=== PATIENT | female | born 1960 | race Two or more races ===

== ENCOUNTER 2024-03-20 10:26 | Outpatient (AMB) | payer OTHER, SELFPAY ==
[2024-03-20 10:27] VITALS: BP 114/70; PULSE 92; O2SAT 97; BMI 27.8
--- NOTE | 2024-03-20 10:27 | A.OFFPC_ITS ---
Vital Signs 03/20/24 10:27 Height 5 ft 2 in Weight 152 lb BMI 27.8 BP 114/70 Blood Pressure Location Lt brachial Position Sitting Pulse 92 Pulse Source Pulse Oximeter Pulse Oximetry (%) 97 Oxygen Delivery Method Room Air Intake Visit Reasons: New Patient Religion Teacher Required: Yes Religion Teacher Language: Malian Allergies aspirin Allergy (Mild, Verified 03/20/24 10:43) Hives Medication List - Last Reconciled 03/20/24 by Arlene Castro PA-C No Known Home Meds Tobacco use date assessed: 03/20/24 Dental Screening Dental Screen Date: 03/20/24 Did you have a dental visit in the last 12 months?: No Did you have a dental problem in the last 6 months where you did not have access to dental care?: No Was dental information given to patient?: Patient has dentist HPI New Patient HPI Details 63-year-old female with no documented pa st medical history coming to the office for the 1st time.? She is not known to [facility]. spanish interpreter was used for the duration of this appointment. She was previously seen by PCP over 2 years ago and is not up-to-date on most routine screenings. She does have some concerns today the 1st being occasionally when she has certain foods she will get rashes all over her body and her lips get swollen but she can not pinpoint a single irritant. Symptoms typically self resolve and she has never been hospitalized for these. She also mentions when she goes from sitting to standing or other positional changes she will occasionally get lightheaded and denies vertigo symptoms. Typically when she has these episodes she is able to sit and take some deep breaths and it self resolves. She has been having occasional shortness of breath and chest tightness and uses her 's albuterol pump which improves her symptoms. No previous history of asthma and no triggers identified. Lastly she is having right lower side pain for about 6 months and does not identify any irritating or relieving factors. [facility] Family History (Updated 03/20/24 @ 10:45 by Arlene Castro PA-C) Brother Prostate cancer Mother Colon cancer Social History Housing: Apartment Patient Tobacco Use Status: Never used Tobacco service: No Cognitive needs: No Hearing needs: No Vision needs: No Questionnaire PHQ-9 Over the last 2 weeks, how often have you been bothered by any of the following problems? 1. Little interest or pleasure in doing things: not at all 2. Feeling down, depressed, or hopeless: not at all 3. Trouble falling or staying asleep, or sleeping too much: not at all 4. Feeling tired or having little energy: not at all 5. Poor appetite or overeating: not at all 6. Feeling bad about yourself - or that you are a failure or have let yourself or your family down: not at all 7. Trouble concentrating on things, such as reading the newspaper or watching television: not at all 8. Moving or speaking so slowly that other people could have noticed. Or the opposite - being so fidgety or restless that you have been moving around a lot more than usual: not at all 9. Thoughts that you would be better off or of hurting yourself in some way: not at all Total score: 0 Depression Screening Interpretation: Negative Depression Screening Done: Yes 98665 - PHQ-9 Billing: Yes Source: Developed by Drs. Wiliam Strickland, Cheri Moreno, Brandon Pruitt and colleagues, with an educational pedro from [employer]. Thrive Questionnaire Date Thrive assessed: 03/20/24 I am a: Patient What is your living situation today?: I have a steady place to live Within the past 12 months, did the food you bought not last and you didn't have the money to get more?: Never true Within the past 12 months, did you worry whether your food would run out before you got money to buy more?: Never true Do you have trouble paying for medicines?: No Do you have trouble getting transportation to medical appointments?: No Do you have trouble paying your heating and electricity bill?: No Do you have trouble taking care of your child, family member or friend?: No Do you have trouble with day-to-day activities such as bathing, preparing meals, shopping, managing finances, etc.?: No Are you currently unemployed and looking for a job?: No Are you interested in more education?: No Please select the resources that you would like help with: None Currently or been in a relationship where the following occur: No concerns reported THRIVE Score: 0 AUDIT C Alcohol Use Questionnaire (AUDIT-C) 1. How often do you have a drink containing alcohol?: Never 2. How many drinks containing alcohol do you have on a typical day when you are drinking?: 1 or 2 (0) 3. How often do you have six or more drinks on one occasion?: Never Total Score: 0 JOSE CARLOS-7 AMB Questionnaire JOSE CARLOS-7 Date JOSE CARLOS - 7 assessed: 03/20/24 Feeling nervous, anxious, or on edge: 0 = Not at all Not being able to stop or control worryin = Not at all Worrying too much about different things: 0 = Not at all Trouble relaxin = Not at all Being so restless that it is hard to sit still: 0 = Not at all Becoming easily annoyed or irritable: 0 = Not at all Feeling afraid as if something awful might happen: 0 = Not at all Total JOSE CARLOS-7 score (0-4 normal; 5-9 mild; 10-14 moderate; 15-21 severe): 0 Source: Developed by Drs. Wiliam Strickland, Cheri Moreno, Brandon Pruitt and colleagues, with an educational pedro from [employer]. JOSE CARLOS-7 Assessment Billing JOSE CARLOS-7 Assessment Tool: JOSE CARLOS-7 Assessment 54408 Review of Systems Const Denies body aches, Denies fatigue, Denies fever(s), Denies frequent falls, Denies headache(s) and Denies weakness Eyes Reports no additional complaints and Denies change in vision ENT Denies dysphagia, Denies dizziness, Denies facial pain, Denies headache(s), Denies nasal congestion and Denies odynophagia Card Denies chest pain, Denies syncope, Denies irregular heart rhythm, Denies leg edema, Reports lightheadedness and Reports dyspnea (Occasional) Resp Reports cough (Occasional) and Reports dyspnea (Occasional) GI Reports constipation, Denies dysphagia, Denies dyspepsia, Denies diarrhea, Denies nausea, Denies odynophagia and Denies vomiting Details: Does mentioned some time she has a funny feeling with urination Denies urinary frequency, Denies dysuria, Denies urinary hesitancy and Denies urinary urgency Musc Denies back pain and Denies myalgias Skin/Breast Reports as per HPI Neuro Denies dizziness, Denies syncope, Denies frequent falls, Denies headache(s) and Denies weakness Psych Reports no additional complaints Endo Denies fatigue Physical exam (Primary Care) Vital Signs: Last Vital Signs Pulse 92 03/20/24 10:27 BP 114/70 03/20/24 10:27 Pulse Ox 97 03/20/24 10:27 Oxygen Delivery Method Room Air 03/20/24 10:27 BMI result Body Mass Index 27.8 Tobacco/Smoking Status: Tobacco use Status Tobacco use date assessed 03/20/24 03/20/24 10:28 Patient Tobacco Use Status Never used Tobacco 03/20/24 10:37 PHQ-9: PHQ-9 Score PHQ-9: Total score 0 03/20/24 10:37 Depression Screening Interpretation: Negative Thrive Assessment: Date of Thrive Assessment Date Thrive assessed 03/20/24 03/20/24 10:28 Currently or been in a relationship where the following occur: No concerns reported Const General: cooperative, healthy appearing, comfortable and no acute distress Orientation/consciousness: patient oriented x3 HENMT Head: Yes normocephalic Ears: hearing grossly normal bilaterally General nose exam: Normal external nose present Eyes General: appearance normal, both eyes and all related structures Conjunctivae: conjunctivae normal Neck Neck: Yes full ROM and Yes no lymphadenopathy Resp Effort & Inspection: normal respiratory effort Auscultation: clear to auscultation bilaterally, no crackles, no rales, no rhonchi and no wheezes Cardio Rate: regular rate Rhythm: regular rhythm GI Palpation (GI): Soft to palpation, not firm, nontender, no guarding, not rigid and no masses General: Yes no CVA tenderness Back/Spine/Pelvis Back: no CVA tenderness Skin General skin exam: no rashes or lesions noted Neuro General: patient oriented x3 Gait exam (Neuro): Normal gait present Extrem General: Yes normal to inspection, Yes full ROM and No edema Psych Affect: normal affect Attitude: cooperative Insight: Good insight present (Psych) Judgement: Good judgement present (Psych) Assessment and Plan Assessment & Plan (1) Cough: Code(s): R05.9 - Cough, unspecified Plan: Patient states she will occasionally have cough and shortness of breath and uses her 's albuterol inhaler with good relief. She has never been diagnosed with asthma in the past and does not identify any triggers to her symptoms. Ordered for pulmonary function testing for further evaluation. (2) Hives: Code(s): L50.9 - Urticaria, unspecified Plan: She has been having hives and lip swelling with food but is unsure of exact irritant. Advised patient to have liquid Benadryl on hand at all times in the event her symptoms do not self resolve. Also reviewed red flag symptoms of anaphylaxis and when to presents to the ER. Referral placed for cash shortage investigator today. (3) Impaired glucose tolerance: Code(s): R73.02 - Impaired glucose tolerance (oral) Plan: Patient states in the past she has been diagnosed with sugar problems but is unsure of what. Ordered for A1c for further evaluation. (4) Right lower quadrant pain: Code(s): R10.31 - Right lower quadrant pain Plan: Patient reports right lower quadrant tenderness however no tenderness on exam to right lower quadrant or right flank. Ordered for blood work and urinalysis for further evaluation. No indication of acute abdomen at this time. (5) Lightheadedness: Code(s): R42 - Dizziness and giddiness Plan: Based on history patient most likely has some aspect of orthostatic hypotension as most of her symptoms come from positional changes. Advised patient to stay well hydrated and added electrolytes with Gatorade or liquid IV. Also recommended trial of compression stockings and advised patient to moves slowly when moving from sitting to standing. Ordered blood work for further evaluation as well. (6) Constipation: Code(s): K59.00 - Constipation, unspecified Plan: Advised patient to increase water intake as well as vegetable and fruit intake. Prescription for senna sent to pharmacy. Plan Patient is not up-to-date on routine annual mammograms and referral was placed today. Her last colonoscopy was over 10 years ago and referral placed to gastroenterology today. Updated blood work ordered. This note was constructed using voice recognition software. While every effort has been made to ensure accuracy and property man, still areas may have been included sometimes these areas may affect the content or meeting of the given symptoms. Total time spent caring for the patient today was 30 minutes. This includes time spent before the visit reviewing the chart, time spent during the visit, and time spent after the visit and documentation. Orders: Orders MM tomosynthesis screening BI Today Z12.31 - Encounter for screening mammogram for malignant neoplasm of breast Hemoglobin A1c Today Z00.00 - Encounter for general adult medical examination without abnormal findings Vitamin B12 and Folate Today Z00.00 - Encounter for general adult medical exami [facility] without abnormal findings PFT pulmonary function test Today R05.9 - Cough, unspecified Complete Blood Count Auto Diff Today Z00.00 - Encounter for general adult medical examination without abnormal findings Comprehensive Met. Panel Today Z00.00 - Encounter for general adult medical examination without abnormal findings Free T4 (Free Thyroxine) Today Z00.00 - Encounter for general adult medical examination without abnormal findings Lipid Panel Today Z00.00 - Encounter for general adult medical examination without abnormal findings TSH reflex Free T4 Today Z00.00 - Encounter for general adult medical examination without abnormal findings Vitamin D 25-OH (D2 and D3) Today Z00.00 - Encounter for general adult medical examination without abnormal findings UA CC w/rflx Micro + Cult Today R35.89 - Other polyuria Referrals Allergy & Immunology Referral L50.9 - Urticaria, unspecified Gastroenterology Referral Z12.11 - Encounter for screening for malignant neoplasm of colon Medications: New sennosides (senna) 8.6 mg PO BEDTIME 20 caps 0RF Coding Level of Care Code New Pt Level 4 (43161) Diagnoses Cough R05.9 Hives L50.9 Impaired glucose tolerance R73.02 Right lower quadrant pain R10.31 Lightheadedness R42 Constipation K59.00 Additional Codes JOSE CARLOS-7 Assessment Billing - JOSE CARLOS-7 Assessment Tool: JOSE CARLOS-7 Assessment 19717 ([id number])
== END 2024-03-20 11:09 | disposition home or self-care (01) ==
DX: R05.9 Cough, unspecified (principal); L50.9 Urticaria, unspecified; R73.02 Impaired glucose tolerance (oral); R10.31 Right lower quadrant pain; R42 Dizziness and giddiness; K59.00 Constipation, unspecified

== ENCOUNTER → 2024-03-20 10:26 | Outpatient (BNVA) | payer OTHER, SELFPAY | DX: R05.9 Cough, unspecified (principal); L50.9 Urticaria, unspecified; R73.02 Impaired glucose tolerance (oral); R10.31 Right lower quadrant pain; R42 Dizziness and giddiness; K59.00 Constipation, unspecified | CPT/HCPCS: 96127; 99202 ==

== ENCOUNTER 2024-04-30 13:11 | Outpatient (REF) | payer OTHER, SELFPAY ==
--- NOTE | ~2024-04-30 | MM_ITS ---
EXAMINATION: MM SCREENING DIGITAL BREAST TOMOSYNTHESIS, BILATERAL CLINICAL INFORMATION: Screening. Asymptomatic. COMPARISON: Mammography: Baseline. TECHNIQUE: Digital breast mammography with tomosynthesis is performed in both the craniocaudal and mediolateral oblique views along with computer-aided detection (CAD). FINDINGS: There are scattered areas of fibroglandular density (ACR BI-RADS breast composition Category b). There are no significant masses, abnormal calcifications, or other abnormalities. MM/MM tomosynthesis screening BI IMPRESSION: No mammographic evidence of malignancy. ASSESSMENT: BI-RADS BI-RADS 1 - Negative RECOMMENDATION: Routine annual mammography screening. 1 year F/U This examination should not preclude the clinical evaluation of a suspicious palpable abnormality. This patient's information was entered into a reminder system with a target due date for their next mammogram. Electronically signed by: Beverly Sevilla DO 05/09/2024 01:40 PM [facility]
[2024-04-30 08:35] VITALS: PULSE 88; RESP 16; O2SAT 97
--- NOTE | 2024-04-30 13:47 | PFT_ITS ---
Flows: FEV1: 92 % of predicted at 2.05 L FVC: 80 % of predicted at 2.25 L FEV1/FVC: 91 % Bronchodilator response: Not performed Volumes: Total lung capacity: 84 % of predicted at 3.95 L Residual volume: 78 % of predicted at 1.31 L Slow vital capacity: 87 % of predicted at 2.64 L Expiratory reserve volume: 119 % of predicted at 0.86 L Diffusion capacity: Normal Impression: No obstructive or restrictive ventilatory defect. No bronchodilator response. Normal pulmonary function test. MTDD
== END 2024-04-30 13:12 | disposition home or self-care (01) ==
LOC: HO.RESP 13:11
DX: Z12.31 Encounter for screening mammogram for malignant neoplasm of breast (principal); R05.9 Cough, unspecified
CPT/HCPCS: 77063; 77067; 94010; 94640; 94727; 94729

== ENCOUNTER → 2024-04-30 13:47 | Outpatient (BNV) | payer OTHER, SELFPAY | PROVIDERS: Visit Provider Internal Medicine Pulmonary Disease | DX: R05.9 Cough, unspecified (principal) | CPT/HCPCS: 94060; 94727; 94729 ==

== ENCOUNTER → 2024-04-30 15:00 | Outpatient (BNV) | payer OTHER, SELFPAY | PROVIDERS: Visit Provider Internal Medicine | DX: Z12.31 Encounter for screening mammogram for malignant neoplasm of breast (principal) | CPT/HCPCS: 77063; 77067 ==

== ENCOUNTER 2024-05-15 11:21 | Emergency (ER) | payer OTHER, SELFPAY ==
[2024-05-15 11:22] VITALS: BP 97/61; PULSE 101; RESP 18; TEMP 36.6; O2SAT 96; BMI 28.3
--- NOTE | 2024-05-15 11:27 | ED_ITS ---
HPI - Female Genitourinary General Chief complaint: Urogenital-Female Stated complaint: uti Time Seen by Provider: 05/15/24 12:07 Source: patient Mode of arrival: ambulatory Limitations: no limitations History of Present Illness ED Provider: Dylon Frederick HPI Narrative: 64-year-old female presents to ED for diverticulosis, presents to ED for dysuria and increased urinary frequency. Patient denies any calf pain, abdominal pain, nausea, vomiting, fever, or chills. Related Data Previous Rx's ?Medication ?Instructions ?Recorded sennosides 8.6 mg capsule (senna) 8.6 mg PO BEDTIME #20 caps 03/20/24 cephalexin 500 mg capsule 500 mg PO Q12H 7 days #14 caps 05/15/24 Allergies Allergy/AdvReac Type Severity Reaction Status Date / Time aspirin Allergy Mild Hives Verified 05/15/24 11:25 Review of Systems Review of Systems: dysuria and increase urinary frequiency Yes all other systems are reviewed and are negative [facility] Family History Family History (Updated 03/20/24 @ 10:45 by Arlene Castro PA-C) Brother Prostate cancer Mother Colon cancer Social History Social History Housing: Apartment Patient Tobacco Use Status: Never used Tobacco Advance Directives: No Advance Directives Information Provided: Yes Do you have a plan to hurt others: No Plan service: No Cognitive needs: No Hearing needs: No Vision needs: No Physical Exam Vital Signs: Vital Signs: Last Vital Signs Temp 97.9 F 05/15/24 12:55 Pulse 93 05/15/24 12:55 Resp 18 05/15/24 12:55 BP 123/80 05/15/24 12:55 Pulse Ox 97 05/15/24 12:55 O2 Del Method Room Air 05/15/24 12:55 BMI result Body Mass Index 28.3 Const: General: cooperative, healthy appearing, comfortable, no acute distr ess, well developed, alert, awake and Physically active Orientation/consciousness: patient oriented x3 HEENT: Head: Yes normal to inspection, Yes No palpable skull fracture present, Yes normocephalic and Yes atraumatic Eyes: General: appearance normal, both eyes and all related structures Neck: Neck: Yes normal visual inspection, Yes full ROM, Yes no lymphadenopathy, Yes no meningeal signs, Yes trachea midline, Yes supple, No anterior neck swelling and No tender Chest: Chest palpation & inspection: normal inspection of the chest and normal palpation of entire chest wall Resp: Effort & Inspection: normal respiratory effort and able to speak in complete sentences Auscultation: clear to auscultation bilaterally Cardio: Jugular venous distension: no JVD Heart sounds: S1 normal heart sound present and S2 normal heart sound present GI: Inspection: Yes normal to inspection Palpation (GI): Soft to palpation, not firm, nontender, no guarding and not rigid : General: No CVA tenderness and Yes no CVA tenderness Back/Spine/Pelvis: Back: no CVA tenderness, No CVA tenderness and No back tenderness Skin: General skin exam: no rashes or lesions noted, elasticity normal and turgor normal Neuro: General: patient oriented x3, gait normal, tone normal, moves all extremities, Normal light touch and pain sensation, no meningeal signs, no focal motor deficits, CN's II-XI intact bilaterally and normal sensation to monofilament Extrem: General: Yes normal to inspection, Yes full ROM and Yes capillary refill normal Psych: Appearance: grossly normal, well kempt and not disheveled Course Course Course Narrative: RME: 54-year-old female presents to ED for urinary symptoms for 1 week described as dysuria and increased urinary frequency. UA ordered Medical Decision Making Medical Decision Making [facility] Narrative: 64 yold yold female presents to the ED for dysuria and increase Urinary frequency. Not suspecting kidney stones, pyelonephritis, urosepsis, hydronephrosis, or STI. Patient explained worrisome signs and informed to return to the ED immediately. Differential Diagnosis Differential Diagnoses: The differential diagnosis associated with the presentation includes (UTI) Admission/Observation Consideration of admission/observation: Escalation of care including admission/observation considered Lab Data [facility] Lab Attestation statement: I reviewed the patient's lab results. Labs: Lab Results 05/15/24 Range/Units 11:48 Urine Color Yellow Urine Appearance Clear Urine pH 7.0 (5.0-9.0) Ur Specific [place] 1.010 (1.005-1.025) Urine Protein Negative (Neg-Trace) mg/dL Urine Glucose (UA) Negative (Negative) mg/dL Urine Ketones Negative (Negative) mg/dL Urine Blood Negative (Negative) Urine Nitrite Positive H (Negative) Ur Leukocyte Esterase Small (1+) H (Negative) Urine RBC 0-2 (0-2) /HPF Urine WBC 21-50 H (0-5) /HPF Ur Squamous Epith Cells 0-2 (0-2) /HPF Urine Bacteria 4+ (None Seen) Hyaline Casts 0-2 (0-2) /LPF Independent Historian Clinical information obtained from an independent historian. History obtained from or confirmed by: Other (patinet) External Record Review External record reviewed: Other (Prior visit) Discharge Plan Discharge Clinical Impression: UTI (urinary tract infection) Patient Disposition: Home, Self-Care Instructions: Urinary Tract Infection in Men (ED) Additional Instructions: You tested positive for a urinary tract infection. you will be discharged with antibiotics. Recommend follow up with PCP. Return to the ED immediately for abdominal pain, flank pain, fever, chills, dysuria, hematuria, nausea, vomiting, or any other concerning symptoms. Prescriptions: New cephalexin 500 mg capsule 500 mg PO Q12H 7 Days Qty: 14 0RF No Action senna 8.6 mg capsule 8.6 mg PO BEDTIME Qty: 20 0RF Interventions: ED Discharge Assessment Last Done: 05/15/24 12:55 Discharge Date/Time: 05/15/24 12:55 Print Language: Puerto [place]ican
[2024-05-15 11:56] LABS: Appearance Urine Clear; Color Urine Yellow; Glucose Urine UA Negative (Negative); Leukocyte Esterase Urine Small (1+) (Negative); Nitrite Urine Positive (Negative); UMIC TRIGGER UACC YES; Urine Blood Negative (Negative); Urine Ketones Negative (Negative); Urine Protein Negative (Neg-Trace)
[2024-05-15 11:59] LABS: Bacteria Urine 4+ (None Seen); Hyaline Casts Urine 0-2 /LPF (0-2); RBC Urine 0-2 /HPF (0-2); Squamous Epithelial Cell Urine 0-2 /HPF (0-2); UACC Culture Trigger YES; WBC Urine 21-50 /HPF (0-5)
[2024-05-15 12:28] VITALS: BP 123/80; PULSE 93; RESP 18; TEMP 36.6; O2SAT 97
[2024-05-15 12:55] VITALS: BP 123/80; PULSE 93; RESP 18; TEMP 36.6; O2SAT 97
== END 2024-05-15 12:55 | disposition home or self-care (01) ==
PROVIDERS: Physician Assistant; Emergency Provider Emergency Medicine
DX: N39.0 Urinary tract infection, site not specified (principal); R30.0 Dysuria; Z79.899 Other long term (current) drug therapy
CPT/HCPCS: 81001; 87086; 87088; 87186; 99283

== ENCOUNTER 2024-06-30 09:23 | Outpatient (REF) | payer OTHER, SELFPAY ==
[2024-06-30 10:01] LABS: MANUAL DIFF FLAG NO
[2024-06-30 10:46] LABS: Basophils Percent Auto 0.8 % (0-2); Eosinophils Absolute Auto 0.2 X10*3/uL (0.0-0.4); Eosinophils Percent Auto 3.1 % (0-4); Hematocrit 41.9 % (37.0-47.0); Hemoglobin 13.5 g/dl (12.0-16.0); Imm Gran Abs Auto 0.04 X10*3/uL (0.00-0.03); Imm Gran Pct Auto 0.8 % (0.0-0.4); Lymphocytes Absolute Auto 1.8 X10*3/uL (1.2-4.9); Lymphocytes Percent Auto 34.4 % (20-40); Mean Corpuscular HGB Conc 32.2 g/dl (31.0-35.0); Mean Corpuscular Hemoglobin 25.4 pg (27.0-33.0); Mean Corpuscular Volume 78.9 fL (80.0-98.0); Mean Platelet Volume 10.6 fL (9.4-12.3); Monocytes Absolute Auto 0.5 X10*3/uL (0.1-1.2); Monocytes Percent Auto 8.7 % (2-11); Neutrophils Absolute Auto 2.7 x10*3/uL (2.0-8.3); Neutrophils Percent Auto 52.2 % (45-73); Platelet Count 232 X10*3/uL (160-400); Red Blood Count 5.31 X10*6/uL (4.20-5.50); Red Cell Distribution Width 14.4 % (11.0-16.0); White Blood Count 5.2 X10*3/uL (4.8-10.8)
[2024-06-30 11:21] LABS: Estimated Average Glucose 120 mg/dL; Hemoglobin A1C 135.5873 umol/L; Hemoglobin A1c % 5.8 % (<6.0); Total Hemoglobin (HGBA1C) 3389.2449 umol/L
[2024-06-30 11:53] LABS: Folate 10.5 ng/mL (> or = 4.0); Vitamin B12 484 pg/mL (200-900)
[2024-06-30 12:25] LABS: Free T4 (Free Thyroxine) 0.98 ng/dL (0.71-1.85); TSH reflex Free T4 1.74 uIU/mL (0.32-4.0)
[2024-06-30 12:26] LABS: Alanine Aminotransferase 16 U/L (0-31); Albumin Level 3.9 g/dL (3.5-5.0); Alkaline Phosphatase 67 U/L (39-117); Anion Gap 9 (12-20); Aspartate Amino Transferase 19 U/L (5-31); Bilirubin Total 0.6 mg/dL (0.0-1.0); Blood Urea Nitrogen 9 mg/dL (9-16); Calcium 9.7 mg/dL (8.4-10.2); Carbon Dioxide 25 mmol/L (22-29); Chloride 111 mmol/L (96-108); Cholesterol 217 mg/dL (<200); Estimated Glomerular Filt Rate > 60; Glucose Random 98 mg/dL (60-115); HDL Cholesterol 48 mg/dL (>40); LDL Cholesterol Calculated 144 mg/dL (<100); Potassium 3.6 mmol/L (3.3-5.1); Sodium 141 mmol/L (135-145); Total Protein 6.9 g/dL (6.5-8.0); Triglycerides 128 mg/dL (<150)
[2024-06-30 12:27] LABS: Appearance Urine Clear; Color Urine Yellow; Glucose Urine UA Negative (Negative); Leukocyte Esterase Urine Large (3+) (Negative); Nitrite Urine Positive (Negative); PH 5.5 (5.0-9.0); UMIC TRIGGER UACC YES; Urine Blood Negative (Negative); Urine Ketones Negative (Negative); Urine Protein Negative (Neg-Trace)
[2024-06-30 12:30] LABS: Bacteria Urine 4+ (None Seen); Hyaline Casts Urine 0-2 /LPF (0-2); RBC Urine 0-2 /HPF (0-2); UACC Culture Trigger YES; WBC Urine >50 /HPF (0-5)
[2024-07-03 14:33] LABS: Vitamin D 25-OH, D2 10 ng/mL; Vitamin D 25-OH, D3 21 ng/mL; Vitamin D 25-OH, Total 31 ng/mL (30-100)
== END 2024-06-30 09:24 | disposition home or self-care (01) ==
LOC: HO.LAB 09:23
DX: Z00.00 Encounter for general adult medical examination without abnormal findings (principal)
CPT/HCPCS: 36415; 80053; 80061; 81001; 82306; 82607; 82746; 83036; 84439; 84443; 85025; 87086; 87088; 87186

== ENCOUNTER 2024-07-01 07:45 | Outpatient (AMB) | payer OTHER, SELFPAY ==
[2024-07-01 08:00] VITALS: BP 114/62; PULSE 85; O2SAT 97; BMI 28.2
--- NOTE | 2024-07-01 08:00 | A.OFFPC_ITS ---
Vital Signs 07/01/24 08:00 Height 5 ft 2 in Weight 154 lb BMI 28.2 BP 114/62 Blood Pressure Location Lt brachial Position Sitting Pulse 85 Pulse Source Pulse Oximeter Pulse Oximetry (%) 97 Oxygen Delivery Method Room Air Intake Visit Reasons: annual exam Plate Painter Required: Yes Plate Painter Language: [place] Allergies aspirin Allergy (Mild, Verified 07/01/24 08:15) Hives Medication List - Last Reconciled 07/01/24 by Arlene Castro PA-C albuterol sulfate 90 mcg/actuation 1 puff inhalation QID hydroxyzine HCl 25 mg PO BID PRN sennosides (senna) 8.6 mg PO BEDTIME Tobacco use date assessed: 07/01/24 Fall risk assessment: No Falls in past year Last assessed Fall Risk: 07/01/24 Dental Screening Dental Screen Date: 07/01/24 Did you have a dental visit in the last 12 months?: Yes Did you have a dental problem in the last 6 months where you did not have access to dental care?: No Was dental information given to patient?: Patient has dentist HPI annual exam HPI Details 64 year old female with past history of impaired glucose tolerance and constipation last seen February 2024 coming in for annual exam.? In review of the notes, patient was seen in emergency department for urinary tract infection April 2024.? Patient completed pulmonary function testing which was normal and mammogram completed April 2024 BI-RADS 1 follow up in [address] commissioner used for the duration of this visit ID [id number]. [id number]. Patient has an appointment on July 23 with the retail pricing coordinator for her chronic hives. Kingsley lujan still has occasional cough and has been using nebulized albuterol that was previously given by a different PCP. She is having lower pelvic pain and frequent urination and urinalysis positive for UTI. Patient tells us today for the last several months she has been having sharp left-sided headache that lasts about 2 minutes in his followed by numbness and tingling that takes hours to resolve. Denies any weakness or pain with the numbness and tingling. Has not had this in the past and states she will pinch her face and can not feel anything. PFSH Family History Brother Prostate cancer Mother Colon cancer Social History Housing: Apartment Patient Tobacco Use Status: Never used Tobacco Tobacco use type: Cigarette e-Cigarette/Vaping Use: Never Used Second Hand Smoke Exposure: No service: No Cognitive needs: No Hearing needs: No Vision needs: No Questionnaire PHQ-9 Over the last 2 weeks, how often have you been bothered by any of the following problems? 1. Little interest or pleasure in doing things: not at all 2. Feeling down, depressed, or hopeless: not at all 3. Trouble falling or staying asleep, or sleeping too much: not at all 4. Feeling tired or having little energy: not at all 5. Poor appetite or overeating: not at all 6. Feeling bad about yourself - or that you are a failure or have let yourself or your family down: not at all 7. Trouble concentrating on things, such as reading the newspaper or watching television: not at all 8. Moving or speaking so slowly that other people could have noticed. Or the opposite - being so fidgety or restless that you have been moving around a lot more than usual: not at all 9. Thoughts that you would be better off or of hurting yourself in some way: not at all Total score: 0 Source: Developed by Drs. Wiliam Strickland, Cheri Moreno, Brandon Pruitt and colleagues, with an educational pedro from [employer]. Thrive Questionnaire Date Thrive assessed: 07/01/24 I am a: Patient What is your living situation today?: I have a steady place to live Within the past 12 months, did the food you bought not last and you didn't have the money to get more?: Sometimes True Within the past 12 months, did you worry whether your food would run out before you got money to buy more?: Sometimes True Do you have trouble paying for medicines?: No Do you have trouble getting transportation to medical appointments?: No Do you have trouble paying your heating and electricity bill?: I choose not to answer this question Do you have trouble taking care of your child, family member or friend?: I choose not to answer this question Do you have trouble with day-to-day activities such as bathing, preparing meals, shopping, managing finances, etc.?: No Are you currently unemployed and looking for a job?: No Are you interested in more education?: I choose not to answer this question Please select the resources that you would like help with: Housing/[facility] THRIVE Score: 2 AUDIT C Alcohol Use Questionnaire (AUDIT-C) 1. How often do you have a drink containing alcohol?: Never Total Score: 0 JOSE CARLOS-7 AMB Questionnaire JOSE CARLOS-7 Date JOSE CARLOS - 7 assessed: 07/01/24 Feeling nervous, anxious, or on edge: 0 = Not at all Not being able to stop or control worryin = Several days Worrying too much about different things: 1 = Several days Trouble relaxin = Several days Being so restless that it is hard to sit still: 0 = Not at all Becoming easily annoyed or irritable: 0 = Not at all Feeling afraid as if something awful might happen: 0 = Not at all Total JOSE CARLOS-7 score (0-4 normal; 5-9 mild; 10-14 moderate; 15-21 severe): 3 Source: Developed by Drs. Wiliam Strickland, Cheri Moreno, Brandon Pruitt and colleagues, with an educational pedro from [employer]. Review of Systems Const Denies body aches, Denies fatigue, Denies fever(s), Denies frequent falls, Reports headache(s) and Denies weakness Eyes Reports no additional complaints and Denies change in vision ENT Details: Facial tingling Denies dysphagia, Denies dizziness, Denies facial pain, Reports headache(s), Denies nasal congestion and Denies odynophagia Card Denies chest pain, Denies syncope, Denies irregular heart rhythm, Denies leg edema, Denies lightheadedness and Denies dyspnea Resp Reports cough (occasional) and Denies dyspnea GI Denies abdominal pain, Reports constipation, Denies dysphagia, Denies dyspepsia, Denies diarrhea, Denies nausea, Denies odynophagia and Denies vomiting Details: low pelvic pain and frequent urination Denies urinary frequency, Denies dysuria, Denies urinary hesitancy and Denies urinary urgency Musc Denies back pain and Denies myalgias Skin/Breast Reports system reviewed and no additional complaints, except as documented Neuro Denies dizziness, Denies syncope, Denies frequent falls, Reports headache(s) and Denies weakness Psych Reports no additional complaints Endo Denies fatigue Physical exam (Primary Care) Vital Signs: Last Vital Signs Pulse 85 07/01/24 08:00 BP 114/62 07/01/24 08:00 Pulse Ox 97 07/01/24 08:00 Oxygen Delivery Method Room Air 07/01/24 08:00 BMI result Body Mass Index 28.2 Tobacco/Smoking Status: Tobacco use Status Tobacco use date assessed 07/01/24 07/01/24 08:04 Patient Tobacco Use Status Never used Tobacco 07/01/24 08:04 Tobacco use type Cigarette 07/01/24 08:04 e-Cigarette/Vaping Use Never Used 07/01/24 08:04 PHQ-9: PHQ-9 Score PHQ-9: Total score 0 07/01/24 10:34 Thrive Assessment: Date of Thrive Assessment Date Thrive assessed 07/01/24 07/01/24 08:04 Const General: cooperative, healthy appearing, comfortable and no acute distress Orientation/consciousness: patient oriented x3 HENMT Head: Yes normocephalic Ears: hearing grossly normal bilaterally General nose exam: Normal external nose present Eyes General: appearance normal, both eyes and all related structures Conjunctivae: conjunctivae normal Pupils: Equal, round and reactive pupils present EOM: No Nystagmus present Neck Neck: Yes full ROM and Yes no lymphadenopathy Resp Effort & Inspection: normal respiratory effort Auscultation: clear to auscultation bilaterally, no crackles, no rales, no rhonchi and no wheezes Cardio Rate: regular rate Rhythm: regular rhythm GI Palpation (GI): Soft to palpation, not firm, nontender, no guarding and not rigid General: Yes no CVA tenderness Back/Spine/Pelvis Back: no CVA tenderness Skin Other: scattered hives on arms and abdomen Neuro Other: Facial sensation intact bilaterally General: patient oriented x3 Cranial nerves: Yes CN's II-XII intact bilaterally, Yes Equal, round and reactive pupils present, Yes Normal facial strength present, Yes Ability to bilaterally elevate shoulders present and No Nystagmus present Gait exam (Neuro): Normal gait present Extrem General: Yes normal to inspection, Yes full ROM and No edema Psych Affect: normal affect Attitude: cooperative Insight: Good insight present (Psych) Judgement: Good judgement present (Psych) Coding Level of Care Code Est Pt Level 4 (82559) Est Pt Prev Care 40-64y(95640) Diagnoses Hypercholesterolemia E78.00 Constipation K59.00 Impaired glucose tolerance R73.02 Overweight (BMI 25.0-29.9) E66.3 Asthma J45.909 Cystitis N30.90 Facial numbness R20.0 Assessment & Plan Assessment & Plan (1) Hypercholesterolemia: Code(s): E78.00 - Pure hypercholesterolemia, unspecified Category: Medical Plan: Avoid foods that are high in cholesterol such as red meat, fried foods, eggs and baked goods. Triglyceride goal of less than 150 and LDL goal of less than 130. Cholesterol elevated at 144 on last labs discussed with patient she will work on dietary modification and follow up in 3 months. (2) Constipation: Code(s): K59.00 - Constipation, unspecified Category: Medical Plan: Currently on senna and has seen little improvement. Will give patient Dulolax to use for two days and then transition back to Senna for maintenance. Encouraged to drink plenty of water and increase fiber intake. (3) Impaired glucose tolerance: Code(s): R73.02 - Impaired glucose tolerance (oral) Category: Medical Plan: Decrease the amount of carbohydrates such as pasta, bread, rice, and potatoes and limit the amount of sweets. Although fruits are generally healthy they should be eaten in moderation as they are still high in sugar. A1c 5.8% on last labs (4) Overweight (BMI 25.0-29.9): Code(s): E66.3 - Overweight Category: Medical Plan: Healthy diet and regular exercise is encouraged. (5) Asthma: Code(s): J45.909 - Unspecified asthma, uncomplicated Category: Medical Plan: Asthma currently controlled on present medications. Continue on albuterol as needed.? Avoid triggers such as allergies. Previous diagnosis but PFT was normal. (6) Cystitis: Code(s): N30.90 - Cystitis, unspecified without hematuria Category: Medical Plan: Patient having frequent urination and lower pelvic pain previously treated in ED in April with Keflex. Will treat with Nitrofurantoin for 7 days and have patient repeat urinalysis to ensure infection has cleared. Reviewed red flag symptoms and when to present for re-evaluation. (7) Facial numbness: Code(s): R20.0 - Anesthesia of skin Category: Medical Plan: We will order for head CT for further evaluation. Reviewed red flag symptoms and when to follow up for re-evaluation. Can consider referral to Neurology. Denies any change in vision but we will order for ESR and CRP to evaluate for possible trigeminal neuralgia. Plan This note was constructed using voice recognition software. While every effort has been made to ensure accuracy and soil checker, still areas may have been included sometimes these areas may affect the content or meeting of the given symptoms. Total time spent caring for the patient today was 30 minutes. This includes time spent before the visit reviewing the chart, time spent during the visit, and time spent after the visit and documentation. Orders: Orders Lipid Panel 3 Months E78.00 - Pure hypercholesterolemia, unspecified UA CC w/rflx Micro + Cult 7 Days R35.89 - Other polyuria XR DEXA axial skeleton Today Z78.0 - Asymptomatic menopausal state CT head/brain wo IV con Today R20.0 - Anesthesia of skin Medications: New hydroxyzine HCl 25 mg PO BID PRN 30 tabs 0RF itching nitrofurantoin monohyd/m-cryst 100 mg must administer with a meal/food 100 mg PO Q12H 14 caps 0RF 7 days bisacodyl (Dulcolax (bisacodyl)) 5 mg PO BEDTIME 2 tabs 0RF 2 days albuterol sulfate 0.63 mg (3 mL) inhalation QID PRN 75 mL 0RF shortness of breath or wheezing Refilled sennosides (senna) 8.6 mg PO BEDTIME 20 caps 0RF sennosides (senna) 8.6 mg PO BEDTIME 30 caps 0RF
== END 2024-07-01 08:52 | disposition home or self-care (01) ==
DX: Z00.00 Encounter for general adult medical examination without abnormal findings (principal); E78.00 Pure hypercholesterolemia, unspecified; K59.00 Constipation, unspecified; R73.02 Impaired glucose tolerance (oral); E66.3 Overweight; J45.909 Unspecified asthma, uncomplicated; N30.90 Cystitis, unspecified without hematuria; R20.0 Anesthesia of skin

== ENCOUNTER → 2024-07-01 07:45 | Outpatient (BNVA) | payer OTHER, SELFPAY | DX: Z00.00 Encounter for general adult medical examination without abnormal findings (principal); K59.00 Constipation, unspecified; E78.00 Pure hypercholesterolemia, unspecified; R73.02 Impaired glucose tolerance (oral); E66.3 Overweight; J45.909 Unspecified asthma, uncomplicated; N30.90 Cystitis, unspecified without hematuria; R20.0 Anesthesia of skin; R35.89 Other polyuria; Z78.0 Asymptomatic menopausal state | CPT/HCPCS: 96127; 99212; 99396 ==

== ENCOUNTER 2024-07-18 14:49 | Outpatient (REF) | payer OTHER, SELFPAY ==
[2024-07-18 15:20] LABS: Appearance Urine Clear; Color Urine Yellow; Glucose Urine UA Negative (Negative); Leukocyte Esterase Urine Small (1+) (Negative); Nitrite Urine Negative (Negative); UMIC TRIGGER UACC YES; Urine Blood Negative (Negative); Urine Ketones Negative (Negative); Urine Protein Negative (Neg-Trace)
[2024-07-18 15:37] LABS: Bacteria Urine None Seen (None Seen); Hyaline Casts Urine 0-2 /LPF (0-2); RBC Urine 0-2 /HPF (0-2); Squamous Epithelial Cell Urine 0-2 /HPF (0-2); UACC Culture Trigger YES; WBC Urine 0-5 /HPF (0-5)
== END 2024-07-18 14:50 | disposition home or self-care (01) ==
LOC: HO.LAB 14:49
DX: R35.89 Other polyuria (principal)
CPT/HCPCS: 81001; 87086

== ENCOUNTER → 2024-07-25 11:33 | Outpatient (BNV) | payer OTHER, SELFPAY | PROVIDERS: Visit Provider Specialist | DX: N39.0 Urinary tract infection, site not specified (principal) | CPT/HCPCS: 76775 ==

== ENCOUNTER 2024-07-25 13:52 | Outpatient (AMB) | payer OTHER, SELFPAY ==
--- NOTE | 2024-07-25 14:03 | A.OFFPC_ITS ---
Vital Signs 07/25/24 14:04 Height 5 ft 2 in Weight 150 lb 6 oz BMI 27.5 BP 112/78 Blood Pressure Location Lt brachial Position Sitting Pulse 85 Pulse Source Pulse Oximeter Temp 97.3 F Temp Source Skin Pulse Oximetry (%) 97 Oxygen Delivery Method Room Air Intake Visit Reasons: follow up Intake Note: Patient is here to follow up on Asthma and lab results Director Security Risk Management Required: No Shipwright Helper: Not Required per policy Accompanied by: Self / Same As Patient Allergies aspirin Allergy (Mild, Verified 07/25/24 14:04) Hives Tobacco use date assessed: 07/25/24 Fall risk assessment: No Falls in past year Last assessed Fall Risk: 07/25/24 Dental Screening Dental Screen Date: 07/01/24 HPI follow up HPI Details 64-year-old female with past medical his tory of impaired glucose tolerance and constipation last seen 06/2023 coming in for follow up.?In review of the notes, patient complaining of lower pelvic pain and frequent urination treated for urinary tract infection with nitrofurantoin however symptoms did persist and was treated with Bactrim and is here for follow up. skin installer Gurpreet [id number] used for the duration of this visit. In the beginning of June patient was having frequent and painful urination with suprapubic pain and low back pain. She was also having episodes of incontinence and wears sanitary pads throughout the day. Since being treated with the nitrofurantoin and bactrim she has noticed an improvement in her symptoms however she still has occasional pain with urination and suprapubic pain. She has an implanted IUD which was placed in [place] and is overdue to be removed. PFSH Family History Brother Prostate cancer Mother Colon cancer Social History Housing: Apartment Patient Tobacco Use Status: Never used Tobacco Tobacco use type: Cigarette e-Cigarette/Vaping Use: Never Used Second Hand Smoke Exposure: No service: No Cognitive needs: No Hearing needs: No Vision needs: No Questionnaire Thrive Questionnaire Date Thrive assessed: 06/25/24 I am a: Patient What is your living situation today?: I have a steady place to live Within the past 12 months, did the food you bought not last and you didn't have the money to get more?: Sometimes True Within the past 12 months, did you worry whether your food would run out before you got money to buy more?: Sometimes True Do you have trouble paying for medicines?: No Do you have trouble getting transportation to medical appointments?: No Do you have trouble paying your heating and electricity bill?: I choose not to answer this question Do you have trouble taking care of your child, family member or friend?: I choose not to answer this question Do you have trouble with day-to-day activities such as bathing, preparing meals, shopping, managing finances, etc.?: No Are you currently unemployed and looking for a job?: No Are you interested in more education?: I choose not to answer this question Please select the resources that you would like help with: Housing/[facility] Currently or been in a relationship where the following occur: No concerns reported THRIVE Score: 2 JOSE CARLOS-7 AMB Questionnaire JOSE CARLOS-7 Date JOSE CARLOS - 7 assessed: 07/01/24 Source: Developed by Drs. Wiliam Strickland, Cheri Moreno, Brandon Pruitt and colleagues, with an educational pedro from [employer]. Review of Systems Const Denies body aches, Denies chills, Denies fever(s), Denies headache(s) and Denies poor appetite Eyes Reports no additional complaints ENT Denies dizziness and Denies headache(s) Card Denies chest pain, Denies syncope, Denies edema, Denies irregular heart rhythm, Denies lightheadedness and Denies dyspnea Resp Denies cough and Denies dyspnea GI Denies abdominal pain, Denies constipation, Denies diarrhea, Denies nausea and Denies vomiting Details: pain with urination, suprapubic pain Musc Reports no additional complaints and Denies abnormal gait Skin/Breast Reports system reviewed and no additional complaints, except as documented Neuro Denies abnormal gait, Denies dizziness, Denies syncope and Denies headache(s) Psych Reports no additional complaints Physical exam (Primary Care) Vital Signs: Last Vital Signs Temp 97.3 F 07/25/24 14:04 Pulse 85 07/25/24 14:04 BP 112/78 07/25/24 14:04 Pulse Ox 97 07/25/24 14:04 Oxygen Delivery Method Room Air 07/25/24 14:04 BMI result Body Mass Index 27.5 Tobacco/Smoking Status: Tobacco use Status Tobacco use date assessed 07/25/24 07/25/24 14:08 Patient Tobacco Use Status Never used Tobacco 07/25/24 14:04 Tobacco use type Cigarette 07/25/24 14:04 e-Cigarette/Vaping Use Never Used 07/25/24 14:04 Thrive Assessment: Date of Thrive Assessment Date Thrive assessed 06/25/24 07/25/24 14:04 Currently or been in a relationship where the following occur: No concerns reported Const General: cooperative, healthy appearing, comfortable and no acute distress Orientation/consciousness: patient oriented x3 HENMT Head: Yes normocephalic Ears: hearing grossly normal bilaterally General nose exam: Normal external nose present Eyes General: appearance normal, both eyes and all related structures Conjunctivae: conjunctivae normal Neck Neck: Yes full ROM and Yes no lymphadenopathy Resp Effort & Inspection: normal respiratory effort Auscultation: clear to auscultation bilaterally, no crackles, no rales, no rhonchi and no wheezes Cardio Rate: regular rate Rhythm: regular rhythm GI Palpation (GI): Soft to palpation, not firm, nontender, no guarding and not rigid General: Yes no CVA tenderness Back/Spine/Pelvis Back: no CVA tenderness Skin General skin exam: no rashes or lesions noted Neuro General: patient oriented x3 Gait exam (Neuro): Normal gait present Extrem General: Yes normal to inspection, Yes full ROM and No edema Psych Affect: normal affect Attitude: cooperative Insight: Good insight present (Psych) Judgement: Good judgement present (Psych) Coding Level of Care Code Est Pt Level 4 (10918) Diagnoses Recurrent UTI N39.0 Urinary frequency R35.0 IUD (intrauterine device) in place Z97.5 Dysuria R30.0 Assessment & Plan Assessment & Plan (1) Recurrent UTI: Code(s): N39.0 - Urinary tract infection, site not specified Category: Medical Plan: Referral placed to urology for further evaluation as patient continues to have incontinent episodes as well as pelvic pressure. No evidence of UTI on urinalysis or culture. (2) Urinary frequency: Code(s): R35.0 - Frequency of micturition Category: Medical Plan: Patient complaining of urinary frequency feels a heaviness in her bladder. Ordered for pelvic and transvaginal ultrasound for further evaluation. Also referred to Urology (3) IUD (intrauterine device) in place: Code(s): Z97.5 - Presence of (intrauterine) contraceptive device Category: Medical Plan: Patient has a IUD in place unsure of the brand but knows it is at least several years overdue to be removed. Referral placed to gynecology (4) Dysuria: Code(s): R30.0 - Dysuria Category: Medical Plan: Patient complaining of intermittent pain with urination. Urinalysis not indicative of a urinary tract infection at this time and patient has completed 3 courses of antibiotics for his symptoms. Referral placed to Urology. Also placed orders for vaginosis panel for further evaluation Reviewed with patient red flag symptoms and when to present for re-evaluation Plan This note was constructed using voice recognition software. While every effort has been made to ensure accuracy and receptionist, still areas may have been included sometimes these areas may affect the content or meeting of the given symptoms. Total time spent caring for the patient today was twenty minutes. This includes time spent before the visit reviewing the chart, time spent during the visit, and time spent after the visit and documentation. Orders: Orders Bacterial Vaginosis Panel Today R30.0 - Dysuria US pelvic and transvaginal Today N39.0 - Urinary tract infection, site not specified, R30.0 - Dysuria, R35.0 - Frequency of micturition Referrals Urology Referral N39.0 - Urinary tract infection, site not specified, R35.0 - Frequency of micturition COMPUTER HELP DESK REPRESENTATIVE Referral Z97.5 - Presence of (intrauterine) contraceptive device
[2024-07-25 14:04] VITALS: BP 112/78; PULSE 85; TEMP 36.3; O2SAT 97; BMI 27.5
== END 2024-07-25 14:44 | disposition home or self-care (01) ==
DX: N39.0 Urinary tract infection, site not specified (principal); R35.0 Frequency of micturition; Z97.5 Presence of (intrauterine) contraceptive device; R30.0 Dysuria

== ENCOUNTER 2024-07-25 13:52 | Outpatient (REF) | payer OTHER, SELFPAY ==
[2024-07-26 15:42] LABS: Bacterial Vaginosis PCR NEGATIVE (Negative); Candida Group PCR NOT DETECTED (Not Detect); Candida glab krusei PCR NOT DETECTED (Not Detect); Trichomonas vaginalis PCR NOT DETECTED (Not Detect)
== END 2024-07-25 13:53 | disposition home or self-care (01) ==
LOC: HO.LNP 13:52
DX: R30.0 Dysuria (principal)
CPT/HCPCS: 81515

== ENCOUNTER → 2024-07-29 07:21 | Outpatient (BNV) | payer OTHER, SELFPAY | PROVIDERS: Visit Provider Radiology Diagnostic Radiology | DX: R20.0 Anesthesia of skin (principal) | CPT/HCPCS: 70450 ==

== ENCOUNTER → 2024-07-30 08:09 | Outpatient (REF) | payer OTHER, SELFPAY ==
--- NOTE | ~2024-07-30 | MM_ITS ---
EXAMINATION: DXA BONE DENSITY AXIAL HISTORY: Estrogen deficiency TECHNIQUE: Gradalis Dual energy absorptiometry (DEXA) of the lumbar spine, total left hip, and femoral neck was performed. COMPARISON: There are no prior studies for comparison. FINDINGS: The bone mineral density of the lumbar spine is 1.025 with a T-score of -1.3, and a Z-score of 0.1. The bone mineral density of the left total hip is 0.888 with a T-score of -1.0, and a Z-score of 0.1. The bone mineral density of the left femoral neck is 0.846 with a T-score of -1.4, and a Z-score of 0.0. FRACTURE RISK: The FRAX index suggests a risk of major osteoporotic fracture of 4.7%, and of hip fracture 0.4%. MM/XR DEXA axial skeleton IMPRESSION: Based on bone mineral density, and according to World Health Organization (WHO) criteria, the diagnosis is consistent with osteopenia. All bone density values are in grams per centimeter squared (g/cm2). Statistically, 68% of repeat scans fall within 1 SD (+/- 0.010 g/cm2 for AP spine L1-L4) and 1 SD (+/- 0.012 g/cm2 for femur total) FRAX is a trademark of the [employer] [place] for Metabolic Bone Disease, a World Health Organization (WHO) Collaborating Center. Electronically signed by: Wiliam Ness MD 07/31/2024 07:48 AM EST
== END | disposition home or self-care (01) ==
LOC: HO.MAMMO 08:09
DX: Z13.820 Encounter for screening for osteoporosis (principal); Z78.0 Asymptomatic menopausal state
CPT/HCPCS: 77080

== ENCOUNTER → 2024-07-30 08:17 | Outpatient (BNV) | payer OTHER, SELFPAY | PROVIDERS: Visit Provider Radiology Diagnostic Radiology | DX: E28.39 Other primary ovarian failure (principal) | CPT/HCPCS: 77085 ==

== ENCOUNTER 2024-08-08 14:23 | Outpatient (REF) | payer OTHER, SELFPAY ==
--- NOTE | ~2024-08-08 | US_ITS ---
CLINICAL HISTORY: R30.0 - Dysuria US pelvis transvaginal Comparison: None Findings: Transvaginal scanning performed. Anteverted, anteflexed uterus is 6.9 cm length. One point eight by one point six by one point five cm anterior fundal fibroid. No endometrial lesion, 2 mm thickness. IUD appears low-lying within the cervix and malrotated. Small nabothian cysts noted. Right ovary not visualized Left ovary 3.6 x 1.6 x 1.7 cm 2 x 1.3 x 1.6 cm cyst. Few small calcifications left ovary. Flow not directly assessed. No free fluid. IMPRESSION: Abnormal low-lying and malrotated IUD. Nonvisualization right ovary. Functional appearing cyst left ovary. This document has been electronically signed by: Gurpreet Smith MD on 08/12/2024 12:57:33
== END 2024-08-08 14:24 | disposition home or self-care (01) ==
LOC: HO.US 14:23
DX: R30.0 Dysuria (principal); R35.0 Frequency of micturition; N39.0 Urinary tract infection, site not specified
CPT/HCPCS: 76830; 76856

== ENCOUNTER → 2024-08-08 14:25 | Outpatient (BNV) | payer OTHER, SELFPAY | PROVIDERS: Visit Provider Radiology Diagnostic Radiology | DX: R30.0 Dysuria (principal) | CPT/HCPCS: 76830; 76856 ==

== ENCOUNTER 2024-08-27 11:39 | Emergency (ER) | payer OTHER, SELFPAY ==
--- NOTE | ~2024-08-27 | XR_ITS ---
EXAMINATION: XR CHEST CLINICAL INFORMATION: cough COMPARISON: None available. TECHNIQUE: 2 views of the chest were obtained. FINDINGS: No significant abnormality is noted involving the heart, lungs, mediastinum, bony thorax or soft tissues. XR/XR chest 2V IMPRESSION: Unremarkable chest examination.. Electronically signed by: Mir Monterroso MD 08/27/2024 12:25 PM [facility]
--- NOTE | 2024-08-27 11:57 | ED_ITS ---
HPI - URI/Sore Throat General Chief Complaint: Upper Respiratory Symptoms Stated Complaint: Bronchitis Time Seen by Provider: 08/27/24 14:21 Source: patient, RN notes reviewed and old records reviewed Mode of arrival: ambulatory History of Present Illness ED Provider: Vanita Mills PA-C HPI Narrative: 64-year-old female with a past medical history asthma, constipation, HLD, presenting to the ED complaining of dry cough, congestion, chest congestion, SOB x a few days. Reports whistling sound in lungs. Admits to using inhaler and machine at home. Denies fever, chills, travel, sick contacts, pedal edema. Related Data Home Medications ?Medication ?Instructions ?Recorded ?Confirmed albuterol sulfate 90 mcg/actuation 1 puff inhalation QID 07/01/24 07/01/24 aerosol inhaler Previous Rx's ?Medication ?Instructions ?Recorded albuterol sulfate 0.63 mg/3 mL 0.63 mg (3 mL) inhalation QID PRN 07/01/24 solution for nebulization shortness of breath or wheezing #75 mL bisacodyl 5 mg tablet,delayed 5 mg PO BEDTIME 2 days #2 tabs 07/01/24 release (Dulcolax (bisacodyl)) hydroxyzine HCl 25 mg tablet 25 mg PO BID PRN itching #30 tabs 07/01/24 sennosides 8.6 mg capsule (senna) 8.6 mg PO BEDTIME #30 caps 07/01/24 albuterol sulfate 2.5 mg/0.5 mL 5 mg inhalation Q4H PRN shortness 08/27/24 solution for nebulization of breath or wheezing #30 ea benzonatate 100 mg capsule 100 mg PO TID PRN cough #14 caps 08/27/24 prednisone 20 mg tablet 40 mg (2 x 20 mg) PO DAILY 5 days 08/27/24 #10 tabs Allergies Allergy/AdvReac Type Severity Reaction Status Date / Time aspirin Allergy Mild Hives Verified 08/27/24 12:01 Review of Systems Review of Systems: Yes all other systems are reviewed and are negative Constitutional: Constitutional: Reports as per [facility] Past Medical History Attestation statement: The following information was validated with the patient. Source: old records reviewed Family History Family History Brother Prostate cancer Mother Colon cancer Social History Social History Housing: Apartment Patient Tobacco Use Status: Never used Tobacco Tobacco use type: Cigarette e-Cigarette/Vaping Use: Never Used Second Hand Smoke Exposure: No Advance Directives: No Advance Directives Information Provided: Yes Do you have a plan to hurt others: No Plan service: No Cognitive needs: No Hearing needs: No Vision needs: No Physical Exam Vital Signs: Vital Signs: Last Vital Signs Temp 98.1 F 08/27/24 11:58 Pulse 99 08/27/24 12:49 Resp 18 08/27/24 12:49 BP 122/67 08/27/24 11:58 Pulse Ox 98 08/27/24 11:58 O2 Del Method Room Air 08/27/24 11:58 BMI result Body Mass Index 27.9 Const: General: cooperative, healthy appearing and no acute distress Orientation/consciousness: patient oriented x3 Limitations: no limitations HEENT: Head: Yes normal to inspection and Yes atraumatic Ears: hearing grossly normal bilaterally General nose exam: Normal external nose present Face and sinus: Yes normal facial exam Eyes: General: appearance normal, both eyes and all related structures EOM: EOMs intact bilaterally Neck: Neck: Yes normal visual inspection and Yes no meningeal signs Resp: Effort & Inspection: normal respiratory effort and no respiratory distress Auscultation: clear to auscultation bilaterally, no crackles, no rales, no rhonchi and no wheezes Cardio: Rate: regular rate Heart sounds: S1 normal heart sound present and S2 normal heart sound present Skin: Rashes: no rashes Wounds: no wounds Neuro: General: patient oriented x3, tone normal and no meningeal signs Cranial nerves: Yes CN's II-XII intact bilaterally Gait exam (Neuro): Normal gait present Extrem: General: Yes normal to inspection Course Course Course Narrative: This is a Rapid Medical Exam performed in triage by Vanita Mills PA-C. Full HPI, ROS and PE to be performed by primary ED provider. 64-year-old female with a past medical history of asthma, HLD, constipation, presenting to the ED c/o SOB, chest congestion x few days. PE: Talking in complete sentences. Nontoxic appearing, satting 98 on RA Plan: EKG, viral testing, CXR -1435--COVID/flu/RSV negative XR chest 2V IMPRESSION: Unremarkable chest examination. > Results discussed with patient including worrisome signs and symptoms and strict return precautions, and when to return to the emergency department. They verbalized understanding and feel safe for discharge at this time. Medications Administered Discontinued Medications Generic Name Dose Route Start Last Admin Trade Name Freq PRN Reason Stop Dose Admin Albuterol Sulfate 8 puff 08/27/24 12:43 08/27/24 12:47 Albuterol Sulfate 90 Mcg 8 Gm Inhaler INHALE 08/27/24 12:44 8 puff ONCE ONE Administration Medical Decision Making Medical Decision Making MDM Narrative: 64-year-old female with a past medical history asthma, constipation, HLD, presenting to the ED complaining of dry cough, congestion, chest congestion, SOB x a few days. 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 Concern for asthma exacerbation vs viral illness vs bronchitis vs pneumonia. Lower suspicion for ACS/PE or DVT Plan: EKG, Viral testing, CXR, ED bronch protocol Please refer to course for remaining clinical decision making, interpretation of labs/imaging results, and discussions with consultants and/or family members. Differential Diagnosis Differential Diagnoses: The differential diagnosis associated with the presentation includes As above Lab Data [facility] Lab Attestation statement: I reviewed the patient's lab results. Labs: Lab Results 08/27/24 Range/Units 12:51 Influenza Type A (PCR) NEGATIVE (Negative) Influenza Type B (PCR) NEGATIVE (Negative) RSV RNA Qual (PCR) NEGATIVE (Negative) SARS-CoV-2 RNA (RT-PCR) NEGATIVE (Negative) Independent Interpretation I performed an independent interpretation of an: EKG (EKG my interpretation: Normal sinus rhythm rate of 93. [place] interval 166. QTC 452. No previous EKGs to compare. No STEMI ) Radiology Impression Discussion of test interpretation with radiology: I have reviewed the radiologist's reading. External Record Review External record reviewed: Inpatient record, Office record, Outpatient record, Prior outpatient labs, Prior outpatient radiology, Primary care record and Outside ED record Tests considered The following testing was considered but not selected: As above Prescription Management I considered prescription management with: Pain Medication and Antibiotic Chronic Conditions Patient?s care impacted by: Other (asthma) Social Determinants Patient?s care significantly limited by Social Determinants of Health including: Other Social Determinant of Health Discharge Plan Discharge Clinical Impression: Asthma Patient Disposition: Home, Self-Care Instructions: Asthma (DC) Additional Instructions: You tested negative for COVID, flu, RSV. Your x-ray does not show pneumonia Please take prednisone as prescribed. Tessalon Perles for cough Follow-up with your doctor No antibiotics are indicated at this time Make sure you are staying hydrated. Drink plenty of fluids. Rest Alternate Tylenol and Motrin at home as needed for body aches and fever Follow-up with your doctor. If symptoms persist or worsen return to the e mergency department *If you are a child & not tolerating liquid or urinating for more than 6 hours, or fevers are uncontrolled with medications at home, return to the emergency department* Prescriptions: New prednisone 20 mg tablet 40 mg PO DAILY 5 Days Qty: 10 0RF benzonatate 100 mg capsule 100 mg PO TID PRN (Reason: cough) Qty: 14 0RF albuterol sulfate 2.5 mg/0.5 mL solution for nebulization 5 mg inhalation Q4H PRN (Reason: shortness of breath or wheezing) Qty: 30 0RF No Action hydroxyzine HCl 25 mg tablet 25 mg PO BID PRN (Reason: itching) Qty: 30 0RF albuterol sulfate 90 mcg/actuation HFA aerosol inhaler 1 puff inhalation QID albuterol sulfate 0.63 mg/3 mL solution for nebulization 0.63 mg inhalation QID PRN (Reason: shortness of breath or wheezing) Qty: 75 0RF bisacodyl [Dulcolax (bisacodyl)] 5 mg tablet,delayed release (DR/EC) 5 mg PO BEDTIME 2 Days Qty: 2 0RF senna 8.6 mg capsule 8.6 mg PO BEDTIME Qty: 30 0RF Referrals: Arlene Castro PA-C [Primary Care Provider] - 5 days Interventions: ED Discharge Assessment Last Done: 08/27/24 14:48 Print Language: Guatemalan
--- NOTE | 2024-08-27 11:57 | ECG_ITS ---
Test Reason : SOB Blood Pressure : */* mmHG Vent. Rate : 93 BPM Atrial Rate : 93 BPM P-R Int : 166 ms QRS Dur : 92 ms QT Int : 364 ms P-R-T Axes : 30 -4 -1 degrees QTcB Int : 452 ms Normal sinus rhythm Normal ECG No previous ECGs available Referred By: Vanita Mills Electronically Signed By: AMARJIT WALKER MD
[2024-08-27 11:58] VITALS: BP 122/67; PULSE 99; RESP 18; TEMP 36.7; O2SAT 98; BMI 27.9
[2024-08-27] MEDS: Albuterol Sulfate 90 MCG 8 GM INHALER 8 PUFF INHALE (12:47)
[2024-08-27 12:49] VITALS: PULSE 99; RESP 18; O2SAT 97
--- NOTE | 2024-08-27 12:49 | MHC.EDTECH ---
delay on ekg was in x ray then with respiratory nurse aware
[2024-08-27 13:33] LABS: Influenza A PCR NEGATIVE (Negative); Influenza B PCR NEGATIVE (Negative); Resp Syncy Virus RNA Qual PCR NEGATIVE (Negative); SARS COV2 PCR INHOUSE NEGATIVE (Negative)
[2024-08-27 14:48] VITALS: BP 122/67; PULSE 99; RESP 18; TEMP 36.7; O2SAT 98
== END 2024-08-27 14:48 | disposition home or self-care (01) ==
PROVIDERS: Physician Assistant; Emergency Provider Emergency Medicine
DX: J45.909 Unspecified asthma, uncomplicated (principal)
CPT/HCPCS: 0241U; 71046; 93005; 94640; 99284

== ENCOUNTER → 2024-08-27 11:57 | Outpatient (BNV) | payer OTHER, SELFPAY | PROVIDERS: Visit Provider Radiology Diagnostic Radiology | DX: R05.9 Cough, unspecified (principal) | CPT/HCPCS: 71046 ==

== ENCOUNTER → 2024-08-27 11:57 | Outpatient (BNV) | payer OTHER, SELFPAY | PROVIDERS: Emergency Provider Emergency Medicine; Visit Provider Internal Medicine Cardiovascular Disease | DX: R06.02 Shortness of breath (principal) | CPT/HCPCS: 93010 ==

== ENCOUNTER 2024-09-10 10:54 | Outpatient (REF) | payer OTHER, SELFPAY | END 2024-09-10 10:55 | disposition home or self-care (01) | LOC: HO.LNP 10:54 | PROVIDERS: Visit Provider Nurse Practitioner Family | DX: N39.0 Urinary tract infection, site not specified (principal); R35.0 Frequency of micturition; Z13.9 Encounter for screening, unspecified | CPT/HCPCS: 51798; 81003; 87086; 87088; 87186; 99202 ==

== ENCOUNTER 2024-09-10 10:54 | Outpatient (AMB) | payer OTHER, SELFPAY ==
--- NOTE | 2024-09-10 10:59 | A.OFFVIS_ITS ---
Intake Visit Reasons: recurrent UTI Intake Note: New patient presents today for initial visit for recurrent UTI Urology Medication:none Blood Thinner:none Antibiotic Allergies:none PVR: Cash Reconciliation Specialist Services: Cash Reconciliation Specialist Present Cash Reconciliation Specialist Name: [phone] Allergies aspirin Allergy (Mild, Verified 09/10/24 12:06) Hives Medication List - Last Reconciled 09/10/24 by SEAMUS Neff- albuterol sulfate 5 mg inhalation Q4H PRN albuterol sulfate 90 mcg/actuation 1 puff inhalation QID albuterol sulfate 0.63 mg (3 mL) inhalation QID PRN benzonatate 100 mg PO TID PRN bisacodyl (Dulcolax (bisacodyl)) 5 mg PO BEDTIME 2 days estradiol 0.01%(0.1mg/gram) (Estrace) 1 g vaginal 3XW 90 days hydroxyzine HCl 25 mg PO BID PRN prednisone 40 mg (2 x 20 mg) PO DAILY 5 days sennosides (senna) 8.6 mg PO BEDTIME HPI Comments Details: Nicole is a very pleasant 64-year-old Kittitian-speaking female patient of Dr. Castro. She has a past medical history of constipation and asthma. She presents to the office today as a new patient for recurrent urinary tract infections. In discussion with the patient today she reports following up with her PCP for ongoing episodes of dysuria she had been experiencing at which time she was treated multiple times for urinary tract infection and recommendations were made for urology referral for further assessment evaluation. In review of patient's chart it appears a renal ultrasound was ordered and performed. These results were reviewed with the patient today. 07/19 bilateral kidneys are normal in size and echotexture. No collecting system dilatation of either kidney. No acute findings. Urine cultures are as follows: 05/18 E coli, 07/19 E coli We discussed at length potential causes of recurrent urinary tract infections as well as further treatment options and risks and benefits of these treatment options. In office urinalysis results reviewed with the patient today 1+ leukocytes and positive nitrates. PVR 0 mL. She currently reports lower bladder pressure/discomfort, dysuria, and urinary frequency. We discussed sending urine for urine culture for further assessment evaluation and potential treatment given UTI like symptoms. When asked she does report a longstanding history of constipation. We discussed correlation of constipation with recurrent urinary tract infections. She denies hematuria, foul smelling urine, changes to urinary stream, flank pain, fever, and or chills. We discussed obtaining bladder ultrasound for further assessment evaluation. She otherwise offers no other issues or concerns at this time. Plan I will order a bladder ultrasound and initiate a urine culture to investigate any existing bacterial infection contributing to symptoms. Given the relationship between constipation and recurrent UTIs, management will focus on improving bowel regularity through continued medication, dietary adjustments, and increased fluid intake. Hormonal cream therapy is advised for menopausal support with detailed application instructions, and the patient consents to the outlined plan. Follow-up is scheduled in three months to monitor intervention outcomes and urine culture results. Patient was informed and verbally consented to the use of an ambient scribe for clinic note documentation during this visit. Discussion Notes During the consultation, I explained to the patient her symptoms align with recurrent UTIs likely exacerbated by constipation and menopausal-related factors. I proposed ordering a bladder ultrasound and conducting a urine culture to thoroughly assess her urinary issues, and discussed the significance of these investigations. Management involves addressing constipation through medication and lifestyle adaptations, supported by possible gastrointestinal referral if necessary. I advised the application of a hormonal cream to the urinary area to support vaginal and urinary health owing to menopausal hormone loss. I elaborated on the mechanism, benefits, potential outcomes, and application instructions related to this therapy. The risks and benefits of her treatment plans were thoroughly discussed with the patient, and she provided her consent. PFSH Family History Brother Prostate cancer Mother Colon cancer Social History Housing: Apartment Patient Tobacco Use Status: Never used Tobacco Tobacco use type: Cigarette e-Cigarette/Vaping Use: Never Used Second Hand Smoke Exposure: No service: No Cognitive needs: No Hearing needs: No Vision needs: No Review of Systems Const All systems reviewed & are unremarkable except as noted in HPI and below Physical Exam Const General: cooperative, healthy appearing, comfortable, no acute distress, well developed, alert and awake Orientation/consciousness: patient oriented x3 Limitations: language barrier HEENT Head: Yes normal to inspection, Yes normocephalic and Yes atraumatic Ears: hearing grossly normal bilaterally Eyes General: appearance normal, both eyes and all related structures Neck Neck: Yes normal visual inspection and Yes trachea midline Chest Chest palpation & inspection: normal inspection of the chest Resp Effort & Inspection: normal respiratory effort and able to speak in complete sentences Cardio Rate: regular rate GI Inspection: Yes normal to inspection General: Yes no CVA tenderness Back/Spine/Pelvis Back: no CVA tenderness Skin General skin exam: no rashes or lesions noted Neuro General: patient oriented x3 Extrem General: Yes normal to inspection Psych Appearance: grossly normal and well kempt Mental Status: mental status grossly normal Speech and movement: Normal speech and movement present and Clear speech present Affect: normal affect Attitude: cooperative Thought process: Normal thought process present Thought content: Normal thought content present Insight: Fair insight present (Psych) Judgement: Fair judgement present (Psych) Office Procedures Post Void Residual Post Residual Void Post Void Residual (PVR): 0 [id number]-Wfez Void Residual by ultrasound Results AMB Urinalysis, Automated UA Leukoctes 15 Manuel/uL Last Edit by Lian Alex on 09/10/24 11:36 UA Nitrite Positive Last Edit by Lian Alex on 09/10/24 11:36 UA Urobilinogen 3.5 mg/dL Last Edit by Lian Alex on 09/10/24 11:36 UA Protein 1 mg/dL Last Edit by Lian Alex on 09/10/24 11:36 UA pH 6.0 Last Edit by Lian Alex on 09/10/24 11:36 UA Blood 0 Jose J/uL Last Edit by Lian Alex on 09/10/24 11:36 UA Specific [place] 1.015 Last Edit by Lian Alex on 09/10/24 11:36 UA Ketone Negative Last Edit by Lian Alex on 09/10/24 11:36 UA Bilirubin 0 mg/dL Last Edit by Lian Alex on 09/10/24 11:36 UA Glucose 0 mg/dL Last Edit by Lian Alex on 09/10/24 11:36 Results Reviewed Results Reviewed: Laboratory Last Values Urine pH (Auto) 6.0 09/10/24 11:09 Specific [place] (Auto) 1.015 09/10/24 11:09 Urine Protein (Auto) 1 mg/dL 09/10/24 11:09 Glucose (UA)(Auto) 0 mg/dL 09/10/24 11:09 Urine Ketones (Auto) Negative 09/10/24 11:09 Urine Blood (Auto) 0 Jose J/uL 09/10/24 11:09 Urine Nitrite (Auto) Positive 09/10/24 11:09 Urine Bilirubin (Auto) 0 mg/dL 09/10/24 11:09 Urine Urobilinogen (Auto) 3.5 mg/dL 09/10/24 11:09 Leukocyte Esterase (Auto) 15 Manuel/uL 09/10/24 11:09 Date of Service: 07/25/24 Procedure(s): US renal BI Comparison: None Findings: Right kidney normal size and echotexture, 10.2 cm length. Left kidney normal size and echotexture, 10.1 cm length. No collecting system dilatation of either kidney. Normal color Doppler. IMPRESSION: 1. No acute findings. Assessment & Plan Assessment & Plan (1) Recurrent UTI: Code(s): N39.0 - Urinary tract infection, site not specified Category: Medical (2) Complicated urinary tract infection: Code(s): N39.0 - Urinary tract infection, site not specified Category: Medical Plan In office urinalysis results reviewed with the patient today; as noted above; will send for urine culture. Recent renal ultrasound results reviewed with the patient today; as noted above. We discussed at length potential causes of recurrent urinary tract infections as well as further treatment options of recurrent urinary tract infections. Will obtain bladder ultrasound for further assessment evaluation. Start Estrace cream as discussed and prescribed. Discussed UTI prevention with D mannose supplement, vitamin-C, increasing fluid intake, behavioral therapy with timed voiding, perineal hygiene and postcoital voiding, and management of constipation with stool softeners and increased fiber intake. Follow-up in 3 months with imaging and PVR; or sooner with any issues, concerns, and or questions. Orders: Orders AMB Urinalysis Automated Today Z13.9 - Encounter for screening, unspecified AMB Post Void Residual by ultrasound Today R35.0 - Frequency of micturition Urine Culture Today N39.0 - Urinary tract infection, site not specified US bladder Today N39.0 - Urinary tract infection, site not specified Medications: New estradiol 0.01%(0.1mg/gram) (Estrace) Apply a pea-sized amount to urethra daily x1 month Then apply pea-sized amount to urethra 3 times per week thereafter 1 g vaginal 3XW 90 days 42.5 grams 1RF Discontinued prednisone Discontinued Reason: Patient Completed Course 40 mg (2 x 20 mg) PO DAILY 5 days 10 tabs 0RF Patient Instructions: The patient had an opportunity to ask questions regarding the treatment plan. All questions were answered. Physical exam, labs, and imaging were discussed and reviewed in detail. As well as risks, benefits, and discussion of treatment choices. No major barriers to understanding were identified. The patient expressed understanding and agreement with the above treatment plan. The patient was made aware they should contact our office by phone for worsening of their current condition, the appearance of new symptoms, or with any questions or concerns. Compliance is encouraged with any medications and follow up testing that is ordered. It is a privilege to be allowed the opportunity to participate in? your urological care.? Again, if you have any questions or concerns If you have any questions or concerns please do not hesitate to contact me. The office is [phone]. This note is constructed using voice recognition software. While every effort has been made to ensure accuracy production recorder errors may have been included. Yours sincerely, SONI Neff Coding Level of Care Code New Pt Level 4 (19647) Diagnoses Recurrent UTI N39.0 Complicated urinary tract infection N39.0 CPT Codes Post Residual Void - PVR CPT Code: 37611-Zcrj Void Residual by ultrasound ([id number])
== END 2024-09-10 11:47 | disposition home or self-care (01) ==
LOC: HO.HUSH 10:54
PROVIDERS: Visit Provider Nurse Practitioner Family
DX: N39.0 Urinary tract infection, site not specified (principal); Z13.9 Encounter for screening, unspecified
CPT/HCPCS: 99204

== ENCOUNTER 2024-09-26 08:51 | Outpatient (AMB) | payer OTHER, SELFPAY ==
--- NOTE | 2024-09-26 08:58 | A.OFFVIS_ITS ---
Vital Signs 09/26/24 09:23 Height 5 ft 2 in Weight 152 lb BMI 27.8 BP 120/68 Intake Visit Reasons: Needs IUD Removal/Internal Referral Intake Note: last pap smear 3-4 years ago, normal history, Launch Check Out: Launch Check Out Present ([place]) Accompanied by: Self / Same As Patient Allergies aspirin Allergy (Mild, Verified 09/26/24 09:16) Hives Is last menstrual period known: No Post menopausal: Yes Patient : No HPI Comments Details: Presenting referred from PCP regarding abnormal position of IUD in utero. The patient had ParaGard IUD inserted many years ago. 08/09 pelvic ultrasound showed the following: Anteverted, anteflexed uterus is 6.9 cm length. One point eight by one point six by one point five cm anterior fundal fibroid. No endometrial lesion, 2 mm thickness. IUD appears low-lying within the cervix and malrotated. Small nabothian cysts noted. Right ovary not visualized Left ovary 3.6 x 1.6 x 1.7 cm 2 x 1.3 x 1.6 cm cyst. Few small calcifications left ovary. Flow not directly assessed. No free fluid. PFSH Family History Brother Prostate cancer Mother Colon cancer Social History Housing: Apartment Patient Tobacco Use Status: Never used Tobacco Tobacco use type: Cigarette e-Cigarette/Vaping Use: Never Used Second Hand Smoke Exposure: No Patient : No service: No Cognitive needs: No Hearing needs: No Vision needs: No Female Reproductive History Menstrual Age of Menarche: 12 control method: progestin IUCD (Mirena) Total pregnancies: 2 Full term: 2 History of abnormal pap smear: No Date of Mammogram: 04/30/24 (bi rad 1) Date of last Bone Density Screenin07/30/24 Review of Systems Const All systems reviewed & are unremarkable except as noted in HPI and below Physical Exam General: Yes no CVA tenderness External Female Exam: normal external appearance and normal appearance of the urethra Speculum Exam - Vagina: normal appearance of the vagina, normal palpation, no lesions and no masses Speculum Exam - Cervix: normal appearance of the cervix, normal palpation, no lesions, no masses, nontender and Other cervical findings present (IUD string in place) Bimanual exam- vagina & uterus: normal bimanual exam, normal palpation, uterine size normal, normal palpation, uterine shape normal, No Cervical tenderness present and non-tender Bimanual Exam- Adnexa, other: normal adnexae Back/Spine/Pelvis Back: no CVA tenderness Office Procedures IUD Insert/Removal Details Details: Counseling/Consent: After discussing with the patient the risks of the procedure including bleeding, infection, scar tissue formation, , possible injury to blood vessels or nerves, chronic arm pain, blood transfusion, and irregular unpredictable bleeding Alternative options were discussed with the patient including but not limited: Do nothing. The patient signed the consent and agreed with the plan; all questions answered. Preop dx: Requesting IUD removal Op: IUD removal Post op dx: same EBL= 10 cc Procedure: The patient was put in the dorsal lithotomy position a speculum was inserted in the vagina the IUD thread identified. Using a Rebekah clamp the thread was grasped and the IUD pulled out with no complications. The patient tolerated the procedure well and was advised to use a different method for contraception. Discharge instructions: Instructions were given to the pt to call if temp>100.4, abdominal pain heavy vaginal bleeding, n/v occur. The patient verbalized understanding and all questions answered. This note was generated with a voice recognition program. Some errors may have been overlooked during the review of this note. Sometimes these errors may affec t the content or meaning of a given sentence. [id number] Removal Procedure code (CPT) selection complete Assessment & Plan Assessment & Plan (1) Ovarian cyst: Code(s): N83.209 - Unspecified ovarian cyst, unspecified side Category: Medical Plan: Discussed with the patient the ovarian cyst by ultrasound. Discussed with the patient the Ultrasound findings, the main limitation of transvaginal ul trasonography alone as a diagnostic tool to distinguish benign from malignant masses relates to its lack of specificity and low positive predictive value for cancer. The differential diagnosis discussed with the patient includes the following but not limited to: benign and malignant gynecological and non- gynecological causes. Serum tumor marker CA 125 wnl Discussed with the patient that CA 125 is a protein associated with epithelial ovarian malignancies, but also frequently expressed at lower levels by nonmalignant tissue. Normal CA 125 levels can be found in ovarian cancer patients. Elevation of CA 125 levels may occur in nonmalignant gynecologic conditions, and in non-gynecologic cancers, It is most useful in postmenopausal women and in identifying non mucinous epithelial cancer. The CA 125 level is elevated in 80% of patients with epithelial ovarian cancer but in only 50% of patients with stage I disease. The overall sensitivity of CA 125 testing in distinguishing benign from malignant adnexal masses reportedly ranges from 61% to 90%; specificity ranges from 71% to 93%, positive predictive value ranges from 35% to 91%, and negative predictive value ranges from 67% to 90%. Discussed with the patient options of treatment , in case CA 125 is not elevated, including laparoscopy ovarian salpingo- oophorectomy vs. expectant management with repeat US in repeating pelvic US in 6 months from previous US. If the ovarian cyst is persistent larger and / or changes in Ultrasound appearance & became complex looking, or higher CA 125 will refer to gynecologic Oncology. All pros, cons, risks and benefits of each approach were discussed with the patient including but not limited to a delay in the diagnosis and treatment of ovarian cancer affecting the prognosis; The patient decided to go ahead with expectant management. Pelvic ultrasound ordered in six-months. Instructions given the patient to schedule a six-month ultrasound follow-up appointment. All questions were answered & the patient verbalized understanding and agreed with the plan (2) Malpositioned IUD: Code(s): T83.32XA - Displacement of intrauterine contraceptive device, initial encounter Category: Medical Plan: Discussed with the patient the results of the ultrasound, malpositioned IUD, recommended IUD removal. IUD removed, see procedure note Orders: Orders CA-125 Today N83.209 - Unspecified ovarian cyst, unspecified side US pelvic and transvaginal 6 Months N83.209 - Unspecified ovarian cyst, unspecified side Coding Level of Care Code New Pt Level 3 (81095) Procedure Only Diagnoses Ovarian cyst N83.209 Malpositioned IUD T83.32XA CPT Codes Details - CPT: 19828-HZQ Removal ([id number])
[2024-09-26 09:23] VITALS: BP 120/68; BMI 27.8
== END 2024-09-26 09:43 | disposition home or self-care (01) ==
LOC: HO.HWS 08:51
PROVIDERS: Visit Provider Obstetrics & Gynecology
DX: N83.202 Unspecified ovarian cyst, left side (principal); T83.32XA Displacement of intrauterine contraceptive device, initial encounter; Z30.432 Encounter for removal of intrauterine contraceptive device
CPT/HCPCS: 58301; 99203

== ENCOUNTER → 2024-09-26 08:51 | Outpatient (BNVA) | payer OTHER, SELFPAY | PROVIDERS: Visit Provider Obstetrics & Gynecology | DX: Z01.818 Encounter for other preprocedural examination (principal); Z30.432 Encounter for removal of intrauterine contraceptive device; K59.01 Slow transit constipation; N83.209 Unspecified ovarian cyst, unspecified side; T83.32XA Displacement of intrauterine contraceptive device, initial encounter; X58.XXXA Exposure to other specified factors, initial encounter | CPT/HCPCS: 58301; 99202 ==

== ENCOUNTER 2024-09-26 14:16 | Outpatient (AMB) | payer OTHER, SELFPAY ==
--- NOTE | 2024-09-26 14:21 | A.OFFVIS_ITS ---
Vital Signs 09/26/24 14:23 Height 5 ft 2 in Weight 156 lb 8.451 oz BMI 28.6 BP 100/58 L Blood Pressure Location Rt brachial Position Sitting Pulse 86 Pulse Source Pulse Oximeter Pulse Oximetry (%) 96 Oxygen Delivery Method Room Air Intake Visit Reasons: Colonoscopy screening Intake Note: NEW PATIENT for Constipation eval + colo screening. 2nd lifetime. Last over 10 years ago per PCP. Chief Complaint; Pt reports that sx are well controlled at this time, however; she does need a refill of her senna as she has run out. Chief Information Officer Required: Yes Chief Information Officer Services: Chief Information Officer Present Chief Information Officer Name: Shoaib [id number] Information Interpreted: clinical only Accompanied by: Spouse Allergies aspirin Allergy (Mild, Verified 09/26/24 14:21) Hives HPI HPI Colonoscopy screening: Details: 64 year old? female with past medical history of ovarian cyst, urinary frequency, cystitis, asthma, hypercholesteremia, constipation, diverticulosis is here today for pre colonoscopy screening.? Patient was sent to us by her PCP.? Last colonoscopy over 10 years ago.? Patient denies any gastrointestinal symptoms in the past or at present, however patient does report that she get constipated. Uses Senokot as needed. Was prescribed Dulcolax in the past. Patient denies melena, hematochezia, unintentional weight loss or ribbon like stools, however patient reports couple episodes blood in his stool in the past after being constipated. Patient's mom was diagnosed with CRC and in her 80s.? Denies history of difficulty with sedation or anesthesia in the past.? Negative for history of sleep apnea.? Denies any history of cardiac, renal, pulmonary, or hepatic disease.?? No history of infectious? diseases like hepatitis A, B, C, HIV or tuberculosis.? Patient is not on any anticoagulation PFSH Family History Brother Prostate cancer Mother Colon cancer Social History Housing: Apartment Patient Tobacco Use Status: Never used Tobacco Tobacco use type: Cigarette e-Cigarette/Vaping Use: Never Used Second Hand Smoke Exposure: No service: No Cognitive needs: No Hearing needs: No Vision needs: No Female Reproductive History Menstrual Age of Menarche: 12 Review of Systems Const Denies weight gain and Denies weight loss ENT Reports no additional complaints, Denies dysphagia and Denies odynophagia Card Reports no additional complaints Resp Reports no additional complaints GI Reports abdominal pain (Cramping, occasional), Denies belching, Denies melena, Reports bloating, Denies change in bowel habits, Reports constipation, Denies dysphagia, Denies excessive flatus, Denies dyspepsia, Denies heartburn, Denies diarrhea, Denies loose stools, Denies nausea, Denies odynophagia and Denies vomiting Musc Reports no additional complaints Neuro Reports no additional complaints Psych Reports no additional complaints Endo Reports no additional complaints Physical Exam Vital Signs: Last Vital Signs Pulse 86 09/26/24 14:23 BP 100/58 L 09/26/24 14:23 Pulse Ox 96 09/26/24 14:23 Oxygen Delivery Method Room Air 09/26/24 14:23 BMI result Body Mass Index 28.6 Const General: healthy appearing, no acute distress and well developed Nutritional Appearance: well nourished Orientation/consciousness: patient oriented x3 Resp Effort & Inspection: normal respiratory effort, able to speak in complete sentences, no tracheal deviation and symmetric chest movement Auscultation: clear to auscultation bilaterally Cardio Rate: regular rate GI Inspection: Yes normal to inspection and No distended Palpation (GI): Soft to palpation, not firm, nontender and No hepatosplenomegaly present Auscultation: normal bowel sounds General: Yes no CVA tenderness Back/Spine/Pelvis Back: no CVA tenderness Skin General skin exam: elasticity normal, turgor normal and dry skin Neuro General: patient oriented x3 Psych Appearance: grossly normal Mental Status: mental status grossly normal Assessment & Plan Assessment & Plan (1) Constipation: Code(s): K59.00 - Constipation, unspecified Category: Medical Qualifiers: Constipation type: slow transit constipation Qualified Code(s): K59.01 - Slow transit constipation (2) Screen for colon cancer: Code(s): Z12.11 - Encounter for screening for malignant neoplasm of colon Plan Patient denies any GI, cardiac or respiratory symptoms.? However patient does admit to be constipated using senna as needed. Patient will start taking Dulcolax daily. Increase fluid intake and activity to promote better bowel motility. Denies any issues with anesthesia in the past.? Denies any history of sleep apnea.? No history infectious diseases in the past or present.? Not on any anticoagulation therapy.? Family history of colon cancer, patient's mom was diagnosed with colorectal cancer. ? Patient denies melena, hematochezia, unintentional weight loss or ribbon like stools.? Discussed at length the pre- procedure,? prep, diet & medications as well as what to expect prior, during and after the procedure.?? Stressed the importance of good bowel prep.? Recommended the use of Vaseline or Calmoseptine OTC & baby wipes with bowel movements to promote comfort.? ?Patient verbalizes understanding and agrees to plan of care.? She was given the opportunity to ask questions and all questions answered.? We will see her after the procedure.? Medications: New polyethylene glycol 3350 (Miralax) As directed by gastroenterology department at [facility] 238 grams PO ONCE 238 grams 0RF Z12.11 - Encounter for screening for malignant neoplasm of colon Changed From bisacodyl (Dulcolax (bisacodyl)) 5 mg PO BEDTIME 2 days 2 tabs 0RF To bisacodyl (Dulcolax (bisacodyl)) 5 mg PO BEDTIME 180 tabs 2RF Discontinued sennosides (senna) Discontinued Reason: Doctor's Order 8.6 mg PO BEDTIME 30 caps 0RF Coding Level of Care Code New Pt Level 3 (83926) Diagnoses Slow transit constipation K59.01 Constipation type: slow transit constipation Screen for colon cancer Z12.11 Time Spent (min) 40 Comment 30 minutes spent with patient and additional 10 minutes spent reviewing her records
[2024-09-26 14:23] VITALS: BP 100/58; PULSE 86; O2SAT 96; BMI 28.6
== END 2024-09-26 15:38 | disposition home or self-care (01) ==
LOC: HO.HGI 14:17
PROVIDERS: Visit Provider Nurse Practitioner Family
DX: Z01.818 Encounter for other preprocedural examination (principal); Z12.11 Encounter for screening for malignant neoplasm of colon; K59.01 Slow transit constipation
CPT/HCPCS: 99202

== ENCOUNTER 2024-09-27 10:13 | Outpatient (REF) | payer OTHER, SELFPAY ==
[2024-09-27 11:48] LABS: Cholesterol 202 mg/dL (<200); HDL Cholesterol 51 mg/dL (>40); LDL Cholesterol Calculated 132 mg/dL (<100); Triglycerides 99 mg/dL (<150)
[2024-10-01 09:03] LABS: CA-125 11 U/mL (<35)
== END 2024-09-27 10:14 | disposition home or self-care (01) ==
LOC: HO.LAB 10:13
PROVIDERS: Referring Provider Obstetrics & Gynecology
DX: N83.209 Unspecified ovarian cyst, unspecified side (principal); E78.00 Pure hypercholesterolemia, unspecified
CPT/HCPCS: 36415; 80061; 86304

== ENCOUNTER 2024-09-29 08:43 | Outpatient (REF) | payer OTHER, SELFPAY ==
--- NOTE | ~2024-09-29 | XR_ITS ---
EXAMINATION: XR CHEST 2 VIEWS HISTORY: R09.89 - Other specified symptoms and signs involving the circulatory COMPARISON: Comparison is made with the prior examination dated 08/27/2024. FINDINGS: PA and lateral views of the chest are submitted. The lungs are expanded and clear. There is no pleural effusion, pneumothorax, or pulmonary vascular congestion. The heart is normal in size. The bones are intact. XR/XR chest 2V IMPRESSION: No acute cardiopulmonary abnormality. Electronically signed by: Wiliam Ness MD 09/30/2024 09:26 AM EDT
[2024-09-29 14:32] LABS: MANUAL DIFF FLAG NO
[2024-09-29 14:52] LABS: Basophils Absolute Auto 0.1 X10*3/uL (0.0-0.2); Eosinophils Absolute Auto 0.2 X10*3/uL (0.0-0.4); Eosinophils Percent Auto 3.1 % (0-4); Hematocrit 39.5 % (37.0-47.0); Hemoglobin 12.6 g/dl (12.0-16.0); Imm Gran Abs Auto 0.01 X10*3/uL (0.00-0.03); Imm Gran Pct Auto 0.2 % (0.0-0.4); Mean Corpuscular HGB Conc 31.9 g/dl (31.0-35.0); Mean Corpuscular Hemoglobin 25.6 pg (27.0-33.0); Mean Corpuscular Volume 80.1 fL (80.0-98.0); Mean Platelet Volume 10.5 fL (9.4-12.3); Monocytes Absolute Auto 0.5 X10*3/uL (0.1-1.2); Monocytes Percent Auto 10.2 % (2-11); Neutrophils Absolute Auto 2.5 x10*3/uL (2.0-8.3); Neutrophils Percent Auto 47.5 % (45-73); Platelet Count 226 X10*3/uL (160-400); Red Blood Count 4.93 X10*6/uL (4.20-5.50); Red Cell Distribution Width 14.5 % (11.0-16.0); White Blood Count 5.2 X10*3/uL (4.8-10.8)
[2024-09-29 14:58] LABS: Appearance Urine Clear; Color Urine Yellow; Glucose Urine UA Negative (Negative); Leukocyte Esterase Urine Moderate (2+) (Negative); Nitrite Urine Negative (Negative); PH 5.5 (5.0-9.0); UMIC TRIGGER UACC YES; Urine Blood Negative (Negative); Urine Ketones Negative (Negative); Urine Protein Negative (Neg-Trace)
[2024-09-29 15:01] LABS: Bacteria Urine None Seen (None Seen); Hyaline Casts Urine 0-2 /LPF (0-2); RBC Urine 0-2 /HPF (0-2); UACC Culture Trigger YES
[2024-09-29 15:39] LABS: B Type Natriuretic Peptide 23 pg/mL (<100)
[2024-09-29 18:56] LABS: Alanine Aminotransferase 12 U/L (0-31); Albumin Level 3.8 g/dL (3.5-5.0); Alkaline Phosphatase 65 U/L (39-117); Anion Gap 9 (12-20); Aspartate Amino Transferase 17 U/L (5-31); Bilirubin Total 0.3 mg/dL (0.0-1.0); Blood Urea Nitrogen 12 mg/dL (9-16); Calcium 9.1 mg/dL (8.4-10.2); Carbon Dioxide 26 mmol/L (22-29); Chloride 110 mmol/L (96-108); Estimated Glomerular Filt Rate > 60; Glucose Random 104 mg/dL (60-115); Potassium 3.5 mmol/L (3.3-5.1); Sodium 141 mmol/L (135-145); Total Protein 6.4 g/dL (6.5-8.0)
== END 2024-09-29 08:44 | disposition home or self-care (01) ==
LOC: HO.XRAY 08:43
DX: Z00.01 Encounter for general adult medical examination with abnormal findings (principal); N83.209 Unspecified ovarian cyst, unspecified side; J45.909 Unspecified asthma, uncomplicated; E66.3 Overweight; E78.00 Pure hypercholesterolemia, unspecified; K59.01 Slow transit constipation; R73.02 Impaired glucose tolerance (oral); K57.90 Diverticulosis of intestine, part unspecified, without perforation or abscess without bleeding; N39.0 Urinary tract infection, site not specified; M85.80 Other specified disorders of bone density and structure, unspecified site; G47.10 Hypersomnia, unspecified; R42 Dizziness and giddiness; R06.02 Shortness of breath; R09.89 Other specified symptoms and signs involving the circulatory and respiratory systems; Z01.818 Encounter for other preprocedural examination
CPT/HCPCS: 36415; 71046; 80053; 81001; 83880; 85025; 87086; 99212; 99396

== ENCOUNTER 2024-09-29 08:43 | Outpatient (AMB) | payer OTHER, SELFPAY ==
--- NOTE | 2024-09-29 08:51 | A.OFFPC_ITS ---
Vital Signs 09/29/24 08:52 Height 5 ft 2 in Weight 157 lb 8 oz BMI 28.8 BP 130/70 Blood Pressure Location Lt brachial Position Sitting Pulse 75 Pulse Source Pulse Oximeter Temp 97.1 F Temp Source Temporal Artery Scan Pulse Oximetry (%) 98 Oxygen Delivery Method Room Air Intake Visit Reasons: pe Intake Note: Patient is here today for a physical. Manager Ct Required: Yes Manager Ct Language: Secondary Market Manager Name: Adalid ([id number]) Information Interpreted: non-clinical & clinical Manager Membership: Not Required per policy Accompanied by: Self / Same As Patient Allergies aspirin Allergy (Mild, Verified 09/29/24 09:04) Hives Medication List - Last Reconciled 09/29/24 by Arlene Castro PA-C albuterol sulfate 5 mg inhalation Q4H PRN albuterol sulfate 90 mcg/actuation 1 puff inhalation QID bisacodyl (Dulcolax (bisacodyl)) 5 mg PO BEDTIME estradiol 0.01%(0.1mg/gram) (Estrace) 1 g vaginal 3XW 90 days hydroxyzine HCl 25 mg PO BID PRN polyethylene glycol 3350 (Miralax) 238 grams PO ONCE Tobacco use date assessed: 09/29/24 Fall risk assessment: No Falls in past year Last assessed Fall Risk: 09/29/24 Dental Screening Dental Screen Date: 07/01/24 HPI pe HPI Details 64-year-old female with past medical his tory of impaired glucose tolerance and constipation last seen 06/2024 coming in for annual exam. In rev iew of the notes, patient was seen by [facility] for 09/2024 colonoscopy scheduled. Patient was seen by [facility] gynecology for 09/2024 for abnormal position of IUD and ovarian mass. Plan to repeat pelvic ultrasound in 6 months to monitor cyst with appointment to follow. Patient was seen by [facility] Urology 09/10/2024 for recurrent urinary tract infection plan to obtain bladder ultrasound, started on Estrace cream and discuss UTI prevention. Patient was seen in [facility] ED 08/27/2024 for asthma exacerbation given prednisone and benzonatate. senior unix administrator Adalid ([id number]) used for the duration of this visit. Presenting with ongoing management of multiple chronic conditions: She reports asthma symptoms with noted nighttime difficulty, including high-pitched sounds and difficulty breathing. She notes shortness of breath with exertion and daily use of the albuterol inhaler. Bladder symptoms, suggestive of overactivity or other disorders, are notable, with an ultrasound scheduled for further assessment. Surveillance of a stable ovarian cyst is ongoing, with an ultrasound check scheduled in six months. Osteopenia was identified on a recent bone density test, requiring calcium and vitamin D supplementation and monitoring. Additional concerns include hair loss, requiring dermatological follow-up, and recurring dizziness episodes, warranting consideration for neurological evaluation. mammogram: 04/2024 with 1 year repeat DEXA: completes 07/2024 osteopenia pap smear: folllowing with gynecology - annual 03/2025 colonoscopy: being scheduled by GI vaccines: recommend pneumonia vax - will call to schedule, unsure of Td [facility] Surgical History No pertinent past surgical history Family History Brother Prostate cancer Mother Colon cancer Social History Housing: Apartment Patient Tobacco Use Status: Never used Tobacco Tobacco use type: Cigarette e-Cigarette/Vaping Use: Never Used Second Hand Smoke Exposure: No service: No Cognitive needs: No Hearing needs: No Vision needs: No Female Reproductive History Menstrual Age of Menarche: 12 Questionnaire Thrive Questionnaire Date Thrive assessed: 06/25/24 I am a: Patient What is your living situation today?: I have a steady place to live Within the past 12 months, did the food you bought not last and you didn't have the money to get more?: Sometimes True Within the past 12 months, did you worry whether your food would run out before you got money to buy more?: Sometimes True Do you have trouble paying for medicines?: No Do you have trouble getting transportation to medical appointments?: No Do you have trouble paying your heating and electricity bill?: I choose not to answer this question Do you have trouble taking care of your child, family member or friend?: I c hoose not to answer this question Do you have trouble with day-to-day activities such as bathing, preparing meals, shopping, managing finances, etc.?: No Are you currently unemployed and looking for a job?: No Are you interested in more education?: I choose not to answer this question Please select the resources that you would like help with: Housing/Correction Currently or been in a relationship where the following occur: No concerns reported THRIVE Score: 2 JOSE CARLOS-7 AMB Questionnaire JOSE CARLOS-7 Date JOSE CARLOS - 7 assessed: 07/01/24 Source: Developed by Drs. Wiliam Strickland, Cheri Moreno, Brandon Pruitt and colleagues, with an educational pedro from [employer]. Review of Systems Const Denies body aches, Denies fatigue, Denies fever(s), Denies frequent falls, Denies headache(s) and Denies weakness Eyes Reports no additional complaints and Denies change in vision ENT Denies dysphagia, Denies dizziness, Denies facial pain, Denies headache(s) and Denies odynophagia Card Denies chest pain, Denies syncope, Denies irregular heart rhythm, Denies leg edema, Denies lightheadedness and Denies dyspnea Resp Denies cough, Denies dyspnea and Reports wheezing GI Denies abdominal pain, Reports constipation, Denies dysphagia, Denies dyspepsia, Denies diarrhea, Denies nausea, Denies odynophagia and Denies vomiting Denies urinary frequency, Denies dysuria, Reports urinary incontinence, Denies urinary hesitancy and Reports urinary urgency Musc Denies back pain and Denies myalgias Skin/Breast Reports system reviewed and no additional complaints, except as documented Neuro Denies dizziness, Denies syncope, Denies frequent falls, Denies headache(s) and Denies weakness Psych Reports no additional complaints Endo Denies fatigue Aller/Immun Reports wheezing Physical exam (Primary Care) Vital Signs: Last Vital Signs Temp 97.1 F 09/29/24 08:52 Pulse 75 09/29/24 08:52 BP 130/70 09/29/24 08:52 Pulse Ox 98 09/29/24 08:52 Oxygen Delivery Method Room Air 09/29/24 08:52 BMI result Body Mass Index 28.8 Tobacco/Smoking Status: Tobacco use Status Tobacco use date assessed 09/29/24 09/29/24 08:59 Patient Tobacco Use Status Never used Tobacco 09/29/24 08:59 Tobacco use type Cigarette 09/29/24 08:59 e-Cigarette/Vaping Use Never Used 09/29/24 08:59 Thrive Assessment: Date of Thrive Assessment Date Thrive assessed 06/25/24 09/29/24 08:59 Currently or been in a relationship where the following occur: No concerns reported Const General: cooperative, healthy appearing, comfortable and no acute distress Orientation/consciousness: patient oriented x3 HENMT Head: Yes normocephalic Ears: hearing grossly normal bilaterally, external ears normal, TM's normal bilaterally and EAC's normal General nose exam: Normal external nose present Face and sinus: Yes normal facial exam and Yes sinuses nontender Mouth: Normal oral and palatal mucosa present and tongue normal Throat: Yes posterior oropharynx normal Eyes General: appearance normal, both eyes and all related structures Conjunctivae: conjunctivae normal Pupils: Equal, round and reactive pupils present EOM: EOMs intact bilaterally and No Nystagmus present Neck Neck: Yes normal visual inspection, Yes full ROM and Yes no lymphadenopathy Chest Chest palpation & inspection: normal inspection of the chest Resp Effort & Inspection: normal respiratory effort Auscultation: clear to auscultation bilaterally, crackles bilateral at the base, no rales, no rhonchi, no wheezes and breath sounds present Cardio Rate: regular rate Rhythm: regular rhythm Peripheral pulses: radial pulses present and dorsalis pedis present GI Inspection: Yes normal to inspection and No Abdominal wall edema Palpation (GI): Soft to palpation, not firm and nontender Auscultation: normal bowel sounds Rectal Exam - Female: deferred General: Yes no CVA tenderness Back/Spine/Pelvis Back: no CVA tenderness Skin General skin exam: no rashes or lesions noted Neuro General: patient oriented x3 Cranial nerves: Yes Equal, round and reactive pupils present, Yes Midline tongue present, Yes Ability to bilaterally elevate shoulders present and No Nystagmus present Gait exam (Neuro): Normal gait present Extrem General: Yes normal to inspection, Yes full ROM, No no pedal edema and No edema Psych Speech and movement: Normal speech and movement present Affect: normal affect Insight: Good insight present (Psych) Judgement: Good judgement present (Psych) Coding Level of Care Code Est Pt Level 3 (66289) Est Pt Prev Care 40-64y(83807) Diagnoses Malpositioned IUD T83.32XA Ovarian cyst N83.209 Asthma J45.909 Overweight (BMI 25.0-29.9) E66.3 Annual physical exam Z00.00 Hypercholesterolemia E78.00 Slow transit constipation K59.01 Constipation type: slow transit constipation Impaired glucose tolerance R73.02 Diverticulosis K57.90 Recurrent UTI N39.0 Osteopenia M85.80 Hypersomnolence G47.10 Lightheadedness R42 Shortness of breath R06.02 Lung crackles R09.89 Assessment & Plan Assessment & Plan (1) Malpositioned IUD: Code(s): T83.32XA - Displacement of intrauterine contraceptive device, initial encounter Category: Medical Plan: IUD recently removed with gynecology at last visit. (2) Ovarian cyst: Code(s): N83.209 - Unspecified ovarian cyst, unspecified side Category: Medical Plan: Currently following with [facility] gynecology advised surveillance of ovarian cyst. Ultrasound scheduled for 6 months with a appointment to follow to review results. (3) Asthma: Code(s): J45.909 - Unspecified asthma, uncomplicated Category: Medical Plan: Asthma currently uncontrolled on present medications. Plan to start on ICS twice daily for better control of asthma. Avoid triggers such as allergies. Plan to follow up in 2 months to review, advised to reach out if breathing worsens or does not improve. (4) Overweight (BMI 25.0-29.9): Code(s): E66.3 - Overweight Category: Medical Plan: Healthy diet and regular exercise is encouraged. (5) Annual physical exam: Code(s): Z00.00 - Encounter for general adult medical examination without abnormal findings Category: Medical Plan: Healthy diet and regular exercise is encouraged. Patient is up-to-date on all recommended routine screenings and vaccinations for her age. She has her colonoscopy to be scheduled with GI. Ordered for updated blood work. (6) Hypercholesterolemia: Code(s): E78.00 - Pure hypercholesterolemia, unspecified Category: Medical Plan: Avoid foods that are high in cholesterol such as red meat, fried foods, eggs and baked goods. Triglyceride goal of less than 150 and LDL goal of less than 130. Cholesterol improved on last labs. Referral placed to diet/nutrition. (7) Constipation: Code(s): K59.00 - Constipation, unspecified Category: Medical Qualifiers: Constipation type: slow transit constipation Qualified Code(s): K59.01 - Slow transit constipation Plan: Currently following with GI and has colonoscopy scheduled for later this year. Three rows of constipation: Increase water intake, increase fiber and taken exercise regularly. (8) Impaired glucose tolerance: Code(s): R73.02 - Impaired glucose tolerance (oral) Category: Medical Plan: Decrease the amount of carbohydrates such as pasta, bread, rice, and potatoes and limit the amount of sweets. Although fruits are generally healthy they should be eaten in moderation as they are still high in sugar. (9) Diverticulosis: Code(s): K57.90 - Diverticulosis of intestine, part unspecified, without perforation or abscess without bleeding Category: Medical Plan: Recently seen by GI and colonoscopy scheduled for surveillance. (10) Recurrent UTI: Code(s): N39.0 - Urinary tract infection, site not specified Category: Medical Plan: Currently following with Urology, started on Estrace cream and bladder ultrasound ordered appointment to follow imaging. (11) Osteopenia: Comment: DEXA 07/2024 Code(s): M85.80 - Other specified disorders of bone density and structure, unspecified site Category: Medical Plan: Recommend increasing dietary calcium to 1,200 mg of calcium daily and use of Vitamin D supplementation. (12) Hypersomnolence: Code(s): G47.10 - Hypersomnia, unspecified Category: Medical Plan: Plan to order for home sleep study for further evaluation. (13) Lightheadedness: Code(s): R42 - Dizziness and giddiness Category: Medical Plan: Patient complaining of intermittent dizziness and lightheadedness. Blood work reviewed with patient no evidence of underlying cause planned to refer to Neurology for further evaluation (14) Shortness of breath: Code(s): R06.02 - Shortness of breath Category: Medical Plan: Patient complaining of shortness of breath on exertion likely related to her uncontrolled asthma. Her given chronicity planned order for exercise stress test for further evaluation. (15) Lung crackles: Code(s): R09.89 - Other specified symptoms and signs involving the circulatory and respiratory systems Category: Medical Plan: Patient having long crackling bilaterally on exam today. Ordered for chest x- ray as well as blood work for further evaluation. No signs of fluid overload and no evidence of heart disease at this time. Plan A multifaceted strategy was undertaken to address the patient's chronic conditions including asthma, osteopenia, hyperlipidemia, and preventative health needs. Asthma management was revised to include a steroid inhaler in conjunction with albuterol as needed, reflecting the need for improved symptom control. The osteopenia will continue to be managed with appropriate supplementation and lifestyle adjustments, supported by ongoing dietary modifications. For her bladder concerns, earlier scheduling of an ultrasound is encouraged to expedite assessment. The introduction of fiber supplements and dietary review by a clinical pharmacy specialist will contribute to improved gastrointestinal health. Neurological and sleep evaluations are arranged to investigate dizziness further. The possibility of pneumonia vaccination was broached, especially with the history of asthma, complementing her current care. This note was constructed using voice recognition software. While every effort has been made to ensure accuracy and medical transcription radiology, still areas may have been included sometimes these areas may affect the content or meeting of the given symptoms. Total time spent caring for the patient today was 30 minutes. This includes time spent before the visit reviewing the chart, time spent during the visit, and time spent after the visit and documentation. Patient was informed and verbally consented to the use of an ambient scribe for clinic note documentation during this visit. Orders: Orders Comprehensive Met. Panel Today Z01.818 - Encounter for other preprocedural examination Complete Blood Count Auto Diff Today Z01.818 - Encounter for other preprocedural examination XR chest 2V Today R09.89 - Other specified symptoms and signs involving the circulatory and respiratory systems RT home sleep study Today G47.10 - Hypersomnia, unspecified B Type Natriuretic Peptide Today R06.02 - Shortness of breath CA stress test Today R06.02 - Shortness of breath UA CC w/rflx Micro + Cult Today R35.89 - Other polyuria Referrals Armature Repairer Nutrition Referral E78.00 - Pure hypercholesterolemia, unspecified, R73.02 - Impaired glucose tolerance (oral) Neurology Referral R42 - Dizziness and giddiness Medications: New beclomethasone dipropionate 40 mcg/actuation (Qvar RediHaler) 1 inh inhalation BID 10.6 grams 1RF cholecalciferol (vitamin D3) 25 mcg PO DAILY 90 caps 3RF
[2024-09-29 08:52] VITALS: BP 130/70; PULSE 75; TEMP 36.2; O2SAT 98; BMI 28.8
== END 2024-09-29 09:56 | disposition home or self-care (01) ==
LOC: HO.HMCH 08:44
DX: Z00.00 Encounter for general adult medical examination without abnormal findings (principal); J45.909 Unspecified asthma, uncomplicated; T83.32XA Displacement of intrauterine contraceptive device, initial encounter; N83.209 Unspecified ovarian cyst, unspecified side; E66.3 Overweight; E78.00 Pure hypercholesterolemia, unspecified; K59.01 Slow transit constipation; R73.02 Impaired glucose tolerance (oral); K57.90 Diverticulosis of intestine, part unspecified, without perforation or abscess without bleeding; N39.0 Urinary tract infection, site not specified; M85.80 Other specified disorders of bone density and structure, unspecified site; G47.10 Hypersomnia, unspecified

== ENCOUNTER → 2024-09-29 14:13 | Outpatient (BNV) | payer OTHER, SELFPAY | PROVIDERS: Visit Provider Radiology Diagnostic Radiology | DX: R09.89 Other specified symptoms and signs involving the circulatory and respiratory systems (principal) | CPT/HCPCS: 71046 ==

== ENCOUNTER 2024-10-21 09:51 | Outpatient (AMB) | payer OTHER, SELFPAY ==
--- NOTE | 2024-10-21 10:06 | A.OFFPC_ITS ---
Vital Signs 10/21/24 10:07 Height 5 ft 2 in Weight 155 lb BMI 28.3 BP 120/70 Blood Pressure Location Lt brachial Position Sitting Pulse 86 Pulse Source Pulse Oximeter Temp 97.5 F Temp Source Temporal Artery Scan Pulse Oximetry (%) 95 Oxygen Delivery Method Room Air Intake Visit Reasons: Eye surgery Intake Note: Patient is here for a Pre-op for Catract surgery scheduled with [facility] (Dr Olivo) on 10/24/24, 11/07/24. Horticultural Nursery Assistant Required: Yes Horticultural Nursery Assistant Language: English Information Interpreted: non-clinical & clinical Licensed Esthetician: Not Required per policy Accompanied by: Self / Same As Patient Allergies aspirin Allergy (Mild, Verified 10/21/24 10:25) Hives Medication List - Last Reconciled 10/21/24 by Arlene Castro PA-C albuterol sulfate 5 mg inhalation Q4H PRN albuterol sulfate 90 mcg/actuation 1 puff inhalation QID bisacodyl (Dulcolax (bisacodyl)) 5 mg PO BEDTIME budesonide 90 mcg/actuation (Pulmicort Flexhaler) 1 inh inhalation BID cholecalciferol (vitamin D3) 25 mcg PO DAILY estradiol 0.01%(0.1mg/gram) (Estrace) 1 g vaginal 3XW 90 days hydroxyzine HCl 25 mg PO BID PRN polyethylene glycol 3350 (Miralax) 238 grams PO ONCE Tobacco use date assessed: 10/21/24 Fall risk assessment: No Falls in past year Last assessed Fall Risk: 10/21/24 Dental Screening Dental Screen Date: 07/01/24 HPI Eye surgery HPI Details 64-year-old female with past medical his tory of impaired glucose tolerance and constipation last seen 09/2024 coming in for preoperative exam. Patient having bilateral cataract surgery with [facility] (R 10/24/24 and L 11/07/2024). Patient has had lasik in the past without complication or infection, no other history of surgeries. Patient has no history of diabetes mellitus, PR, CHF or CVA. EKG completed 08/27/2024: Normal sinus rhythm Blood work completed 09/2024: Within normal limits radiographer cardiac catheterization Louie [id number] used for the duration of this visit. Patient tells us she continues to use her albuterol inhaler daily. She does feel of the asthma is better controlled and denies any nighttime awakenings. She did have a recent flare 1.5 months ago requiring steroids. She has been using her has been inhalers appropriately. [facility] Surgical History No pertinent past surgical history Family History Brother Prostate cancer Mother Colon cancer Social History Housing: Apartment Patient Tobacco Use Status: Never used Tobacco Tobacco use type: Cigarette e-Cigarette/Vaping Use: Never Used Second Hand Smoke Exposure: No service: No Cognitive needs: No Hearing needs: No Vision needs: No Female Reproductive History Menstrual Age of Menarche: 12 Questionnaire Thrive Questionnaire Date Thrive assessed: 06/25/24 I am a: Patient What is your living situation today?: I have a steady place to live Within the past 12 months, did the food you bought not last and you didn't have the money to get more?: Sometimes True Within the past 12 months, did you worry whether your food would run out before you got money to buy more?: Sometimes True Do you have trouble paying for medicines?: No Do you have trouble getting transportation to medical appointments?: No Do you have trouble paying your heating and electricity bill?: I choose not to answer this question Do you have trouble taking care of your child, family member or friend?: I choose not to answer this question Do you have trouble with day-to-day activities such as bathing, preparing meals, shopping, managing finances, etc.?: No Are you currently unemployed and looking for a job?: No Are you interested in more education?: I choose not to answer this question Please select the resources that you would like help with: Housing/Detention Currently or been in a relationship where the following occur: No concerns reported THRIVE Score: 2 JOSE CARLOS-7 AMB Questionnaire JOSE CARLOS-7 Date JOSE CARLOS - 7 assessed: 07/01/24 Source: Developed by Drs. Wiliam Strickland, Cheri Moreno, Brandon Pruitt and colleagues, with an educational pedro from [email or web address]. Review of Systems Const Denies body aches, Denies chills, Denies fever(s), Denies headache(s) and Denies poor appetite Eyes Reports no additional complaints ENT Denies dysphagia, Denies dizziness, Denies headache(s) and Denies odynophagia Card Denies chest pain, Denies syncope, Denies edema, Denies irregular heart rhythm, Denies lightheadedness and Denies dyspnea Resp Denies cough and Denies dyspnea GI Denies abdominal pain, Denies constipation, Denies dysphagia, Denies diarrhea, Denies nausea, Denies odynophagia and Denies vomiting Reports no additional complaints Musc Reports no additional complaints and Denies abnormal gait Skin/Breast Reports system reviewed and no additional complaints, except as documented Neuro Denies abnormal gait, Denies dizziness, Denies syncope and Denies headache(s) Psych Reports no additional complaints Physical exam (Primary Care) Vital Signs: Last Vital Signs Temp 97.5 F 10/21/24 10:07 Pulse 86 10/21/24 10:07 BP 120/70 10/21/24 10:07 Pulse Ox 95 10/21/24 10:07 Oxygen Delivery Method Room Air 10/21/24 10:07 BMI result Body Mass Index 28.3 Tobacco/Smoking Status: Tobacco use Status Tobacco use date assessed 10/21/24 10/21/24 10:12 Patient Tobacco Use Status Never used Tobacco 10/21/24 10:12 Tobacco use type Cigarette 10/21/24 10:12 e-Cigarette/Vaping Use Never Used 10/21/24 10:12 Thrive Assessment: Date of Thrive Assessment Date Thrive assessed 06/25/24 10/21/24 10:12 Currently or been in a relationship where the following occur: No concerns reported Const General: cooperative, healthy appearing, comfortable and no acute distress Orientation/consciousness: patient oriented x3 HENMT Head: Yes normocephalic Ears: hearing grossly normal bilaterally General nose exam: Normal external nose present Eyes General: appearance normal, both eyes and all related structures Conjunctivae: conjunctivae normal Neck Neck: Yes full ROM and Yes no lymphadenopathy Resp Effort & Inspection: normal respiratory effort Auscultation: clear to auscultation bilaterally, crackles bilateral (Unchanged since last visit) in the lower lung [place], no rales, no rhonchi and no wheezes Cardio Rate: regular rate Rhythm: regular rhythm Skin General skin exam: no rashes or lesions noted Neuro General: patient oriented x3 Gait exam (Neuro): Normal gait present Extrem General: Yes normal to inspection, Yes full ROM and No edema Psych Affect: normal affect Attitude: cooperative Insight: Good insight present (Psych) Judgement: Good judgement present (Psych) Coding Level of Care Code Est Pt Level 3 (56401) Diagnoses Pre-op exam Z01.818 Asthma J45.909 Assessment & Plan Assessment & Plan (1) Pre-op exam: Code(s): Z01.818 - Encounter for other preprocedural examination Category: Medical Plan: Regarding preop clearance, the patient is at low-moderate risk for proposed surgery due to age however patient does have lack of comorbidities contributing to her risk. Reviewed with the patient that no surgery is completely free of risk and that this examination is to assist the surgeon in reviewing informed consent. Advised patient she may take all medications as prescribed up until the day of the procedure. Avoid the use of NSAIDs 1 week prior to the procedure. EKG, chest x-ray and blood work evaluated. No further workup needed at this time and may proceed with the contemplated procedure. Thank you very much for letting me participate in the care of this patient (2) Asthma: Code(s): J45.909 - Unspecified asthma, uncomplicated Category: Medical Plan: Asthma currently controlled on present medications. Continue on Pulmicort twice daily with new increased dose and albuterol as needed.?Avoid triggers such as allergies. Reminded patient of appropriate use of inhalers. Patient also had recent chest x-ray which was normal. Patient does have very mild crackles in bilateral lung bases unchanged since last visit. Blood work and chest x-ray were reviewed and no explanation for crackling, patient is clinically euvolemic at this time. Plan This note was constructed using voice recognition software. While every effort has been made to ensure accuracy and manager sourcing, still areas may have been included sometimes these areas may affect the content or meeting of the given symptoms. Total time spent caring for the patient today was 30 minutes. This includes time spent before the visit reviewing the chart, time spent during the visit, and time spent after the visit and documentation. Patient was informed and verbally consented to the use of an ambient scribe for clinic note documentation during this visit. Medications: New budesonide 180 mcg/actuation (Pulmicort Flexhaler) 1 inh inhalation BID 1 ea 1RF Discontinued hydroxyzine HCl Discontinued Reason: Patient no longer taking 25 mg PO BID PRN 30 tabs 0RF itching budesonide 90 mcg/actuation (Pulmicort Flexhaler) Discontinued Reason: No Longer Medically Relevant 1 inh inhalation BID 1 ea 1RF
[2024-10-21 10:07] VITALS: BP 120/70; PULSE 86; TEMP 36.4; O2SAT 95; BMI 28.3
== END 2024-10-21 10:46 | disposition home or self-care (01) ==
LOC: HO.HMCH 09:52
DX: Z01.818 Encounter for other preprocedural examination (principal); J45.909 Unspecified asthma, uncomplicated

== ENCOUNTER → 2024-10-21 09:51 | Outpatient (BNVA) | payer OTHER, SELFPAY | DX: Z01.818 Encounter for other preprocedural examination (principal); J45.909 Unspecified asthma, uncomplicated | CPT/HCPCS: 99212 ==

== ENCOUNTER 2024-10-23 13:08 | Outpatient (AMB) | payer OTHER, SELFPAY ==
--- NOTE | 2024-10-23 13:42 | A.OFFVIS_ITS ---
VS Expanded 10/23/24 13:44 10/23/24 13:50 Height 5 ft 2 in 5 ft 2 in Weight 154 lb 1.65 oz 154 lb BMI 28.2 28.2 Intake Visit Reasons: Impaired glucose tolerance (oral) Allergies aspirin Allergy (Mild, Verified 10/21/24 10:25) Hives Nutrition Presentation Details: Pt presents for MNT for IFG, high cholesterol Pt has multiple nutrition questions, reports working on reducing on portions and fats and including more vegetables/fiber rich foods BS Monitoring Most Recent Diabetes Results: Cholesterol 202 mg/dL (<200) H 09/27/24 HDL Cholesterol 51 mg/dL (>40) 09/27/24 Triglycerides 99 mg/dL (<150) 09/27/24 Creatinine 0.76 mg/dL (0.5-1.4) 09/29/24 Blood Urea Nitrogen 12 mg/dL (9-16) 09/29/24 Sodium 141 mmol/L (135-145) 09/29/24 Potassium 3.5 mmol/L (3.3-5.1) 09/29/24 Chloride 110 mmol/L (96-108) H 09/29/24 Carbon Dioxide 26 mmol/L (22-29) 09/29/24 Calcium 9.1 mg/dL (8.4-10.2) 09/29/24 AST 17 U/L (5-31) 09/29/24 ALT 12 U/L (0-31) 09/29/24 Total Protein 6.4 g/dL (6.5-8.0) L 09/29/24 Albumin 3.8 g/dL (3.5-5.0) 09/29/24 LNG-Vycgtix-Bq.Jeor Equation Height: 5 ft 2 in Weight: 154 lb Resting Metabolic Rate: 1206.20 Calculated Activity Level: Mild Activity Calories Needed to Maintain Weight: 1658.53 Diagnosis Nutrition problem #1: food nutri know defi As related to (etiology) #1: diagnosis As evidenced by (sign/symptom) #1: knowledge deficit of diet [facility] Surgical History No pertinent past surgical history Family History Brother Prostate cancer Mother Colon cancer Social History Housing: Apartment Patient Tobacco Use Status: Never used Tobacco Tobacco use type: Cigarette e-Cigarette/Vaping Use: Never Used Second Hand Smoke Exposure: No service: No Cognitive needs: No Hearing needs: No Vision needs: No Female Reproductive History Menstrual Age of Menarche: 12 Assessment & Plan Assessment & Plan (1) Impaired glucose tolerance: Code(s): R73.02 - Impaired glucose tolerance (oral) Category: Medical Plan: Wt: 70 Kg ( 11/16 ) Est kcal needs as per MSJ: 1700 (40% carb, 30% protein/fat) Est fluid needs as per 25-30 ml/d: 2100 Est prot per day as per 1 g/kg bw: 70 Recommend fiber intake : 8-10 g per day and gradually increase to 25-28 g per day for women and 35-38 g for men or as tolerated Recommend sodium intake per day : less than 2000 mg Educated patient on: ( R = reviewed V = verbalizes understanding N/R = needs review N/A = not applicable * Food sources of carbohydrate, adequate serving sizes and its role in various health conditions: R * Differences between complex carbohydrates a simple carbohydrates, role of fiber in diet: R * Lean protein sources of foods: R * Differences between types of fats and role in diet (mono on saturated fat fatty acids, saturated fatty acids, trans fats): R V N/R * Food sources of sodium in salt and healthy modifications for heart health in kidney health: R V R/V * Vitamins and minerals: R V N/R * Healthy plate method concept: R * Physical activity: Benefits a precaution: R V N/R * Hypoglycemia protocol (rule of 15): R V N/R * Dietary prevention of Hyperglycemia: R Patient Instructions: Follow healthy plate method, reducing total carb to 60 g at meal Include lean protein foods keep hydrated Coding Level of Care Code Nutr Indiv Intake (77804) Diagnoses Impaired glucose tolerance R73.02 Time Spent (min) 30
[2024-10-23 13:44] VITALS: BMI 28.2
[2024-10-23 13:50] VITALS: BMI 28.2
== END 2024-10-23 14:36 | disposition home or self-care (01) ==
LOC: HO.ENCR 13:08
PROVIDERS: Visit Provider Dietitian, Registered
DX: R73.02 Impaired glucose tolerance (oral) (principal)

== ENCOUNTER → 2024-10-23 13:08 | Outpatient (BNVA) | payer OTHER, SELFPAY | PROVIDERS: Visit Provider Dietitian, Registered | DX: R73.02 Impaired glucose tolerance (oral) (principal) | CPT/HCPCS: 97802 ==

== ENCOUNTER 2024-12-09 13:04 | Outpatient (REF) | payer OTHER, SELFPAY ==
--- NOTE | ~2024-12-09 | US_ITS ---
CLINICAL HISTORY: N39.0 - Urinary tract infection, site not specified US Urinary Bladder Comparison: None Findings: The urinary bladder is unremarkable. Prevoid volume: 157 mL Postvoid volume: 103 mL Ureteral jets are not visualized bilaterally. IMPRESSION: Postvoid urinary retention of the bladder. This document has been electronically signed by: Damion Diaz MD on 12/09/2024 14:31:29
== END 2024-12-09 13:05 | disposition home or self-care (01) ==
LOC: HO.US 13:04
PROVIDERS: Visit Provider Nurse Practitioner Family
DX: N39.0 Urinary tract infection, site not specified (principal)
CPT/HCPCS: 76857

== ENCOUNTER → 2024-12-09 13:06 | Outpatient (BNV) | payer OTHER, SELFPAY | PROVIDERS: Visit Provider Nuclear Medicine | DX: R33.9 Retention of urine, unspecified (principal) | CPT/HCPCS: 76857 ==

== ENCOUNTER 2024-12-11 11:20 | Outpatient (AMB) | payer OTHER, SELFPAY ==
--- NOTE | 2024-12-11 11:22 | MHC.OFFVIS ---
Intake Visit Reasons: 3m/US Intake Note: patient presents today for follow up visit for recurrent UTI Urology Medication:estrace Blood Thinner:none Antibiotic Allergies:none PVR:101 ml's Filler Shaker Services: Filler Shaker Present Filler Shaker Name: Frank Busby Allergies aspirin Allergy (Mild, Verified 12/11/24 11:37) Hives Medication List - Last Reconciled 12/11/24 by SEAMUS Neff- albuterol sulfate 5 mg inhalation Q4H PRN albuterol sulfate 90 mcg/actuation 1 puff inhalation QID bisacodyl (Dulcolax (bisacodyl)) 5 mg PO BEDTIME budesonide 180 mcg/actuation (Pulmicort Flexhaler) 1 inh inhalation BID cetirizine (Allergy Relief (cetirizine)) 10 mg PO DAILY cholecalciferol (vitamin D3) 25 mcg PO DAILY estradiol 0.01%(0.1mg/gram) (Estrace) 1 g vaginal 3XW 90 days polyethylene glycol 3350 (Miralax) 238 grams PO ONCE HPI Comments Details: Nicole is a very pleasant 64-year-old Mongolian-speaking female patient of Dr. Castro. She has a past medical history of constipation and asthma. She presents to the office today for follow-up of her recurrent urinary tract infections. In discussion with the patient today she reports having completed antibiotic therapy however continues to feel lower urinary tract symptoms. She reports she continues with bladder pressure and dysuria. She also reports having followed up with senior product analyst and having had IUD removal and has since been experiencing these UTI like symptoms. She also reports noncompliance with Estrace cream. She reports noting over the last few weeks she has also been noting a bulge to her vagina. On exam today stage I pelvic ovarian prolapse was noted. We did discuss further interventions and risks and benefits of these interventions. In office urinalysis results noted 2+ leukocytes positive nitrates otherwise within normal limits. Recent bladder ultrasound results were reviewed with the patient today 12/17 the urinary bladder is unremarkable. PVR 101 mL. We did discussed at length potential causes of recurrent urinary tract infections, incomplete bladder emptying, and pelvic organ prolapse. We discussed further treatment options of these urological conditions and risks and benefits of these treatment options. Patient was fitted for size 3 supported pessary. We discussed proper care and hygiene of pessary. All questions were answered. Will send urine today for microgen for further assessment evaluation. Patient with previous renal imaging 07/19 noting bilateral kidneys are normal in size and echotexture. No collecting system dilatation of either kidney. No acute findings. Urine cultures are as follows: 05/18 E coli, 07/19 E coli, 09/16 ecoli, 10/17 no growth She does report a longstanding history of constipation. We discussed correlation of constipation with recurrent urinary tract infections. She denies hematuria, foul smelling urine, changes to urinary stream, flank pain, fever, and or chills. She otherwise offers no other issues or concerns at this time. [facility] Surgical History No pertinent past surgical history Family History Brother Prostate cancer Mother Colon cancer Social History Housing: Apartment Patient Tobacco Use Status: Never used Tobacco Tobacco use type: Cigarette e-Cigarette/Vaping Use: Never Used Second Hand Smoke Exposure: No service: No Cognitive needs: No Hearing needs: No Vision needs: No Female Reproductive History Menstrual Age of Menarche: 12 Review of Systems Const All systems reviewed & are unremarkable except as noted in HPI and below Physical Exam Const General: cooperative, healthy appearing, comfortable, no acute distress, well developed, alert and awake Orientation/consciousness: patient oriented x3 Limitations: language barrier HEENT Head: Yes normal to inspection, Yes normocephalic and Yes atraumatic Ears: hearing grossly normal bilaterally Eyes General: appearance normal, both eyes and all related structures Neck Neck: Yes normal visual inspection and Yes trachea midline Chest Chest palpation & inspection: normal inspection of the chest Resp Effort & Inspection: normal respiratory effort and able to speak in complete sentences Cardio Rate: regular rate GI Inspection: Yes normal to inspection General: Yes no CVA tenderness Back/Spine/Pelvis Back: no CVA tenderness Skin General skin exam: no rashes or lesions noted Neuro General: patient oriented x3 Extrem General: Yes normal to inspection Psych Appearance: grossly normal and well kempt Mental Status: mental status grossly normal Speech and movement: Normal speech and movement present and Clear speech present Affect: normal affect Attitude: cooperative Thought process: Normal thought process present Thought content: Normal thought content present Insight: Fair insight present (Psych) Judgement: Fair judgement present (Psych) Office Procedures Post Void Residual Post Residual Void Post Void Residual (PVR): 101 [id number] Void Residual by ultrasound Results AMB Urinalysis, Automated UA Leukoctes 125 Manuel/uL Last Edit by Angelic Pete, [place] on 12/11/24 11:53 [facility] Nitrite [facility] [place] [facility] 11:53 UA Urobilinogen 3.5 mg/dL Last Edit by [facility] on 12/11/24 11:53 UA Protein 0 mg/dL Last Edit by [facility] on 12/11/24 11:53 UA pH 6.0 Last Edit by [facility] on 12/11/24 11:53 UA Blood 0 Jose J/uL [facility] [place] [facility] 12/11/24 11:53 UA Specific [place] 1.015 [facility] [place] [facility] 12/11/24 11:53 UA Ketone Negative Last Edit by [facility] on 12/11/24 11:53 UA Bilirubin 0 mg/dL Last Edit by [facility] on 12/11/24 11:53 UA Glucose 0 mg/dL [facility] [place] [facility] 12/11/24 11:53 Results Reviewed Results Reviewed: Laboratory Last Values Urine pH (Auto) 6.0 12/11/24 11:41 Specific [place] (Auto) 1.015 12/11/24 11:41 Urine Protein (Auto) 0 mg/dL 12/11/24 11:41 Glucose (UA)(Auto) 0 mg/dL 12/11/24 11:41 Urine Ketones (Auto) Negative 12/11/24 11:41 Urine Blood (Auto) 0 Jose J/uL 12/11/24 11:41 Urine Nitrite (Auto) Positive 12/11/24 11:41 Urine Bilirubin (Auto) 0 mg/dL 12/11/24 11:41 Urine Urobilinogen (Auto) 3.5 mg/dL 12/11/24 11:41 Leukocyte Esterase (Auto) 125 Manuel/uL 12/11/24 11:41 Date of Service: 12/09/24 Procedure(s): US bladder Findings: The urinary bladder is unremarkable. Prevoid volume: 157 mL Postvoid volume: 103 mL Ureteral jets are not visualized bilaterally. IMPRESSION: Postvoid urinary retention of the bladder. Assessment & Plan Assessment & Plan (1) Recurrent UTI: Code(s): N39.0 - Urinary tract infection, site not specified Category: Medical (2) Pelvic organ prolapse quantification stage 1 cystocele: Code(s): N81.10 - Cystocele, unspecified Category: Medical Plan In office urinalysis results reviewed with the patient today; as noted above; will send for microgen PVR 101ml's On exam today stage I POP; we did discuss further treatment options and risks and benefits of these treatment options Pessary size 3 with support was inserted; we did discuss proper care of pessary at length. Will refer to urogynecology as requested by patient. We discussed at length potential causes of p.o. P as well as recurrent urinary tract infections. Start Macrobid as discussed and prescribed Continue Estrace cream as discussed and prescribed Follow-up in 3-6 months with PVR; or sooner with any issues, concerns, and or questions. Orders: Orders AMB Urinalysis Automated 12/11/24 Z13.9 - Encounter for screening, unspecified AMB Post Void Residual by ultrasound 12/11/24 N39.0 - Urinary tract infection, site not specified Referrals Urogynecology Referral N81.10 - Cystocele, unspecified Medications: New nitrofurantoin macrocrystal must administer with a meal/food 100 mg PO BID 28 caps 0RF 14 days N39.0 - Urinary tract infection, site not specified Patient Instructions: The patient had an opportunity to ask questions regarding the treatment plan. All questions were answered. Physical exam, labs, and imaging were discussed and reviewed in detail. As well as risks, benefits, and discussion of treatment choices. No major barriers to understanding were identified. The patient expressed understanding and agreement with the above treatment plan. The patient was made aware they should contact our office by phone for worsening of their current condition, the appearance of new symptoms, or with any questions or concerns. Compliance is encouraged with any medications and follow up testing that is ordered. It is a privilege to be allowed the opportunity to participate in? your urological care.? Again, if you have any questions or concerns If you have any questions or concerns please do not hesitate to contact me. The office is [phone]. This note is constructed using voice recognition software. While every effort has been made to ensure accuracy tube wrapper errors may have been included. Yours sincerely, SONI Neff Coding Level of Care Code Est Pt Level 4 (60953) Complex EM visit Add On G2211 Diagnoses Recurrent UTI N39.0 Pelvic organ prolapse quantification stage 1 cystocele N81.10 CPT Codes Post Residual Void - PVR CPT Code: 37770-Zpen Void Residual by ultrasound ([id number]) Time Spent (min) 45
== END 2024-12-11 12:13 | disposition home or self-care (01) ==
PROVIDERS: Visit Provider Nurse Practitioner Family
DX: N39.0 Urinary tract infection, site not specified (principal); N81.10 Cystocele, unspecified
CPT/HCPCS: 99214; G2211

== ENCOUNTER → 2024-12-11 11:20 | Outpatient (BNVA) | payer OTHER, SELFPAY | PROVIDERS: Visit Provider Nurse Practitioner Family | DX: N39.0 Urinary tract infection, site not specified (principal); N81.10 Cystocele, unspecified | CPT/HCPCS: 51798; 81003; 99212 ==

== ENCOUNTER → 2024-12-16 11:21 | Outpatient (REF) | payer OTHER, SELFPAY | LOC: HO.SL 11:21 | DX: G47.10 Hypersomnia, unspecified (principal) | CPT/HCPCS: 95806 ==

== ENCOUNTER → 2024-12-16 11:32 | Outpatient (BNV) | payer OTHER, SELFPAY | PROVIDERS: Visit Provider Internal Medicine | DX: G47.33 Obstructive sleep apnea (adult) (pediatric) (principal) | CPT/HCPCS: 95806 ==

== ENCOUNTER 2024-12-16 14:31 | Outpatient (AMB) | payer OTHER, SELFPAY ==
[2024-12-16 14:47] VITALS: BMI 27.7
--- NOTE | 2024-12-16 14:47 | A.OFFVIS_ITS ---
VS Expanded 12/16/24 14:47 Height 5 ft 2 in Weight 151 lb 10.2 oz BMI 27.7 Intake Visit Reasons: IFG Allergies aspirin Allergy (Mild, Verified 12/29/24 12:56) [facility] Nutrition Presentation Details: Pt presents for MNT f/u for IFG Pt reports feeling well, working on diet modifications, reducing on sugars and high fat foods Reports having inc appetite in evening Pt reports increasing on physical activity as able, tries to keep physically active daily PFSH Medical History (Updated 12/29/24 @ 13:06 by Venita Mckenzie CNP) Borderline diabetes mellitus Tension headache Surgical History History of eye surgery No pertinent past surgical history Family History Brother Prostate cancer Mother Colon cancer Social History Housing: Apartment Patient Tobacco Use Status: Never used Tobacco Tobacco use type: Cigarette e-Cigarette/Vaping Use: Never Used Second Hand Smoke Exposure: No service: No Cognitive needs: No Hearing needs: No Vision needs: No Female Reproductive History Menstrual Age of Menarche: 12 Assessment & Plan Assessment & Plan (1) Impaired glucose tolerance: Code(s): R73.02 - Impaired glucose tolerance (oral) Category: Medical Plan: Wt: 70 Kg ( 11/16 ), 69 (12/17) Est kcal needs as per MSJ: 1700 (40% carb, 30% protein/fat) Est fluid needs as per 25-30 ml/d: 2100 Est prot per day as per 1 g/kg bw: 70 Recommend fiber intake : 8-10 g per day and gradually increase to 25-28 g per day for women and 35-38 g for men or as tolerated Recommend sodium intake per day : less than 2000 mg Educated patient on: ( R = reviewed V = verbalizes understanding N/R = needs review N/A = not applicable * Food sources of carbohydrate, adequate serving sizes and its role in various health conditions: R,V * Differences between complex carbohydrates a simple carbohydrates, role of fiber in diet: R ,v * Lean protein sources of foods: R * Differences between types of fats and role in diet (mono on saturated fat fatty acids, saturated fatty acids, trans fats): R * Food sources of sodium in salt and healthy modifications for heart health in kidney health: R V R/V * Vitamins and minerals: R * Healthy plate method concept: R * Physical activity: Benefits a precaution: R * Hypoglycemia protocol (rule of 15): R V N/R * Dietary prevention of Hyperglycemia: R Medications: Discontinued nitrofurantoin macrocrystal must administer with a meal/food Discontinued Reason: No Longer Medically Relevant 100 mg PO BID 14 days 28 caps 0RF N39.0 - Urinary tract infection, site not specified Patient Instructions: Choose foods with less than 20 g carb and 8-20 g prot as snack : example yogurt - see list of options Coding Level of Care Code Nutr Indiv Subseq (13408) Diagnoses Impaired glucose tolerance R73.02 Time Spent (min) 30
== END 2024-12-16 15:16 | disposition home or self-care (01) ==
LOC: HO.ENCR 14:32
PROVIDERS: Visit Provider Dietitian, Registered
DX: R73.02 Impaired glucose tolerance (oral) (principal)

== ENCOUNTER 2024-12-19 10:03 | Outpatient (AMB) | payer OTHER, SELFPAY ==
--- NOTE | 2024-12-19 10:17 | MHC.PC.OV ---
Vital Signs 12/19/24 10:18 Height 5 ft 2 in Weight 152 lb 2 oz BMI 27.8 BP 120/70 Blood Pressure Location Lt brachial Position Sitting Pulse 68 Pulse Source Pulse Oximeter Temp 97.1 F Temp Source Temporal Artery Scan Pulse Oximetry (%) 98 Oxygen Delivery Method Room Air Intake Visit Reasons: 2 month f/u Intake Note: Patient is here to follow up on Hypercholesterolemia, Asthma. Social Work Program Coordinator Required: No Solvent Process Extractor Operator: Not Required per policy Accompanied by: Self / Same As Patient Allergies aspirin Allergy (Mild, Verified 12/19/24 10:42) Hives Medication List - Last Reconciled 12/19/24 by Arlene Castro PA-C albuterol sulfate 5 mg inhalation Q4H PRN albuterol sulfate 90 mcg/actuation 1 puff inhalation QID bisacodyl (Dulcolax (bisacodyl)) 5 mg PO BEDTIME budesonide 180 mcg/actuation (Pulmicort Flexhaler) 1 inh inhalation BID cetirizine (Allergy Relief (cetirizine)) 10 mg PO DAILY cholecalciferol (vitamin D3) 25 mcg PO DAILY estradiol 0.01%(0.1mg/gram) (Estrace) 1 g vaginal 3XW 90 days fosfomycin tromethamine 3 grams PO Q3D 9 days polyethylene glycol 3350 (Miralax) 238 grams PO ONCE Tobacco use date assessed: 12/19/24 Fall risk assessment: No Falls in past year Last assessed Fall Risk: 12/19/24 Dental Screening Dental Screen Date: 07/01/24 HPI 2 month f/u HPI Details 64-year-old female with past medical history of impaired glucose tolerance and constipation last seen 09/2024 coming in for follow up.? In review of the notes, patient was seen by Urology 11/2024 for pessary placement and referral was placed to Urogynecology. facilities flight check pilot was used for the duration of this visit Lauren [id number] Presenting for a follow-up on asthma management and hyperlipidemia. Improvement noted with increased Pulmicort dosage; no recent use of albuterol inhaler and absence of nocturnal symptoms. Environmental changes in [place] may have contributed to symptom relief due to different allergen exposure. LDL cholesterol decreased to 132 mg/dL; lifestyle modifications advised as cardiovascular risk remains low at 4%. [facility] Surgical History History of eye surgery No pertinent past surgical history Family History Brother Prostate cancer Mother Colon cancer Social History Housing: Apartment Patient Tobacco Use Status: Never used Tobacco Tobacco use type: Cigarette e-Cigarette/Vaping Use: Never Used Second Hand Smoke Exposure: No service: No Cognitive needs: No Hearing needs: No Vision needs: No Female Reproductive History Menstrual Age of Menarche: 12 Questionnaire Thrive Questionnaire Date Thrive assessed: 06/25/24 I am a: Patient What is your living situation today?: I have a steady place to live Within the past 12 months, did the food you bought not last and you didn't have the money to get more?: Sometimes True Within the past 12 months, did you worry whether your food would run out before you got money to buy more?: Sometimes True Do you have trouble paying for medicines?: No Do you have trouble getting transportation to medical appointments?: No Do you have trouble paying your heating and electricity bill?: I choose not to answer this question Do you have trouble taking care of your child, family member or friend?: I choose not to answer this question Do you have trouble with day-to-day activities such as bathing, preparing meals, shopping, managing finances, etc.?: No Are you currently unemployed and looking for a job?: No Are you interested in more education?: I choose not to answer this question Please select the resources that you would like help with: Housing/Group Home Currently or been in a relationship where the following occur: No concerns reported THRIVE Score: 2 JOSE CARLOS-7 AMB Questionnaire JOSE CARLOS-7 Date JOSE CARLOS - 7 assessed: 07/01/24 Source: Developed by Drs. Wiliam Strickland, Cheri Moreno, Brandon Pruitt and colleagues, with an educational pedro from [employer]. Review of Systems Const Denies body aches, Denies chills, Denies fever(s), Denies headache(s) and Denies poor appetite Eyes Reports no additional complaints ENT Denies dysphagia, Denies dizziness, Denies headache(s) and Denies odynophagia Card Denies chest pain, Denies syncope, Denies edema, Denies irregular heart rhythm, Denies lightheadedness and Denies dyspnea Resp Denies cough and Denies dyspnea GI Denies abdominal pain, Denies constipation, Denies dysphagia, Denies diarrhea, Denies nausea, Denies odynophagia and Denies vomiting Reports no additional complaints Musc Reports no additional complaints and Denies abnormal gait Skin/Breast Reports system reviewed and no additional complaints, except as documented Neuro Denies abnormal gait, Denies dizziness, Denies syncope and Denies headache(s) Psych Reports no additional complaints Physical exam (Primary Care) Vital Signs: Last Vital Signs Temp 97.1 F 12/19/24 10:18 Pulse 68 12/19/24 10:18 BP 120/70 12/19/24 10:18 Pulse Ox 98 12/19/24 10:18 Oxygen Delivery Method Room Air 12/19/24 10:18 BMI result Body Mass Index 27.8 Tobacco/Smoking Status: Tobacco use Status Tobacco use date assessed 12/19/24 12/19/24 10:27 Patient Tobacco Use Status Never used Tobacco 12/19/24 10:27 Tobacco use type Cigarette 12/19/24 10:27 e-Cigarette/Vaping Use Never Used 12/19/24 10:27 Thrive Assessment: Date of Thrive Assessment Date Thrive assessed 06/25/24 12/19/24 10:27 Currently or been in a relationship where the following occur: No concerns reported Const General: cooperative, healthy appearing, comfortable and no acute distress Orientation/consciousness: patient oriented x3 HENMT Head: Yes normocephalic Ears: hearing grossly normal bilaterally General nose exam: Normal external nose present Eyes General: appearance normal, both eyes and all related structures Conjunctivae: conjunctivae normal Neck Neck: Yes full ROM and Yes no lymphadenopathy Resp Effort & Inspection: normal respiratory effort Auscultation: clear to auscultation bilaterally, no crackles, no rales, no rhonchi and no wheezes Cardio Rate: regular rate Rhythm: regular rhythm Skin General skin exam: no rashes or lesions noted Neuro General: patient oriented x3 Gait exam (Neuro): Normal gait present Extrem General: Yes normal to inspection, Yes full ROM and No edema Psych Affect: normal affect Attitude: cooperative Insight: Good insight present (Psych) Judgement: Good judgement present (Psych) Coding Level of Care Code Est Pt Level 3 (31602) Diagnoses Mild intermittent asthma without complication J45.20 Asthma severity: mild Asthma persistence: intermittent Asthma complication type: uncomplicated Hypercholesterolemia E78.00 Impaired glucose tolerance R73.02 Overweight (BMI 25.0-29.9) E66.3 Pelvic organ prolapse quantification stage 1 cystocele N81.10 Assessment & Plan Assessment & Plan (1) Asthma: Code(s): J45.909 - Unspecified asthma, uncomplicated Category: Medical Qualifiers: Asthma severity: mild Asthma persistence: intermittent Asthma complication type: uncomplicated Qualified Code(s): J45.20 - Mild intermittent asthma, uncomplicated Plan: Asthma currently controlled on present medications. Continue on pulmicort BID and albuterol prn.? Avoid triggers such as allergies. (2) Hypercholesterolemia: Comment: 11/2024 ASCVD risk 4.6% not recommending statin Code(s): E78.00 - Pure hypercholesterolemia, unspecified Category: Medical Plan: Avoid foods that are high in cholesterol such as red meat, fried foods, eggs and baked goods. Triglyceride goal of less than 150 and LDL goal of less than 130. (3) Impaired glucose tolerance: Code(s): R73.02 - Impaired glucose tolerance (oral) Category: Medical Plan: Decrease the amount of carbohydrates such as pasta, bread, rice, and potatoes and limit the amount of sweets. Although fruits are generally healthy they should be eaten in moderation as they are still high in sugar. (4) Overweight (BMI 25.0-29.9): Code(s): E66.3 - Overweight Category: Medical Plan: Healthy diet and regular exercise is encouraged. (5) Pelvic organ prolapse quantification stage 1 cystocele: Code(s): N81.10 - Cystocele, unspecified Category: Medical Plan: Patient is currently following with urology and referral was placed to urogynecology at her last visit with their office. Plan The patient's asthma management will continue with the current Pulmicort dosage, as it has resulted in symptom improvement and reduced reliance on the albuterol inhaler. The patient is advised to maintain lifestyle modifications, focusing on diet and exercise, to manage her cholesterol levels, as her cardiovascular risk remains low at 4%. Regular follow-up appointments are recommended to monitor asthma control and cholesterol levels. This note was constructed using voice recognition software. While every effort has been made to ensure accuracy and edge bonder, still areas may have been included sometimes these areas may affect the content or meeting of the given symptoms. Total time spent caring for the patient today was 30 minutes. This includes time spent before the visit reviewing the chart, time spent during the visit, and time spent after the visit and documentation. Patient was informed and verbally consented to the use of an ambient scribe for clinic note documentation during this visit. Orders: Orders Lipid Panel Today E78.00 - Pure hypercholesterolemia, unspecified
[2024-12-19 10:18] VITALS: BP 120/70; PULSE 68; TEMP 36.2; O2SAT 98; BMI 27.8
== END 2024-12-19 10:55 | disposition home or self-care (01) ==
LOC: HO.HMCH 10:03
DX: J45.20 Mild intermittent asthma, uncomplicated (principal); E78.00 Pure hypercholesterolemia, unspecified; R73.02 Impaired glucose tolerance (oral); E66.3 Overweight; N81.10 Cystocele, unspecified

== ENCOUNTER → 2024-12-19 10:03 | Outpatient (BNVA) | payer OTHER, SELFPAY | DX: J45.20 Mild intermittent asthma, uncomplicated (principal); E78.00 Pure hypercholesterolemia, unspecified; R73.02 Impaired glucose tolerance (oral); E66.3 Overweight; N81.10 Cystocele, unspecified; Z68.27 Body mass index [BMI] 27.0-27.9, adult | CPT/HCPCS: 99212 ==

== ENCOUNTER 2024-12-29 12:45 | Outpatient (AMB) | payer OTHER, SELFPAY ==
--- NOTE | 2024-12-29 12:49 | MHC.OFFVIS ---
Vital Signs 12/29/24 12:50 Height 5 ft 2 in Intake Visit Reasons: 4 weeks Manager Of Employee Relations Required: Yes Manager Of Employee Relations Name: [place] #[id number] Allergies aspirin Allergy (Mild, Verified 12/29/24 12:56) Hives Medication List - Last Reconciled 12/29/24 by Venita Mckenzie CNP albuterol sulfate 5 mg inhalation Q4H PRN albuterol sulfate 90 mcg/actuation 1 puff inhalation QID bisacodyl (Dulcolax (bisacodyl)) 5 mg PO BEDTIME budesonide 180 mcg/actuation (Pulmicort Flexhaler) 1 inh inhalation BID cetirizine (Allergy Relief (cetirizine)) 10 mg PO DAILY cholecalciferol (vitamin D3) 25 mcg PO DAILY estradiol 0.01%(0.1mg/gram) (Estrace) 1 g vaginal 3XW 90 days fosfomycin tromethamine 3 grams PO Q3D 9 days meclizine 25 mg PO BEDTIME melatonin 5 mg PO BEDTIME PRN polyethylene glycol 3350 (Miralax) 238 grams PO ONCE HPI Comments Details: 64-year-old Georgian speaking woman with asthma and borderline diabetes, who is a vague historian. She has episodes of numbness to the lower part of the face, possibly the right side, but was not completely sure since 2022, however most recent episode on the left. It feels funny, and she touches and taps it until it goes away in about 10 minutes. It does not affect the whole affect and does not spread to arm or leg. There is no associated headache or visual disturbance with it. She has had a total of 7 episodes in the last 2 years. Additionally, she gets a few seconds of sharp scalp pains where she has to grab her head and then pain is gone. If she bends down to pick something up, and then stands, she may get momentary vertigo. On a few occasions, she has had a high-pitched tinnitus in the right ear. ?She had a CAT scan of the head on 07/29/24, which was negative with age-related changes. She was taking meclizine 25mg at bedtime. She did not notice any improvement with medication and medication made her drowsy. Momentary vertigo when changing positions was still happening at times. She had one episode of numbness to the left side of face last week. It was mostly to left cheek area. She had trouble describing sensation. She would touch and tap area, and it resolved in about 10 minutes or so. There was no associated headache or visual disturbance. No paresthesia elsewhere. She was not sure how often this occurred. She denied any recent sharp scalp pains. Sleep was okay. [facility] Medical History (Updated 12/29/24 @ 13:06 by Venita Mckenzie CNP) Borderline diabetes mellitus Tension headache Surgical History History of eye surgery No pertinent past surgical history Family History Brother Prostate cancer Mother Colon cancer Social History Housing: Apartment Patient Tobacco Use Status: Never used Tobacco Tobacco use type: Cigarette e-Cigarette/Vaping Use: Never Used Second Hand Smoke Exposure: No service: No Cognitive needs: No Hearing needs: No Vision needs: No Female Reproductive History Menstrual Age of Menarche: 12 Review of Systems Const Denies chills, Denies daytime sleepiness, Denies difficulty sleeping, Denies fatigue, Denies fever(s), Denies frequent falls, Denies headache(s), Denies increased appetite, Denies poor appetite, Denies snoring, Denies weakness, Denies weight gain and Denies weight loss Eyes Denies loss of vision ENT Reports dizziness, Denies headache(s) and Denies neck pain Card Denies chest pain at rest, Denies chest pain with activity, Denies syncope, Denies leg edema, Denies palpitations, Denies dyspnea and Denies dyspnea on exertion Resp Denies cough, Denies dyspnea, Denies dyspnea on exertion and Denies snoring GI Denies abdominal pain, Denies constipation, Denies heartburn, Denies diarrhea and Denies nausea Denies urinary frequency, Denies urinary incontinence and Denies urinary urgency Musc Denies abnormal gait, Denies back pain, Denies myalgias, Denies arthralgias, Denies neck pain, Reports numbness, Denies stiffness and Denies tingling Neuro Denies abnormal gait, Reports dizziness, Denies syncope, Denies frequent falls, Denies headache(s), Denies lack of coordination, Denies loss of vision, Denies memory loss, Reports numbness, Denies Other visual disturbances, Denies restless legs, Denies seizure-like activity, Denies tingling, Reports paresthesias, Denies tremor(s) and Denies weakness Psych Denies anxiety, Denies depression, Denies memory loss, Denies visual hallucinations and Denies hallucinations Endo Denies fatigue and Denies palpitations Physical Exam Const Other: General Appearance:? normal, in no acute distress. Heart:? S1, S2 normal, no murmurs. Lungs:? clear anteriorly and posteriorly. Musculoskeletal:? normal. Extremities:? no edema. Psych:? alert, oriented, cognitive function intact, cooperative with exam. Neuro Other: Abnormal Neurological Findings:?none.? Mental Status: alert and oriented X 3. Normal attention, orientation, memory, and affect. Cranial Nerves: Pupils are equal, round, and reactive to light. External ocular muscles are intact. Visual francisco are full, no ptosis. Face is symmetrical, no facial weakness or droop. Facial sensations are normal. Tongue protrudes in midline. Palate elevates symmetrically. Shoulder shrugging is normal Motor Examination: Normal muscle tone, bulk and strength. No atrophy or fasciculations. No drift of the extended upper extremities. DTR 2+. Plantars are flexor. Straight Leg Raisin degrees. Sensory Exam: Normal light touch, temperature, pinprick, vibration, and joint-position sensations. Rhomberg sign is absent. Coordination: No ataxia. No titubation. [id number], autg-psmq-[id number] test, and rapid alternating movements were normal. Gait Exam: Within normal limits. Cerebellar Signs: [id number] and [id number] is normal. No dysdiadochokinesia. Extrapyramidal System: No tremor, rigidity with normal facial expressions. No bradykinesia. No bradyphrenia. Normal arm swing and posture. No propulsion or retropulsion. Speech: Normal. No dysphasia or dysarthria. Assessment & Plan Assessment & Plan (1) Tension headache: Code(s): G44.209 - Tension-type headache, unspecified, not intractable Category: Medical Plan: Start amitriptyline 10mg once a day at bedtime, use/side effects reviewed. (2) Dizziness: Code(s): R42 - Dizziness and giddiness Category: Medical Plan: May use meclizine 25mg as needed Plan . Medications: New amitriptyline 10 mg PO BEDTIME 30 tabs 1RF 30 days Coding Level of Care Code Est Pt Level 4 (26472) Diagnoses Tension headache G44.209 Dizziness R42
== END 2024-12-29 13:14 | disposition home or self-care (01) ==
LOC: HO.HSM 12:46
PROVIDERS: Visit Provider Registered Nurse
DX: G44.209 Tension-type headache, unspecified, not intractable (principal); R42 Dizziness and giddiness
CPT/HCPCS: 99214

== ENCOUNTER → 2024-12-29 12:45 | Outpatient (BNVA) | payer OTHER, SELFPAY | PROVIDERS: Visit Provider Registered Nurse | DX: G44.209 Tension-type headache, unspecified, not intractable (principal); R42 Dizziness and giddiness | CPT/HCPCS: 99212 ==

== ENCOUNTER 2025-02-09 12:56 | Outpatient (AMB) | payer OTHER, SELFPAY ==
--- NOTE | 2025-02-09 12:58 | MHC.OFFVIS ---
Vital Signs 02/09/25 13:08 02/09/25 13:17 02/09/25 13:17 Height 5 ft 2 in BP 109/71 104/71 Position Sitting Standing Pulse 84 90 Intake Visit Reasons: 6 Weeks for FIELDS Duct Installer Required: Yes Duct Installer Name: #[id number] Allergies aspirin Allergy (Mild, Verified 12/29/24 12:56) Hives Medication List - Last Reconciled 02/09/25 by Venita Mckenzie, KUSUM albuterol sulfate 5 mg inhalation Q4H PRN albuterol sulfate 90 mcg/actuation 1 puff inhalation QID amitriptyline 10 mg PO BEDTIME 30 days bisacodyl (Dulcolax (bisacodyl)) 5 mg PO BEDTIME budesonide 180 mcg/actuation (Pulmicort Flexhaler) 1 inh inhalation BID cetirizine (Allergy Relief (cetirizine)) 10 mg PO DAILY cholecalciferol (vitamin D3) 25 mcg PO DAILY estradiol 0.01%(0.1mg/gram) (Estrace) 1 g vaginal 3XW 90 days fosfomycin tromethamine 3 grams PO Q3D 9 days meclizine 25 mg PO BEDTIME melatonin 5 mg PO BEDTIME PRN polyethylene glycol 3350 (Miralax) 238 grams PO ONCE HPI Comments Details: 64-year-old Greek speaking woman with asthma and borderline diabetes, who is a vague historian. She has episodes of numbness to the lower part of the face, possibly the right side, but was not completely sure since 2022, however most recent episode on the left. It feels funny, and she touches and taps it until it goes away in about 10 minutes. It does not affect the whole head and does not spread to arm or leg. There is no associated headache or visual disturbance with it. She has had a total of 7 episodes in the last 2 years. Additionally, she gets a few seconds of sharp scalp pains where she has to grab her head and then pain is gone. If she bends down to pick something up, and then stands, she may get momentary vertigo. On a few occasions, she has had a high-pitched tinnitus in the right ear. ?She had a CAT scan of the head on 07/29/24, which was negative with age-related changes. She was doing okay. She was taking amitriptyline at bedtime. Episodes of facial numbness were better, no recent episodes. No recent sharp, scalp pains. No medication side effects. She was still having some momentary vertigo when changing positions. No falls. Sleep was okay. [facility] Medical History (Updated 12/29/24 @ 13:06 by Venita Mckenzie CNP) Borderline diabetes mellitus Tension headache Surgical History History of eye surgery No pertinent past surgical history Family History Brother Prostate cancer Mother Colon cancer Social History Housing: Apartment Patient Tobacco Use Status: Never used Tobacco Tobacco use type: Cigarette e-Cigarette/Vaping Use: Never Used Second Hand Smoke Exposure: No service: No Cognitive needs: No Hearing needs: No Vision needs: No Female Reproductive History Menstrual Age of Menarche: 12 Review of Systems Const Denies chills, Denies daytime sleepiness, Denies difficulty sleeping, Denies fatigue, Denies fever(s), Denies frequent falls, Denies headache(s), Denies increased appetite, Denies poor appetite, Denies snoring, Denies weakness, Denies weight gain and Denies weight loss Eyes Denies loss of vision ENT Reports dizziness, Denies headache(s) and Denies neck pain Card Denies chest pain at rest, Denies chest pain with activity, Denies syncope, Denies leg edema, Denies palpitations, Denies dyspnea and Denies dyspnea on exertion Resp Denies cough, Denies dyspnea, Denies dyspnea on exertion and Denies snoring GI Denies abdominal pain, Denies constipation, Denies heartburn, Denies diarrhea and Denies nausea Denies urinary frequency, Denies urinary incontinence and Denies urinary urgency Musc Denies abnormal gait, Denies back pain, Denies myalgias, Denies arthralgias, Denies neck pain, Reports numbness, Denies stiffness and Denies tingling Neuro Denies abnormal gait, Reports dizziness, Denies syncope, Denies frequent falls, Denies headache(s), Denies lack of coordination, Denies loss of vision, Denies memory loss, Reports numbness, Denies Other visual disturbances, Denies restless legs, Denies seizure-like activity, Denies tingling, Reports paresthesias, Denies tremor(s) and Denies weakness Psych Denies anxiety, Denies depression, Denies memory loss, Denies visual hallucinations and Denies hallucinations Endo Denies fatigue and Denies palpitations Physical Exam Const Other: General Appearance:? normal, in no acute distress. Heart:? S1, S2 normal, no murmurs. Lungs:? clear anteriorly and posteriorly. Musculoskeletal:? normal. Extremities:? no edema. Psych:? alert, oriented, cognitive function intact, cooperative with exam. Neuro Other: Abnormal Neurological Findings:?none.? Mental Status: alert and oriented X 3. Normal attention, orientation, memory, and affect. Cranial Nerves: Pupils are equal, round, and reactive to light. External ocular muscles are intact. Visual francisco are full, no ptosis. Face is symmetrical, no facial weakness or droop. Facial sensations are normal. Tongue protrudes in midline. Palate elevates symmetrically. Shoulder shrugging is normal Motor Examination: Normal muscle tone, bulk and strength. No atrophy or fasciculations. No drift of the extended upper extremities. DTR 2+. Plantars are flexor. Straight Leg Raisin degrees. Sensory Exam: Normal light touch, temperature, pinprick, vibration, and joint-position sensations. Rhomberg sign is absent. Coordination: No ataxia. No titubation. Ovcvxx-jy-kabc, sbne-ozta-ruhz test, and rapid alternating movements were normal. Gait Exam: Within normal limits. Cerebellar Signs: Ylbxvn-[id number]-[id number] and ebta-cz-lxgs is normal. No dysdiadochokinesia. Extrapyramidal System: No tremor, rigidity with normal facial expressions. No bradykinesia. No bradyphrenia. Normal arm swing and posture. No propulsion or retropulsion. Speech: Normal. No dysphasia or dysarthria. Assessment & Plan Assessment & Plan (1) Tension headache: Code(s): G44.209 - Tension-type headache, unspecified, not intractable Category: Medical Plan: Continue amitriptyline 10mg 1 tablet at bedtime. (2) Dizziness: Code(s): R42 - Dizziness and giddiness Category: Medical Plan: May use meclizine 25mg as needed. Change positions slowly, stay hydrated. Plan . Medications: Changed From amitriptyline 10 mg PO BEDTIME 30 days 30 tabs 1RF To amitriptyline 10 mg PO BEDTIME 90 tabs 1RF 90 days Coding Level of Care Code Est Pt Level 4 (67834) Diagnoses Tension headache G44.209 Dizziness R42
[2025-02-09 13:17] VITALS: BP 104/71; BP 109/71; PULSE 84; PULSE 90
== END 2025-02-09 13:26 | disposition home or self-care (01) ==
LOC: HO.HSM 12:57
PROVIDERS: Visit Provider Registered Nurse
DX: G44.209 Tension-type headache, unspecified, not intractable (principal); R42 Dizziness and giddiness
CPT/HCPCS: 99214

== ENCOUNTER → 2025-02-09 12:56 | Outpatient (BNVA) | payer OTHER, SELFPAY | PROVIDERS: Visit Provider Registered Nurse | DX: G44.209 Tension-type headache, unspecified, not intractable (principal); R42 Dizziness and giddiness; Z79.899 Other long term (current) drug therapy | CPT/HCPCS: 99212 ==

== ENCOUNTER 2025-02-11 13:54 | Emergency (ER) | payer OTHER, SELFPAY ==
[2025-02-11 14:57] VITALS: BP 119/65; PULSE 99; RESP 18; TEMP 36.7; O2SAT 98; BMI 28.3
--- NOTE | 2025-02-11 15:00 | ED_ITS ---
HPI - General Adult General Chief complaint: GI Bleed Stated complaint: blood in stool Time Seen by Provider: 02/11/25 21:02 Source: patient Limitations: language barrier History of Present Illness ED Provider: Fozia Hernandez PA-C HPI narrative: 64-year-old female with a history of hyperlipidemia, constipation, diverticulosis, ovarian cysts, who presents with rectal bleeding since earlier today. Patient states she was straining to have a bowel movement, she noted bright red blood in the toilet,and on her leg. Patient had an isolated episode. Denies abdominal pain, nausea vomiting, fever. Related Data Home Medications ?Medication ?Instructions ?Recorded ?Confirmed albuterol sulfate 90 mcg/actuation 1 puff inhalation Q ID 07/01/24 12/29/24 aerosol inhaler meclizine 25 mg tablet 25 mg PO BEDTIME 12/26/24 melatonin 5 mg tablet 5 mg PO BEDTIME PRN 12/26/24 12/29/24 Previous Rx's ?Medication ?Instructions ?Recorded albuterol sulfate 2.5 mg/0.5 mL 5 mg inhalation Q4H IA N shortness 08/27/24 solution for nebulization of breath or wheezing #30 ea estradiol 0.01% (0.1 mg/gram) 1 g vaginal 3XW 90 days #42.5 grams 09/10/24 vaginal cream (Estrace) bisacodyl 5 mg tablet,delayed 5 mg PO BEDTIME #180 tab s 09/26/24 release (Dulcolax (bisacodyl)) polyethylene glycol 3350 17 238 g PO ONCE #238 grams 0 09/26/24 gram/dose oral powder (Miralax) cholecalciferol (vitamin D3) 25 25 mcg PO DAILY #90 ca ps 09/29/24 mcg (1,000 unit) capsule budesonide 180 mcg/actuation 1 inh inhalation BID #1 e a 10/21/24 breath activated powder inhaler (Pulmicort Flexhaler) cetirizine 10 mg tablet (Allergy 10 mg PO DAILY #90 ta bs 11/05/24 Relief (cetirizine)) fosfomycin tromethamine 3 gram 3 g PO Q3D 9 days #3 ea 12/17/24 oral packet amitriptyline 10 mg tablet 10 mg PO BEDTIME 90 days #9 0 tabs 02/09/25 Allergies Allergy/AdvReac Type Severity Reaction Status Date / Time aspirin Allergy Mild Hives Verified 02/11/25 15:01 Review of Systems 2 Review of Systems: Yes all other systems are reviewed and are negative Constitutional: Constitutional: Denies fatigue and Denies fever(s) Cardiovascular: Cardiovascular: Denies chest pain and Denies dyspnea Respiratory: Respiratory: Denies dyspnea Gastrointestinal: Gastrointestinal: Denies abdominal pain, Reports hematochezia, Reports constipation, Denies nausea and Denies vomiting Endocrine: Endocrine: Denies fatigue [facility] Past Medical History Attestation statement: The following information was validated with the patient. Medical History (Updated 02/25/25 @ 11:43 by Myrna Ingram RN) Osteopenia Asthma Elevated cholesterol Borderline diabetes mellitus Tension headache Surgical History History of eye surgery No pertinent past surgical history Family History Family History Brother Prostate cancer Mother Colon cancer Social History Social History Housing: Apartment Patient Tobacco Use Status: Never used Tobacco Tobacco use type: Cigarette e-Cigarette/Vaping Use: Never Used Second Hand Smoke Exposure: No service: No Cognitive needs: No Hearing needs: No Vision needs: No Physical Exam ED Vital Signs: Vital Signs - 24 hr 02/11/25 14:57 02/11/25 20:08 Temperature 98.1 F 98.3 F Pulse Rate 99 86 Respiratory Rate 18 18 Blood Pressure 119/65 137/90 H Pulse Oximetry 98 96 Oxygen Delivery Method Room Air Room Air BMI result Body Mass Index 28.3 Const Other: Alert well-appearing Orientation/consciousness: patient oriented x3 Resp Effort & Inspection: normal respiratory effort Cardio Other: Normal peripheral perfusion Skin Other: Warm dry no rash Neuro General: patient oriented x3, gait normal, no focal motor deficits and CN's II- XI intact bilaterally Psych Other: Cooperative Course Course Course Narrative: RME, this is a rapid medical exam performed by Malcolm Freeman please refer to primary provider for complete H&P- 64-year-old female presents for evaluation of bright red blood per rectum. She is not anticoagulated. Plan for basic labs Medical Decision Making Medical Decision Making [facility] Narrative: 64-year-old female with a history of hyperlipidemia, constipation, diverticulosis, ovarian cysts, who presents with rectal bleeding since earlier today. Patient states she was straining to have a bowel movement, she noted bright red blood in the toilet,and on her leg. Patient had an isolated episode. Denies abdominal pain, nausea vomiting, fever. Problem: Age, known diverticulosis, constipation History: Per patient I have considered the following differential diagnoses: Internal versus external hemorrhoids, diverticulosis, diverticulitis, colitis Plan: Screening labs obtained from triage. The patient's exam was unremarkable, she had 1 isolated episode, her labs are stable. She has no pain to suggest diverticulitis versus colitis. I have advised her she needs a colonoscopy. She is in agreement with the plan. No indication for imaging at this time I have independently reviewed the following tests: Labs: No leukocytosis, not anemic, no electrolyte abnormality Differential Diagnosis Differential Diagnoses: The differential diagnosis associated with the presentation includes See medical decision-making Admission/Observation Consideration of admission/observation: Escalation of care including admission/observation considered Not applicable Lab Data [facility] Lab Attestation statement: I reviewed the patient's lab results. 02/11/25 16:55 02/11/25 16:55 Labs: Lab Results 02/11/25 Range/Units 16:55 WBC 6.6 (4.8-10.8) X10*3/uL RBC 5.35 (4.20-5.50) X10*6/uL Hgb 13.5 (12.0-16.0) g/dl Hct 42.1 (37.0-47.0) % MCV 78.7 L (80.0-98.0) fL MCH 25.2 L (27.0-33.0) pg MCHC 32.1 (31.0-35.0) g/dl RDW 14.8 (11.0-16.0) % Plt Count 237 (160-400) X10*3/uL MPV 10.3 (9.4-12.3) fL Immature Gran % (Auto) 0.3 (0.0-0.4) % Neut % (Auto) 54.8 (45-73) % Lymph % (Auto) 34.0 (20-40) % [place] % (Auto) 6.9 (2-11) % Eos % (Auto) 3.2 (0-4) % Baso % (Auto) 0.8 (0-2) % Lymph # (Auto) 2.3 (1.2-4.9) X10*3/uL [place] # (Auto) 0.5 (0.1-1.2) X10*3/uL Eos # (Auto) 0.2 (0.0-0.4) X10*3/uL Baso # (Auto) 0.1 (0.0-0.2) X10*3/uL Abs Immat Gran (auto) 0.02 (0.00-0.03) X10*3/uL Absolute Neuts (auto) 3.6 (2.0-8.3) x10*3/uL Absolute Nucleated RBC 0.000 (0.0-0.012) X10*3/uL Nucleated RBC % (auto) 0.0 (0.0-0.2) /100WBC Sodium 143 (135-145) mmol/L Potassium 3.8 (3.3-5.1) mmol/L Chloride 108 (96-108) mmol/L Carbon Dioxide 27 (22-29) mmol/L Anion Gap 12 (12-20) BUN 8 L (9-16) mg/dL Creatinine 0.73 (0.5-1.4) mg/dL Estim Creat Clear Calc 71.4 Estimated GFR > 60 Random Glucose 127 H (60-115) mg/dL Calcium 9.2 (8.4-10.2) mg/dL Total Bilirubin 0.3 (0.0-1.0) mg/dL AST 21 (5-31) U/L ALT 17 (0-31) U/L Alkaline Phosphatase 76 (39-117) U/L Total Protein 7.1 (6.5-8.0) g/dL Albumin 4.1 (3.5-5.0) g/dL Lipase 52 (8-78) U/L Discharge Plan Discharge Clinical Impression: Rectal bleeding Patient Disposition: Home, Self-Care Instructions: Rectal Bleeding (ED) Additional Instructions: All of your screening labs including your blood counts were stable. You need a colonoscopy as an outpatient. I do understand that you are waiting to be called to make an appointment. You should continue to contact your pattern keeper yourself , I would keep calling until you get an appointment. Return precautions , that would necessitate emergent medical assessment, would be for the onset of multiple large volume bloody bowel movements, severe abdominal pain or fevers. Prescriptions: No Action cetirizine [Allergy Relief (cetirizine)] 10 mg tablet 10 mg PO DAILY Qty: 90 0RF fosfomycin tromethamine 3 gram packet 3 g PO Q3D 9 Days Qty: 3 0RF Rx Instructions: One dose (one packet) every 3 days albuterol sulfate 2.5 mg/0.5 mL solution for nebulization 5 mg inhalation Q4H PRN (Reason: shortness of breath or wheezing) Qty: 30 0RF polyethylene glycol 3350 [Miralax] 17 gram/dose powder 238 g PO ONCE Qty: 238 0RF Rx Instructions: As directed by gastroenterology department at [facility] bisacodyl [Dulcolax (bisacodyl)] 5 mg tablet,delayed release (DR/EC) 5 mg PO BEDTIME Qty: 180 2RF estradiol [Estrace] 0.01 % (0.1 mg/gram) cream 1 g vaginal 3XW 90 Days Qty: 42.5 1RF Rx Instructions: Apply a pea-sized amount to urethra daily x1 month Then apply pea-sized amount to urethra 3 times per week thereafter meclizine 25 mg tablet 25 mg PO BEDTIME melatonin 5 mg tablet 5 mg PO BEDTIME PRN amitriptyline 10 mg tablet 10 mg PO BEDTIME 90 Days Qty: 90 1RF albuterol sulfate 90 mcg/actuation HFA aerosol inhaler 1 puff inhalation QID cholecalciferol (vitamin D3) 25 mcg (1,000 unit) capsule 25 mcg PO DAILY Qty: 90 3RF Pulmicort Flexhaler 180 mcg/actuation aerosol powdr breath activated 1 inh inhalation BID Qty: 1 1RF Interventions: ED Discharge Assessment Last Done: 02/11/25 22:38 Discharge Date/Time: 02/11/25 22:38 Print Language: Bruneian
[2025-02-11 17:01] LABS: MANUAL DIFF FLAG NO
[2025-02-11 17:02] LABS: Hematocrit 42.1 % (37.0-47.0); Hemoglobin 13.5 g/dl (12.0-16.0); Imm Gran Abs Auto 0.02 X10*3/uL (0.00-0.03); Imm Gran Pct Auto 0.3 % (0.0-0.4); Lymphocytes Absolute Auto 2.3 X10*3/uL (1.2-4.9); Mean Corpuscular HGB Conc 32.1 g/dl (31.0-35.0); Mean Corpuscular Hemoglobin 25.2 pg (27.0-33.0); Mean Corpuscular Volume 78.7 fL (80.0-98.0); NRBC Abs Auto 0.000 X10*3/uL (0.0-0.012); NRBC Pct Auto 0.0 /100WBC (0.0-0.2); Platelet Count 237 X10*3/uL (160-400); Red Blood Count 5.35 X10*6/uL (4.20-5.50); White Blood Count 6.6 X10*3/uL (4.8-10.8)
[2025-02-11 17:18] LABS: Alanine Aminotransferase 17 U/L (0-31); Albumin Level 4.1 g/dL (3.5-5.0); Alkaline Phosphatase 76 U/L (39-117); Anion Gap 12 (12-20); Aspartate Amino Transferase 21 U/L (5-31); Blood Urea Nitrogen 8 mg/dL (9-16); Calcium 9.2 mg/dL (8.4-10.2); Carbon Dioxide 27 mmol/L (22-29); Chloride 108 mmol/L (96-108); Creatinine Clr Calc Pharmacy 71.4; Estimated Glomerular Filt Rate > 60; Lipase 52 U/L (8-78); Potassium 3.8 mmol/L (3.3-5.1); Sodium 143 mmol/L (135-145); Total Protein 7.1 g/dL (6.5-8.0)
[2025-02-11 20:08] VITALS: BP 137/90; PULSE 86; RESP 18; TEMP 36.8; O2SAT 96
[2025-02-11 22:38] VITALS: BP 137/90; PULSE 86; RESP 18; TEMP 36.8; O2SAT 96
== END 2025-02-11 22:38 | disposition home or self-care (01) ==
PROVIDERS: Physician Assistant; Emergency Provider Emergency Medicine
DX: K92.1 Melena (principal); Z79.899 Other long term (current) drug therapy
CPT/HCPCS: 36415; 80053; 83690; 85025; 99283

== ENCOUNTER 2025-02-26 09:43 | Day surgery (SDC) | payer MEDICARE, MEDICAID, SELFPAY ==
--- NOTE | 2025-02-25 12:19 | HO.ANESPROP2 ---
Documented by User: Rose Flowers NP 02/25/25 12:21 HPI - Anesthesia Eval Consult details Narrative: 64yo F for Colonoscopy PMFSH Active Problems Active Problems: All Active Problems Dizziness (Acute) Pelvic organ prolapse quantification stage 1 cystocele (Acute) Pre-op exam (Acute) Lung crackles (Acute) Shortness of breath (Acute) Hypersomnolence (Acute) Osteopenia (Acute) Malpositioned IUD (Acute) Ovarian cyst (Acute) IUD (intrauterine device) in place (Acute) Recurrent UTI (Acute) Asthma (Acute) Overweight (BMI 25.0-29.9) (Acute) Annual physical exam (Acute) Hypercholesterolemia (Acute) Constipation (Acute) Lightheadedness (Acute) Right lower quadrant pain (Acute) Diverticulosis (Acute) Impaired glucose tolerance (Acute) Tension headache (Acute) Past Medical History Medical History (Updated 02/25/25 @ 11:43 by Myrna Ingram RN) Osteopenia Asthma Elevated cholesterol Borderline diabetes mellitus Tension headache Family History Family History Brother Prostate cancer Mother Colon cancer Surgical History Surgical History (Updated 02/26/25 @ 10:01 by Loretta Wright RN) Hx of colonoscopy History of eye surgery No pertinent past surgical history Social History Social History Housing: Apartment Patient Tobacco Use Status: Never used Tobacco Tobacco use type: Cigarette e-Cigarette/Vaping Use: Never Used Second Hand Smoke Exposure: No Have you been hit, kicked, punched, or otherwise hurt by someone within the past year? If so, by whom?: No Are you DNR?: No Advance Directives: No Advance Directives Information Provided: Yes service: No Cognitive needs: No Hearing needs: No Vision needs: No Meds Allergies Allergy/AdvReac Type Severity Reaction Status Date / Time aspirin Allergy Mild Hives Verified 02/11/25 15:01 Home Medications ?Medication ?Instructions ?Recorded ?Confirmed ?Last Taken ?Type albuterol sulfate 90 mcg/actuation 1 puff inhalation QID 07/01/24 02/26/25 Unknown History aerosol inhaler meclizine 25 mg tablet 25 mg PO BEDTIME 12/26/24 02/26/25 Unknown History melatonin 5 mg tablet 5 mg PO BEDTIME PRN Wheezing 12/26/24 02/26/25 Unknown History Exam Pertinent Lab Results Pertinent Lab Results: Laboratory Tests 02/11/25 16:55 WBC 6.6 Hgb 13.5 Hct 42.1 Plt Count 237 Sodium 143 Potassium 3.8 Chloride 108 Carbon Dioxide 27 BUN 8 L Creatinine 0.73 Narrative Narrative: EKG 08/2024 Vent. Rate : 93 BPM Atrial Rate : 93 BPM P-R Int : 166 ms QRS Dur : 92 ms QT Int : 364 ms P-R-T Axes : 30 -4 -1 degrees QTcB Int : 452 ms Normal sinus rhythm Normal ECG No previous ECGs available Assessment and Plan Assessment Anesthesia Assessment: Chart Reviewed Documented by User: Gurpreet Lizarraga MD 02/26/25 11:30 PMFSH Active Problems Active Problems: bAll Active Problems Dizziness (Acute) Pelvic organ prolapse quantification stage 1 cystocele (Acute) Pre-op exam (Acute) Lung crackles (Acute) Shortness of breath (Acute) Hypersomnolence (Acute) Osteopenia (Acute) Malpositioned IUD (Acute) Ovarian cyst (Acute) IUD (intrauterine device) in place (Acute) Recurrent UTI (Acute) Asthma (Acute) Overweight (BMI 25.0-29.9) (Acute) Annual physical exam (Acute) Hypercholesterolemia (Acute) Constipation (Acute) Lightheadedness (Acute) Right lower quadrant pain (Acute) Diverticulosis (Acute) Impaired glucose tolerance (Acute) Tension headache (Acute) Past Medical History Medical History (Updated 02/25/25 @ 11:43 by Myrna Ingram RN) Osteopenia Asthma Elevated cholesterol Borderline diabetes mellitus Tension headache Family History Family History Brother Prostate cancer Mother Colon cancer Family history of problems with anesthesia: No Surgical History Surgical History (Updated 02/26/25 @ 10:01 by Loretta Wright RN) Hx of colonoscopy History of eye surgery No pertinent past surgical history History of Problems with Anesthesia: No Social History Social History Housing: Apartment Patient Tobacco Use Status: Never used Tobacco Tobacco use type: Cigarette e-Cigarette/Vaping Use: Never Used Second Hand Smoke Exposure: No Have you been hit, kicked, punched, or otherwise hurt by someone within the past year? If so, by whom?: No Are you DNR?: No Advance Directives: No Advance Directives Information Provided: Yes service: No Cognitive needs: No Hearing needs: No Vision needs: No Meds Allergies Allergy/AdvReac Type Severity Reaction Status Date / Time aspirin Allergy Mild Hives Verified 02/11/25 15:01 Home Medications ?Medication ?Instructions ?Recorded ?Confirmed ?Last Taken ?Type albuterol sulfate 90 mcg/actuation 1 puff inhalation QID 07/01/24 02/26/25 Unknown History aerosol inhaler meclizine 25 mg tablet 25 mg PO BEDTIME 12/26/24 02/26/25 Unknown History melatonin 5 mg tablet 5 mg PO BEDTIME PRN Wheezing 12/26/24 02/26/25 Unknown History Exam Airway Mallampati Class: II TM Dist: <=3cm Neck ROM: Full Partial: Upper Heart: ok Lungs: ok Assessment and Plan Assessment Anesthesia Assessment: Anesthesia Plan Discussed Final Anesthetic Review Family History of Problems with Anesthesia: No History of Problems with Anesthesia: No NPO: Yes ASA Class: II Final Preanesthetic Review: No Changes in Pt Med Stat, Meds/Allgs Chart Reviewed, Consent Obtained/Reviewed and Anes Risks/Benef Reviewed Patient Risk: Intermediate Procedure Risk: Low Anesthetic Plan Anesthetic Plan: MAC: and Agree w/ Assess. and Plan Disposition: Standard PACU
[2025-02-25 15:26] VITALS: BMI 27.8
[2025-02-26 09:57] VITALS: BP 139/90; PULSE 93; RESP 20; TEMP 36.4; O2SAT 96; BMI 27.3
[2025-02-26] MEDS: Lactated Ringers 1,000 ML 100 ML IVCONT (10:12)
--- NOTE | 2025-02-26 11:54 | HO.OPN-COLON ---
Colonoscopy Operative Note Operative Note Date of Service: 02/26/25 Narrative: Operative Information Procedure Description: Colonoscopy Indication: screening Anesthesia: MAC COLONOSCOPY Instrument: Olympus variable stiffness pediatric scope 190L Colonoscopy Monitoring: Vital signs and clinical assessment, continuous EKG monitoring, Pulse oximetry, Carbon Dioxide monitoring and blood pressure monitoring were done throughout the procedure. Colon withdrawal time was 20 minutes. Procedure: The patient was placed in the left lateral decubitis position and pre-procedure medications were administered. After a digital rectal examination of the ano-rectum, the video colonoscope was inserted into the rectum and advanced through the colon to the cecum/TI. The colonoscope was slowly withdrawn in a retrograde panoramic fashion and the colon mucosa was carefully examined including a retroflexed view of the rectum. Findings and interventions are described below. Procedure Difficulty: moderate due to prep Findings: Terminal Ileum-normal Cecum:normal Ascending Colon: normal Transverse Colon -normal Descending Colon: 4-6 mm sessile polyp removed with cold snare Sigmoid Colon: semi pedunculated polyp 10-12 mm injected with epinephrine and removed with cold snare, x 1 clip applied to the stalk. Moderate diverticulosis Rectum: Retroflexion with small internal hemorrhoids seen, grade I Anorectum - normal Intervention: cold snare and epinephrine injection, Colon preparation: [place] Bowel Preparation Scale Right colon; 1-2 Transverse colon: 1-2 Left colon; 1-2 (0 = Unprepared colon segment with mucosa not seen due to solid stool that cannot be cleared. 1 = Portion of mucosa of the colon segment seen, but other areas of the colon segment not well seen due to staining, residual stool and/or opaque liquid. 2 = Minor amount of residual staining, small fragments of stool and/or opaque liquid, but mucosa of colon segment seen well. 3 = Entire mucosa of colon segment seen well with no residual staining, small fragments of stool or opaque liquid) Impression and Post Procedure Diagnosis: diverticulosis colon polyps internal hemorrhoids Plan: High fiber diet leaflet Avoid straining at stool, epsom salts and sitz bath, anusol supps or cream Repeat Colonoscopy in 6-8 months or earlier if clinically indicated --next time ensure compliance with prep, maybe 2 d of clears Above findings were reviewed with the patient and relevant handouts were provided if indicated.
--- NOTE | 2025-02-26 11:54 | MHC.SHP ---
Pre-Procedural Eval Section A - 24 Hr Update-Section A only Date of Service: 02/26/25 Section B - Complete if H&P > 30 days Chief Complaint: screening Relevant Family History (Specify if Yes): Yes Relevant Social History: None Present Medications: see Short Stay Collaborative assessment Medical History: Significant History (Osteopenia Asthma Elevated cholesterol Borderline diabetes mellitus Tension headache) History of Previous Operations: Relevant previous surgery/procedure and date(s) ( Hx of colonoscopy History of eye surgery) Allergies: Allergies Allergy/AdvReac Type Severity Reaction Status Date / Time aspirin Allergy Mild Hives Verified 02/11/25 15:01 Review of Systems Sugical H&P ROS: Negative: Constitution, Cardiovascular, Respiratory, Neurological, Psychiatric, Hem-Onc, Allergic/Immunologic, Gastrointestinal, Genitourinary, Musculoskeletal, Integumentary, Endocrine and Eyes/Ears/Nose/Throat Exam Surgical H&P Exam: Normal: HEENT, Normal: Heart, Normal: Lungs, Normal: Extremities, Normal: Abdomen, Normal: Skin and Normal: Neurological Plan Diagnosis/Plan: Unchanged I have reviewed the history and physical and performed a pertinent physical examination on my patient. No changes have occurred unless specified. Time Spent With Patient Time: Total time managing care of this patient today ____ minutes.
[2025-02-26 13:07] VITALS: BP 96/58; PULSE 71; RESP 14; TEMP 36.1; O2SAT 98
[2025-02-26 13:15] VITALS: BP 118/76; PULSE 70; RESP 16; O2SAT 98
[2025-02-26 13:30] VITALS: BP 133/87; PULSE 71; RESP 18; O2SAT 98
== END 2025-02-26 14:33 | disposition home or self-care (01) ==
PROVIDERS: Visit Provider Internal Medicine Gastroenterology
PROC: 0DJD8ZZ Inspection of Lower Intestinal Tract, Via Natural or Artificial Opening Endoscopic (ICD-10-PCS; CPT 45378; principal; 2025-02-26 13:40)
DX: Z12.11 Encounter for screening for malignant neoplasm of colon (principal); D12.4 Benign neoplasm of descending colon; D12.5 Benign neoplasm of sigmoid colon; K57.30 Diverticulosis of large intestine without perforation or abscess without bleeding; K64.0 First degree hemorrhoids; Z80.0 Family history of malignant neoplasm of digestive organs; K59.01 Slow transit constipation; E78.00 Pure hypercholesterolemia, unspecified; J45.909 Unspecified asthma, uncomplicated; Z79.899 Other long term (current) drug therapy
CPT/HCPCS: 45385; 45381; 88305; J0168; J2003; J2704; J3010

== ENCOUNTER → 2025-02-26 09:43 | Outpatient (BNV) | payer MEDICARE, MEDICAID, SELFPAY | PROVIDERS: Visit Provider Internal Medicine Gastroenterology | DX: Z12.11 Encounter for screening for malignant neoplasm of colon (principal); D12.4 Benign neoplasm of descending colon; D12.5 Benign neoplasm of sigmoid colon; K57.30 Diverticulosis of large intestine without perforation or abscess without bleeding; K64.0 First degree hemorrhoids | CPT/HCPCS: 45381; 45385 ==

== ENCOUNTER 2025-03-12 11:40 | Outpatient (AMB) | payer MEDICARE, MEDICAID, SELFPAY ==
--- NOTE | 2025-03-12 11:42 | MHC.OFFVIS ---
Intake Visit Reasons: 3m f/u Intake Note: Patient is present for 3M F/U Urology Medication:ESTRADIOL Antibiotic Allergy:NONE Blood Thinner:NONE Resaw Operator Required: No Resaw Operator Services: Resaw Operator Present Resaw Operator Name: SAIRA MORAN Allergies aspirin Allergy (Mild, Verified 03/12/25 12:46) Hives Medication List - Last Reconciled 03/12/25 by SEAMUS Neff- albuterol sulfate 5 mg inhalation Q4H PRN albuterol sulfate 90 mcg/actuation 1 puff inhalation QID amitriptyline 10 mg PO BEDTIME 90 days budesonide 180 mcg/actuation (Pulmicort Flexhaler) 1 inh inhalation BID cetirizine (Allergy Relief (cetirizine)) 10 mg PO DAILY cholecalciferol (vitamin D3) 25 mcg PO DAILY estradiol 0.01%(0.1mg/gram) (Estrace) 1 g vaginal 3XW 90 days fosfomycin tromethamine 3 grams PO Q3D 9 days meclizine 25 mg PO BEDTIME melatonin 5 mg PO BEDTIME PRN HPI Comments Details: Nicole is a very pleasant 64-year-old [place]-speaking female patient of Dr. Castro. She has a past medical history of constipation and asthma. She presents to the office today for follow-up of her recurrent urinary tract infections. In discussion with the patient today she reports shortly after her in office visit 3 months ago she was straining with a bowel movement in her pessary came out. She reports having followed up with [facility] urogynecology in his undergoing further workup for pelvic organ prolapse. She currently denies any UTI like symptoms. However she does report having had a urinary tract infection and has since completed antibiotic therapy that was ordered by [facility] urogynecology. In office urinalysis results reviewed with the patient today. Negative leukocytes negative nitrates. She does report compliance with Estrace cream as prescribed. Previous workup has included renal imaging as well as bladder ultrasound. 07/19 & 12/17 bladder ultrasound noting the urinary bladder is unremarkable. Renal ultrasound noting bilateral kidneys are normal in size and echotexture. No collecting system dilatation of either kidney. No acute findings. Urine cultures are as follows: 05/18 E coli, 07/19 E coli, 09/16 ecoli, 10/17 no growth microgen: 12/17 E coli, Enterobacter hormaechei, Enterococcus faecalis, prevotella biva, Streptococcus agalactiae She does report a longstanding history of constipation. We discussed correlation of constipation with recurrent urinary tract infections. She denies hematuria, foul smelling urine, changes to urinary stream, flank pain, fever, and or chills. She otherwise offers no other issues or concerns at this time. [facility] Medical History Osteopenia Asthma Elevated cholesterol Borderline diabetes mellitus Tension headache Surgical History (Updated 02/26/25 @ 10:01 by Loretta Wright RN) Hx of colonoscopy History of eye surgery No pertinent past surgical history Family History Brother Prostate cancer Mother Colon cancer Social History Housing: Apartment Patient Tobacco Use Status: Never used Tobacco Tobacco use type: Cigarette e-Cigarette/Vaping Use: Never Used Second Hand Smoke Exposure: No service: No Cognitive needs: No Hearing needs: No Vision needs: No Female Reproductive History Menstrual Age of Menarche: 12 Review of Systems Const All systems reviewed & are unremarkable except as noted in HPI and below Physical Exam Const General: cooperative, healthy appearing, comfortable, no acute distress, well developed, alert and awake Orientation/consciousness: patient oriented x3 Limitations: language barrier HEENT Head: Yes normal to inspection, Yes normocephalic and Yes atraumatic Ears: hearing grossly normal bilaterally Eyes General: appearance normal, both eyes and all related structures Neck Neck: Yes normal visual inspection and Yes trachea midline Chest Chest palpation & inspection: normal inspection of the chest Resp Effort & Inspection: normal respiratory effort and able to speak in complete sentences Cardio Rate: regular rate GI Inspection: Yes normal to inspection General: Yes no CVA tenderness Back/Spine/Pelvis Back: no CVA tenderness Skin General skin exam: no rashes or lesions noted Neuro General: patient oriented x3 Extrem General: Yes normal to inspection Psych Appearance: grossly normal and well kempt Mental Status: mental status grossly normal Speech and movement: Normal speech and movement present and Clear speech present Affect: normal affect Attitude: cooperative Thought process: Normal thought process present Thought content: Normal thought content present Insight: Fair insight present (Psych) Judgement: Fair judgement present (Psych) Results AMB Urinalysis, Automated UA Leukoctes 0 Manuel/uL Last Edit by Janeth Esquivel [facility] on 03/12/25 13:47 UA Nitrite Negative Last Edit by Janeth Esquivel [facility] on 03/12/25 13:47 UA Urobilinogen 0.2 mg/dL Last Edit by Janeth Esquivel [facility] on 03/12/25 13:47 UA Protein 0 mg/dL Last Edit by Janeth Esquivel [facility] on 03/12/25 13:47 UA pH 6.0 Last Edit by Janeth Esquivel [facility] on 03/12/25 13:47 UA Blood 0 Jose J/uL Last Edit by Janeth Esquivel [facility] on 03/12/25 13:47 UA Specific [place] 1.010 Last Edit by Janeth Esquivel [facility] on 03/12/25 13:47 UA Ketone Negative Last Edit by Janeth Esquivel [facility] on 03/12/25 13:47 UA Bilirubin 0 mg/dL Last Edit by Janeth Esquivel [facility] on 03/12/25 13:47 UA Glucose 0 mg/dL Last Edit by Janeth Esquivel [facility] on 03/12/25 13:47 Results Reviewed Results Reviewed: Laboratory Last Values Urine pH (Auto) 6.0 03/12/25 13:46 Specific [place] (Auto) 1.010 03/12/25 13:46 Urine Protein (Auto) 0 mg/dL 03/12/25 13:46 Glucose (UA)(Auto) 0 mg/dL 03/12/25 13:46 Urine Ketones (Auto) Negative 03/12/25 13:46 Urine Blood (Auto) 0 Jose J/uL 03/12/25 13:46 Urine Nitrite (Auto) Negative 03/12/25 13:46 Urine Bilirubin (Auto) 0 mg/dL 03/12/25 13:46 Urine Urobilinogen (Auto) 0.2 mg/dL 03/12/25 13:46 Leukocyte Esterase (Auto) 0 Manuel/uL 03/12/25 13:46 Assessment & Plan Assessment & Plan (1) Recurrent UTI: Code(s): N39.0 - Urinary tract infection, site not specified Category: Medical (2) Pelvic organ prolapse quantification stage 1 cystocele: Code(s): N81.10 - Cystocele, unspecified Category: Medical Plan In office urinalysis results reviewed with the patient today; as noted above. Continue to follow-up with urogynecology as planned. She currently denies any UTI like symptoms. Continue Estrace cream as discussed and prescribed. We discussed potential causes of recurrent urinary tract infections as well as pelvic organ prolapse. All questions were answered Discussed UTI prevention with D mannose supplement, vitamin-C, increasing fluid intake, behavioral therapy with timed voiding, perineal hygiene and postcoital voiding, and management of constipation with stool softeners and increased fiber intake. Follow-up in 6 months with [facility]; or sooner with any issues, concerns, and or questions. Orders: Orders AMB Urinalysis Automated Today Z13.9 - Encounter for screening, unspecified Medications: Discontinued fosfomycin tromethamine One dose (one packet) every 3 days Discontinued Reason: Doctor's Order 3 grams PO Q3D 9 days 3 ea 0RF N39.0 - Urinary tract infection, site not specified Patient Instructions: The patient had an opportunity to ask questions regarding the treatment plan. All questions were answered. Physical exam, labs, and imaging were discussed and reviewed in detail. As well as risks, benefits, and discussion of treatment choices. No major barriers to understanding were identified. The patient expressed understanding and agreement with the above treatment plan. The patient was made aware they should contact our office by phone for worsening of their current condition, the appearance of new symptoms, or with any questions or concerns. Compliance is encouraged with any medications and follow up testing that is ordered. It is a privilege to be allowed the opportunity to participate in? your urological care.? Again, if you have any questions or concerns If you have any questions or concerns please do not hesitate to contact me. The office is [phone]. This note is constructed using voice recognition software. While every effort has been made to ensure accuracy information management manager errors may have been included. Yours sincerely, SONI Neff Coding Level of Care Code Est Pt Level 3 (02230) Complex EM visit Add On G2211 Diagnoses Recurrent UTI N39.0 Pelvic organ prolapse quantification stage 1 cystocele N81.10
== END 2025-03-12 12:16 | disposition home or self-care (01) ==
LOC: HO.HUSH 11:40
PROVIDERS: Visit Provider Nurse Practitioner Family
DX: N39.0 Urinary tract infection, site not specified (principal); N81.10 Cystocele, unspecified; Z13.9 Encounter for screening, unspecified
CPT/HCPCS: 99213; G2211

== ENCOUNTER → 2025-03-12 11:40 | Outpatient (BNVA) | payer MEDICARE, MEDICAID, SELFPAY | PROVIDERS: Visit Provider Nurse Practitioner Family | DX: N81.10 Cystocele, unspecified (principal); N39.0 Urinary tract infection, site not specified | CPT/HCPCS: 81003; 99212 ==

== ENCOUNTER 2025-04-13 14:27 | Outpatient (REF) | payer MEDICARE, SELFPAY ==
--- NOTE | ~2025-04-13 | US_ITS ---
EXAMINATION: US PELVIS CLINICAL INFORMATION: Unspecified ovarian cyst, unspecified side. COMPARISON: 08/08/2024. TECHNIQUE: Ultrasound of the pelvis is performed using both transabdominal and transvaginal transducers along with Doppler. Transvaginal imaging is performed due to inadequate visualization transabdominally. FINDINGS: Uterus: The uterus is anteverted, anteflexed, and measures 7.1 x 4.6 x 5.6 cm. The cervix has a normal appearance. There are nabothian cysts. The double wall endometrial thickness is 3 mm. The uterus is smooth in contour and has mildly heterogeneous myometrial echogenicity. There is a similar fundal fibroid measuring 2.0 x 1.9 x 1.9 cm, previously measuring 1.8 x 1.6 x 1.6 cm. Adnexa: Both ovaries are visualized. There is normal color flow to the adnexa. There is no ovarian torsion. There is no pelvic ascites or fluid collection. There are no adnexal masses. In the left adnexa, there is a paraovarian cyst measuring 2.3 x 1.1 x 1.0 cm, similar to the prior examination when it measured 2.0 x 1.3 x 1.6 cm. Right ovary measures 2.3 x 1.1 x 1.4 cm. Volume = 1.9 mL. Normal sonographic appearance. Left ovary measures 2.0 x 1.2 x 1.5 cm. Volume = 2.1 mL. Normal sonographic appearance. US/US pelvic and transvaginal IMPRESSION: 1. Uterus demonstrating a solitary central intramural fundal fibroid measuring 2.0 x 1.9 x 1.9 cm, previously measuring 1.8 x 1.6 x 1.6 cm. 2. Normal endometrium at 3 mm thickness. 3. Normal ovaries bilaterally. No free fluid. 4. There is a similar left paraovarian cyst measuring 2.3 x 1.1 x 1.0 cm. Electronically signed by: Mohit Au MD 04/13/2025 03:36 PM EDT
== END 2025-04-13 14:28 | disposition home or self-care (01) ==
LOC: HO.US 14:27
PROVIDERS: Visit Provider Obstetrics & Gynecology
DX: N83.209 Unspecified ovarian cyst, unspecified side (principal)
CPT/HCPCS: 76830; 76856

== ENCOUNTER → 2025-04-13 14:28 | Outpatient (BNV) | payer MEDICARE, SELFPAY | PROVIDERS: Visit Provider Radiology Diagnostic Radiology | DX: D25.1 Intramural leiomyoma of uterus (principal); N83.202 Unspecified ovarian cyst, left side | CPT/HCPCS: 76830; 76856 ==

== ENCOUNTER 2025-05-19 09:49 | Outpatient (AMB) | payer MEDICARE, SELFPAY ==
--- NOTE | 2025-05-19 10:06 | A.OFFVIS_ITS ---
Vital Signs 05/19/25 10:13 Height 5 ft 2 in Weight 150 lb BMI 27.4 Intake Visit Reasons: Annual/U/S results Allergies aspirin Allergy (Mild, Verified 05/19/25 10:23) Hives HPI Comments Details: Presenting for pelvic ultrasound follow-up which was done in 04/13 and showed the following: Uterus: The uterus is anteverted, anteflexed, and measures 7.1 x 4.6 x 5.6 cm. The cervix has a normal appearance. There are nabothian cysts. The double wall endometrial thickness is 3 mm. The uterus is smooth in contour and has mildly heterogeneous myometrial echogenicity. There is a similar fundal fibroid measuring 2.0 x 1.9 x 1.9 cm, previously measuring 1.8 x 1.6 x 1.6 cm. Adnexa: Both ovaries are visualized. There is normal color flow to the adnexa. There is no ovarian torsion. There is no pelvic ascites or fluid collection. There are no adnexal masses. In the left adnexa, there is a paraovarian cyst measuring 2.3 x 1.1 x 1.0 cm, similar to the prior examination when it measured 2.0 x 1.3 x 1.6 cm. Right ovary measures 2.3 x 1.1 x 1.4 cm. Volume = 1.9 mL. Normal sonographic appearance. Left ovary measures 2.0 x 1.2 x 1.5 cm. Volume = 2.1 mL. Normal sonographic appearance. US/US pelvic and transvaginal IMPRESSION: 1. Uterus demonstrating a solitary central intramural fundal fibroid measuring 2.0 x 1.9 x 1.9 cm, previously measuring 1.8 x 1.6 x 1.6 cm. 2. Normal endometrium at 3 mm thickness. 3. Normal ovaries bilaterally. No free fluid. 4. There is a similar left paraovarian cyst measuring 2.3 x 1.1 x 1.0 cm. 09/27/2024 CA 125 were within normal [facility] Medical History Osteopenia Asthma Elevated cholesterol Borderline diabetes mellitus Tension headache Surgical History Hx of colonoscopy History of eye surgery No pertinent past surgical history Family History Brother Prostate cancer Mother Colon cancer Social History Housing: Apartment Patient Tobacco Use Status: Never used Tobacco Tobacco use type: Cigarette e-Cigarette/Vaping Use: Never Used Second Hand Smoke Exposure: No service: No Cognitive needs: No Hearing needs: No Vision needs: No Female Reproductive History Menstrual Age of Menarche: 12 Review of Systems Const All systems reviewed & are unremarkable except as noted in HPI and below Card Reports as per HPI Resp Reports as per HPI GI Reports as per HPI and Reports no additional complaints Reports as per HPI Assessment & Plan Assessment & Plan (1) Uterine myoma: Code(s): D25.9 - Leiomyoma of uterus, unspecified Category: Medical Plan: Discussed with the patient the findings on pelvic ultrasound & the risk of myosarcoma; in addition reviewed with the patient that malignancy and pre malignancy cannot be ruled out without hysterectomy for pathological evaluation ; furthermore, explained to the patient the limitation of pelvic ultrasound and endometrial biopsy in the setting. Discussed with the patient the options of treatment including expectant management versus hysterectomy; the pros and cons, risks benefits of each approach were discussed with the patient including the fact that in cases of myosarcoma, surgical treatment can lead to early diagnosis and positively affects the prognosis; after further discussion, the patient decided to proceed with expectant management. Will repeat pelvic ultrasound periodically. Instructions given to patient to call in case any of the following occurs: pressure symptoms, abnormal uterine bleeding, pelvic pain; and to schedule a s ix-months pelvic ultrasound (order placed) and a follow-up appointment . All questions answered, the patient verbalized understanding and agreed with the plan . (2) Para-ovarian cyst: Code(s): Q50.5 - Embryonic cyst of broad ligament Category: Medical Plan: CA 125 ordered. Discussed with the patient the paraovarian cyst by ultrasound. Discussed with the patient the Ultrasound findings, the main limitation of transvaginal ultrasonography alone as a diagnostic tool to distinguish benign from malignant masses relates to its lack of specificity and low positive predictive value for cancer. The differential diagnosis discussed with the patient includes the following but not limited to: benign and malignant gynecological and non- gynecological causes. Discussed with the patient options of treatment , in case CA 125 is not elevated, including laparoscopy ovarian salpingo-oophorectomy vs. expectant management with repeat US in repeating pelvic US in 6 months from previous US. If the ovarian cyst is persistent larger and / or changes in Ultrasound appearance & became complex looking, or higher CA 125 will refer to gynecologic Oncology. All pros, cons, risks and benefits of each approach were discussed with the patient including but not limited to a delay in the diagnosis and treatment of ovarian cancer affecting the prognosis; The patient decided to go ahead with expectant management. All questions were answered & the patient ve rbalized understanding and agreed with the plan Orders: Orders CA-125 Today Q50.5 - Embryonic cyst of broad ligament US pelvic and transvaginal 6 Months D25.9 - Leiomyoma of uterus, unspecified, Q50.5 - Embryonic cyst of broad ligament Coding Level of Care Code Est Pt Level 3 (11360) Diagnoses Uterine myoma D25.9 Para-ovarian cyst Q50.5
[2025-05-19 10:13] VITALS: BMI 27.4
== END 2025-05-19 10:23 | disposition home or self-care (01) ==
PROVIDERS: Visit Provider Obstetrics & Gynecology
DX: D25.9 Leiomyoma of uterus, unspecified (principal); Q50.5 Embryonic cyst of broad ligament
CPT/HCPCS: 99213

== ENCOUNTER → 2025-05-19 09:49 | Outpatient (BNVA) | payer MEDICARE, SELFPAY | PROVIDERS: Visit Provider Obstetrics & Gynecology | DX: D25.9 Leiomyoma of uterus, unspecified (principal); Q50.5 Embryonic cyst of broad ligament | CPT/HCPCS: 99212 ==

== ENCOUNTER 2025-06-03 13:42 | Outpatient (REF) | payer MEDICARE, SELFPAY ==
--- NOTE | ~2025-06-03 | MM_ITS ---
EXAMINATION: MM SCREENING DIGITAL BREAST TOMOSYNTHESIS, BILATERAL CLINICAL INFORMATION: Screening. Asymptomatic. COMPARISON: Mammography: Comparison is made with available priors TECHNIQUE: Digital breast mammography with tomosynthesis is performed in both the craniocaudal and mediolateral oblique views along with computer-aided detection (CAD). FINDINGS: There are scattered areas of fibroglandular density. There are no significant masses, abnormal calcifications, or other abnormalities. MM/MM tomosynthesis screening BI IMPRESSION: No mammographic evidence of malignancy. ASSESSMENT: BI-RADS Category 1: Negative RECOMMENDATION: Routine annual mammography screening. 1 year F/U This examination should not preclude the clinical evaluation of a suspicious palpable abnormality. This patient's information was entered into a reminder system with a target due date for their next mammogram. Electronically signed by: Beverly Sevilla DO 06/05/2025 02:44 PM OILVE
== END 2025-06-03 13:43 | disposition home or self-care (01) ==
LOC: HO.MAMMO 13:42
DX: Z12.31 Encounter for screening mammogram for malignant neoplasm of breast (principal)
CPT/HCPCS: 77063; 77067

== ENCOUNTER → 2025-06-03 13:46 | Outpatient (BNV) | payer MEDICARE, SELFPAY | PROVIDERS: Visit Provider Internal Medicine | DX: Z12.31 Encounter for screening mammogram for malignant neoplasm of breast (principal) | CPT/HCPCS: 77063; 77067 ==

== ENCOUNTER 2025-06-05 09:26 | Outpatient (REF) | payer MEDICARE, SELFPAY | END 2025-06-05 09:27 | disposition home or self-care (01) | LOC: HO.LNP 09:26 | DX: R10.31 Right lower quadrant pain (principal); E78.00 Pure hypercholesterolemia, unspecified; R73.02 Impaired glucose tolerance (oral); E66.3 Overweight; J45.20 Mild intermittent asthma, uncomplicated; N81.10 Cystocele, unspecified; R09.81 Nasal congestion | CPT/HCPCS: 81003; 87086; 87088; 87186; 99212 ==

== ENCOUNTER 2025-06-05 09:26 | Outpatient (AMB) | payer MEDICARE, SELFPAY ==
--- NOTE | 2025-06-05 09:28 | MHC.PC.OV ---
Vital Signs 06/05/25 09:29 Height 5 ft 2 in Weight 154 lb 6 oz BMI 28.2 BP 120/70 Blood Pressure Location Lt brachial Position Sitting Pulse 93 Pulse Source Pulse Oximeter Temp 96.4 F L Temp Source Temporal Artery Scan Pulse Oximetry (%) 98 Oxygen Delivery Method Room Air Intake Visit Reasons: f/u HLD and asthma Intake Note: Patient is here to follow up on HLD, Asthma. Computer Applications Instructor Required: No Watch Repairer Apprentice: Not Required per policy Accompanied by: Self / Same As Patient Allergies aspirin Allergy (Mild, Verified 06/05/25 09:29) Hives Medication List - Last Reconciled 06/05/25 by Arlene Castro PA-C albuterol sulfate 90 mcg/actuation 1 puff inhalation QID albuterol sulfate 5 mg inhalation Q4H PRN amitriptyline 10 mg PO BEDTIME 90 days bisacodyl (Dulcolax (bisacodyl)) 5 mg PO BEDTIME PRN budesonide 180 mcg/actuation (Pulmicort Flexhaler) 1 inh inhalation BID cetirizine (Allergy Relief (cetirizine)) 10 mg PO DAILY cholecalciferol (vitamin D3) 25 mcg PO DAILY estradiol 0.01%(0.1mg/gram) (Estrace) 1 g vaginal 3XW 90 days meclizine 25 mg PO BEDTIME melatonin 5 mg PO BEDTIME PRN Tobacco use date assessed: 06/05/25 Fall risk assessment: No Falls in past year Last assessed Fall Risk: 06/05/25 Dental Screening Dental Screen Date: 07/01/24 HPI f/u HLD and asthma HPI Details 64-year-old female with past medical history of impaired glucose tolerance and constipation last seen 11/2024 coming in for follow up. In review of the notes, she was seen by metal annealer 04/2025 plan for expectant management of leiomyoma with repeat pelvic US and follow up in 6 months. Seen by urology 02/2025 continued with estrace cream and follow up in 6 months. translator/interpreter [id number] Syl was used for duration of this visit. Presenting with right-sided pelvic pain and symptoms of an upper respiratory infection. The patient reports an approximately one to two-month history of sharp, strong, intermittent pain in the right side of her pelvis. The pain occurs daily, comes and goes, and lasts for about half an hour, with no specific triggers or alleviating factors identified, though she notes massage can ease it. The pain's intensity has remained the same since onset. She has a history of a uterine fibroid and an ovarian cyst, confirmed by a recent pelvic and endovaginal sonogram, but her sleep medicine physician stated the pain was unrelated. She also reports experiencing constipation and gas. Additionally, for the past few days since Sunday, she has had symptoms of an upper respiratory infection, including voice loss, congestion, cough, and mild body aches, but no fever. She expresses a preference to avoid antibiotics for these symptoms. [facility] Medical History Osteopenia Asthma Elevated cholesterol Borderline diabetes mellitus Tension headache Surgical History Hx of colonoscopy History of eye surgery No pertinent past surgical history Family History Brother Prostate cancer Mother Colon cancer Social History Housing: Apartment Patient Tobacco Use Status: Never used Tobacco Tobacco use type: Cigarette e-Cigarette/Vaping Use: Never Used Second Hand Smoke Exposure: No service: No Current occupational status: retired Cognitive needs: No Hearing needs: No Vision needs: No Female Reproductive History Menstrual Age of Menarche: 12 Questionnaire Thrive Questionnaire Date Thrive assessed: 06/25/24 I am a: Patient What is your living situation today?: I have a steady place to live Within the past 12 months, did the food you bought not last and you didn't have the money to get more?: Sometimes True Within the past 12 months, did you worry whether your food would run out before you got money to buy more?: Sometimes True Do you have trouble paying for medicines?: No Do you have trouble getting transportation to medical appointments?: No Do you have trouble paying your heating and electricity bill?: I choose not to answer this question Do you have trouble taking care of your child, family member or friend?: I choose not to answer this question Do you have trouble with day-to-day activities such as bathing, preparing meals, shopping, managing finances, etc.?: No Are you currently unemployed and looking for a job?: No Are you interested in more education?: I choose not to answer this question Please select the resources that you would like help with: Housing/Alf Currently or been in a relationship where the following occur: No concerns reported THRIVE Score: 2 JOSE CARLOS-7 AMB Questionnaire JOSE CARLOS-7 Date JOSE CARLOS - 7 assessed: 07/01/24 Source: Developed by Drs. Wiliam Strickland, Cheri Moreno, Brandon Pruitt and colleagues, with an educational pedro from [place]. Review of Systems Const Denies body aches, Denies chills, Denies fever(s), Denies headache(s) and Denies poor appetite Eyes Reports no additional complaints ENT Reports as per HPI, Denies dizziness and Denies headache(s) Card Denies chest pain, Denies edema, Denies lightheadedness and Denies dyspnea Resp Denies dyspnea GI Reports as per HPI, Reports abdominal pain, Reports constipation, Denies nausea and Denies vomiting Reports no additional complaints Musc Reports no additional complaints and Denies abnormal gait Skin/Breast Reports system reviewed and no additional complaints, except as documented Neuro Denies abnormal gait, Denies dizziness and Denies headache(s) Psych Reports no additional complaints Physical exam (Primary Care) Vital Signs: Last Vital Signs Temp 96.4 F L 06/05/25 09:29 Pulse 93 06/05/25 09:29 BP 120/70 06/05/25 09:29 Pulse Ox 98 06/05/25 09:29 Oxygen Delivery Method Room Air 06/05/25 09:29 BMI result Body Mass Index 28.2 Tobacco/Smoking Status: Tobacco use Status Tobacco use date assessed 06/05/25 06/05/25 09:34 Patient Tobacco Use Status Never used Tobacco 06/05/25 09:34 Tobacco use type Cigarette 06/05/25 09:34 e-Cigarette/Vaping Use Never Used 06/05/25 09:34 Thrive Assessment: Date of Thrive Assessment Date Thrive assessed 06/25/24 06/05/25 09:34 Currently or been in a relationship where the following occur: No concerns reported Const General: cooperative, healthy appearing, comfortable and no acute distress Orientation/consciousness: patient oriented x3 HENMT Head: Yes normocephalic Ears: hearing grossly normal bilaterally General nose exam: Normal external nose present Eyes General: appearance normal, both eyes and all related structures Conjunctivae: conjunctivae normal Neck Neck: Yes full ROM and Yes no lymphadenopathy Resp Effort & Inspection: normal respiratory effort Auscultation: clear to auscultation bilaterally, no crackles, no rales, no rhonchi and no wheezes Cardio Rate: regular rate Rhythm: regular rhythm GI Palpation (GI): Soft to palpation, not firm, nontender, no guarding, not rigid, no pulsatile masses and No Rebound tenderness present General: Yes no CVA tenderness Back/Spine/Pelvis Back: no CVA tenderness Skin General skin exam: no rashes or lesions noted Neuro General: patient oriented x3 Gait exam (Neuro): Normal gait present Extrem General: Yes normal to inspection, Yes full ROM and No edema Psych Affect: normal affect Attitude: cooperative Insight: Good insight present (Psych) Judgement: Good judgement present (Psych) Results AMB Urinalysis, Automated UA Leukoctes 0 Manuel/uL Last Edit by Arcelia Horne Lizzette on 06/05/25 10:47 UA Nitrite Positive Last Edit by Arcelia Horne [facility] on 06/05/25 10:47 UA Urobilinogen 0 mg/dL Last Edit by Arcelia Horne Lizzette on 06/05/25 10:47 UA Protein 0 mg/dL Last Edit by Arcelia Horne [facility] on 06/05/25 10:47 UA pH 6.0 Last Edit by Arcelia Horne Lizzette on 06/05/25 10:47 UA Blood 0 Jose J/uL Last Edit by Arcelia Horne [facility] on 06/05/25 10:47 UA Specific [place] 1.010 Last Edit by Arcelia Horne Lizzette on 06/05/25 10:47 UA Ketone Negative Last Edit by Arcelia Horne Lizzette on 06/05/25 10:47 UA Bilirubin 0 mg/dL Last Edit by Arcelia Horne [facility] on 06/05/25 10:47 UA Glucose 0 mg/dL Last Edit by Arcelia Horne [facility] on 06/05/25 10:47 Results Reviewed Results Reviewed: Laboratory Last Values Urine pH (Auto) 6.0 06/05/25 10:45 Specific [place] (Auto) 1.010 06/05/25 10:45 Urine Protein (Auto) 0 mg/dL 06/05/25 10:45 Glucose (UA)(Auto) 0 mg/dL 06/05/25 10:45 Urine Ketones (Auto) Negative 06/05/25 10:45 Urine Blood (Auto) 0 Jose J/uL 06/05/25 10:45 Urine Nitrite (Auto) Positive 06/05/25 10:45 Urine Bilirubin (Auto) 0 mg/dL 06/05/25 10:45 Urine Urobilinogen (Auto) 0 mg/dL 06/05/25 10:45 Leukocyte Esterase (Auto) 0 Manuel/uL 06/05/25 10:45 Coding Level of Care Code Est Pt Level 4 (43709) Diagnoses Hypercholesterolemia E78.00 Impaired glucose tolerance R73.02 Overweight (BMI 25.0-29.9) E66.3 Mild intermittent asthma without complication J45.20 Asthma complication type: uncomplicated Asthma persistence: intermittent Asthma severity: mild Pelvic organ prolapse quantification stage 1 cystocele N81.10 Right lower quadrant pain R10.31 Sinus congestion R09.81 Assessment & Plan Assessment & Plan (1) Hypercholesterolemia: Comment: 11/2024 ASCVD risk 4.6% not recommending statin Code(s): E78.00 - Pure hypercholesterolemia, unspecified Category: Medical Plan: Avoid foods that are high in cholesterol such as red meat, fried foods, eggs and baked goods. Triglyceride goal of less than 150 and LDL goal of less than 130. Reminded about blood work (2) Impaired glucose tolerance: Code(s): R73.02 - Impaired glucose tolerance (oral) Category: Medical Plan: Decrease the amount of carbohydrates such as pasta, bread, rice, and potatoes and limit the amount of sweets. Although fruits are generally healthy they should be eaten in moderation as they are still high in sugar. (3) Overweight (BMI 25.0-29.9): Code(s): E66.3 - Overweight Category: Medical Plan: Healthy diet and regular exercise is encouraged. (4) Asthma: Code(s): J45.909 - Unspecified asthma, uncomplicated Category: Medical Qualifiers: Asthma complication type: uncomplicated Asthma persistence: intermittent Asthma severity: mild Qualified Code(s): J45.20 - Mild intermittent asthma, uncomplicated Plan: Asthma currently controlled on present medications. Avoid triggers such as allergies. (5) Pelvic organ prolapse quantification stage 1 cystocele: Code(s): N81.10 - Cystocele, unspecified Category: Medical Plan: Continue [place] [facility] [place] She has appointment coming up in 6 months with imaging. she will continue on estrace cream as well. (6) Right lower quadrant pain: Code(s): R10.31 - Right lower quadrant pain Category: Medical Plan: The patient presents with intermittent, sharp right pelvic pain for 1-2 months. Appendicitis is unlikely given the intermittent and long-standing nature of the pain, as well as the lack of significant tenderness on examination. The pain is located lower than the typical location for gallbladder or liver issues, and is more consistent with pelvic organs such as the uterus and ovaries. A recent pelvic ultrasound showed a cyst and fibroid, but further imaging is not deemed necessary at this time. She has also been instructed to keep a detailed pain log including time, duration, food intake, and associated activities to identify potential triggers, and to follow up with the log in about a week. Given her concurrent constipation, she will receive dietary recommendations for foods to avoid to see if that alleviates the pain. Follow-up with Gynecology or a referral to Gastroenterology are potential next steps. Urinalysis in the office did reveal nitrites and plan for urine culture for further evaluation. (7) Sinus congestion: Code(s): R09.81 - Nasal congestion Category: Medical Plan: The patient reports symptoms of congestion, cough, voice loss, and mild body aches that began on Sunday. She denies fever and prefers not to take antibiotics. A prescription will be sent for medication to help with the cough and congestion. Plan This note was constructed using voice recognition software. While every effort has been made to ensure accuracy and bottle hop, still areas may have been included sometimes these areas may affect the content or meeting of the given symptoms. Total time spent caring for the patient today was 30 minutes. This includes time spent before the visit reviewing the chart, time spent during the visit, and time spent after the visit and documentation. Patient was informed and verbally consented to the use of an ambient scribe for clinic note documentation during this visit. Orders: Orders Urine Culture Today R10.31 - Right lower quadrant pain AMB Urinalysis Automated Today Z13.9 - Encounter for screening, unspecified Medications: New guaifenesin ER (Mucinex) 600 mg PO BID PRN 30 tabs 0RF congestion Refilled albuterol sulfate 5 mg inhalation Q4H PRN 30 ea 0RF shortness of breath or wheezing
[2025-06-05 09:29] VITALS: BP 120/70; PULSE 93; TEMP 35.8; O2SAT 98; BMI 28.2
== END 2025-06-05 11:07 | disposition home or self-care (01) ==
LOC: HO.HMCH 09:27
DX: E78.00 Pure hypercholesterolemia, unspecified (principal); R73.02 Impaired glucose tolerance (oral); E66.3 Overweight; J45.20 Mild intermittent asthma, uncomplicated; N81.10 Cystocele, unspecified; R10.31 Right lower quadrant pain; R09.81 Nasal congestion; Z13.9 Encounter for screening, unspecified